=== PATIENT | female | born 1985 | race African-American/Black ===

== ENCOUNTER 2024-09-28 11:52 | Emergency (ER) | payer OTHER, SELFPAY ==
--- NOTE | ~2024-09-28 | CT_ITS ---
EXAMINATION: CT abdomen pelvis w con DATE: 09/28/2024 14:26 INDICATION: Diffuse abdominal pain and tenderness to palpation TECHNIQUE: Computed tomography (CT) of the abdomen and pelvis was performed with 100 mL Omnipaque-350 intravenous contrast. Severe motion artifact in the initial postcontrast images. Repeat scanning whi ch was accomplished in the delayed phase. Automated exposure control and iterative reconstruction syed hnique were employed. The dose-length product was 2290.62 mGy-cm. COMPARISON: None. FINDINGS: Lower thorax: Unremarkable Liver: Normal. Biliary/Gallbladder: Gallbladder is normal. No bile duct dilation. Pancreas: No mass or duct dilation. Spleen: Normal. Adrenals:No mass. Kidneys: No suspicious mass, obstructing stone, or hydronephrosis. 3 mm nonobstructing calcification in the right lower pole. GI tract: Small hiatal hernia. Mild wall edema in the transverse colon. No small or large bowel dilat ion. Normal appendix. Mesentery/Peritoneum: No ascites, mass, or free air. Retroperitoneum: No mass. Pelvis: Lobular contour of the left lower uterine segment likely due to fibroid. Normal bilateral ova saeid and urinary bladder. Soft Tissues: Small uncomplicated fat-containing umbilical hernia. Bones: No acute osseous finding. IMPRESSION: Initial post contrast images limited by severe motion artifact. Repeat imaging limited by delayed pha se. Mild wall edema in the transverse colon as can be seen with colitis. Uterine fibroid. Otherwise, no definite acute abdominopelvic process detected, within the limitations noted above. Reviewed, dictated and finalized at location K. IMPRESSION: Initial post contrast images limited by severe motion artifact. Repeat imaging limited by delayed phase. Mild wall edema in the transverse colon as can be seen with colitis. Uterine fibroid. Otherwise, no definite acute abdominopelvic process detected, within the limita tions noted above.
--- OUTSIDE RECORDS SUMMARY | 2024-09-28 11:53 | XMS_ITS | Clinical Summary ---
Author Organization [facility] Address [facility] [place] [address] Care Team Providers Care Operations Intern Name Role Phone Jasmyne Barry Primary Care Provider Allergies No known active allergies Medications amLODIPine (NORVASC) 10 MG tablet Take 1 tablet (10 mg total) by mouth daily. 30 tablet 12/07/2023 Active Active Problems Problem Noted Date Diagnosed Date Hypertensive urgency 12/05/2023 Tonsillitis 11/24/2022 Social History Tobacco Use Types Packs/Day Years Used Date Smoking Tobacco: Former Cigarettes Smokeless Tobacco: Never Tobacco Cessation:Counseling Given: Not Answered Alcohol Use Standard Drinks/Week Comments Not Currently 0 (1 standard drink = 0.6 oz pur e alcohol) Humiliation, Afraid, Rape, and Kick questionnair e Answer Date Recorded Within the last year, have y ou been afraid of your partner or ex-partner? No 11/24/2022 Within the last year, have y ou been humiliated or emotionally abused in other ways by your partner or ex-partner? No Within the last year, have y ou been kicked, hit, slapped, or otherwise physically hurt by your partner or ex-partner? No 11/24/2022 Within the last year, have y ou been raped or forced to have any kind of sexual activity by your partner or ex-partner? No 11/24/2022 Overall Financial Resource Strain (CARDIA) Answe r Date Recorded How hard is it for you to pa y for the very basics like food, housing, medical care, and heating? Not very hard 11/24/2022 Hunger Vital Sign Answer Date Recorded Within the past 12 months, y ou worried that your food would run out before you got the money to buy more. Never true 11/25/19 23 Within the past 12 months, t he food you bought just didn't last and you didn't have money to get more. Never true 11/24/2022 PRAPARE - Transportation Answer Date Re corded In the past 12 months, has l ack of transportation kept you from medical appointments or from getting medications? No 11/04 In the past 12 months, has l ack of transportation kept you from meetings, work, or from getting things needed for daily living? No 11/24/2022 Housing Stability Vital Sign Answer Garo e Recorded In the last 12 months, was t here a time when you were not able to pay the mortgage or rent on time? No 11/24/2022 In the last 12 months, how many places have you lived? 1 11/24/2022 In the last 12 months, was t here a time when you did not have a steady place to sleep or slept in a half-way (including now)? No 11/24/2022 Comments No Sex and Gender Information Value Date Recorded Sex Assigned at Not on file Legal Sex Female 2:08 PM [employer] Gender Identity Not on file Sexual Orientation Not on file Last Filed Vital Signs Vital Sign Reading Time Taken Comments Blood Pressure 130/83 12/06/2023 7:16 AM CDT Pulse 76 12/06/2023 7:16 AM CDT Temperature 37.1 C (98.8 F) 12/06/2023 11:22 AM CDT Respiratory Rate 13 12/06/2023 11:2 2 AM CDT Oxygen Saturation 92% 12/06/2023 7:1 6 AM CDT Inhaled Oxygen Concentration - - Weight 107.4 kg (236 lb 12.4 oz) 12/06/2023 11:22 AM CDT entered incorrectly on admission. Height 175.3 cm (5' 9) 12/05/2023 6:18 PM CDT Body Mass Index 34.97 12/05/2023 6:18 PM CDT Plan of Treatment Health Maintenance Due Date Last Done Comments Cervical Cancer Screening Pap Smear (Age 30 to 64) Every 3 Years 1986 Annual Physical 1989 Hepatitis C 2004 HPV Vaccines (1 - 3-dose SCDM series) 2013 Cervical Cancer Screening Pap with HPV Testing (Age 30 to 64) Every 5 Years 2016 Cervical Cancer Screening with HPV 2016 COVID-19 Vaccine (2023- season) 2023 DTaP, Tdap and Td Vaccines (6 - Td or Tdap) 11/26/2028 11/26/2018, 01/07/2004, 11/01/1992, Additional history exists Hepatitis B Vaccines Completed 07/22/1997, 03/24/1997, 02/10/1997 Meningococcal B Vaccine Aged Out No l onger eligible based on patient's age to complete this topic Meningococcal Vaccine Aged Out No tiffany paul eligible based on patient's age to complete this topic Pneumococcal Vaccine: Pediatrics (0 to 5 Years) and At-Risk Patients (6 to 49 Years) Aged Out No longer eligible based on patient's age to complete this topic RSV Immunizations Under 20 Months Aged Out No longer eligible based on patient's age to complete this topic Goals Goal Patient Goal Type Associated Problems Recent Progress Patient-Stated? Author Health - patient able to perform ADLs independently Lifestyle No Ronnie Del Rio RN Health - patient able to perform ADLs independently Lifestyle No Alma Leos RN Insurance [facility] Advance Directives * Full Code (Latest Code Status on File) Date Activated Date Inactivated Comments 12/05/2023 9:58 PM 12/06/2023 4:51 PM * Full Code Date Activated Date Inactivated Comments 11/24/2022 2:35 PM 11/25/2022 2:28 PM Care Teams Operations Intern Relationship Specialty Start Date End Date Jasmyne Barry PA [address] [place] [address] PCP - General PHYSICIAN [employer] 11/25/22
--- OUTSIDE RECORDS SUMMARY | 2024-09-28 11:54 | XMS_ITS | Data Portability ---
[facility] Organization [facility] Address [address] [place] [address] Care Team Providers Care Snowboarder Name Role Phone RENÉ JJ Health Science Instructor Assessment Encounter Date Assessment Date Assessment LastModified by Organization Details LastModified Time 05/28/2024 05/28/2024 Arabella WYATT [email or web address] Not available 05/28/2024 17:36:26 Plan of Treatment Reminders Order Date Submit Date Provider Last Modified By Organization Details Last Modified Time Details Appointments None recorded. Lab HbA1c (hemoglobi n A1c), blood 2024 025 [email or web address] In-Office Order, Internal Use Only DO Not Attach Compendium DO Not Attach Compendium, Do Not Delete/merge, [id number] 5 17:51:15 culture, urine 2023 024 [facility] LAB[facility], Theodore [address], [address], [place], [address], 4 08:31:20 urinalysis , dipstick 2023 024 In-Office Order, Internal Use Only DO Not Attach Compendium DO Not Attach Compendium, Do Not Delete/merge, [id number] 10:48:13 CBC w/ auto diff 2023 024 [facility] SANCHEZ, Theodore [address], [address], [place], [address], 4 06:22:10 lipid panel, serum 2023 024 [facility] BERMUDEZRP, Theodore Martinez, [address], [place], [address], 4 06:22:06 HbA1c (hemoglobi n A1c), blood 2023 024 [facility] BERMUDEZRP, Theodore [address], [address], [place], [address], 4 06:22:09 HIV 1 + 2, meaningful use set 2023 024 [facility] SANCHEZ, Theodore Lyon Juan, [address], [place], [address], 4 06:22:12 T3, free, serum or plasma 2023 024 [facility] BERMUDEZ, Theodore Lyon [address], [address], [place], [address], 4 06:22:11 TSH + free T4, serum 2023 024 [facility] SANCHEZ, Theodore Lyon [address], [address], [place], [address], 4 06:22:05 CMP, serum or plasma 2023 024 [facility] BERMUDEZ, Theodore Lyon [address], [address], [place], [address], 4 06:22:07 albumin/cr eatinine, mass ratio, urine 2023 024 [facility] BERMUDEZXAVIER, Theodore Lyon Juan, [address], [place], [address], 4 10:13:32 Referral None recorded. Procedures fine needle aspiration , ultrasound guided, thyroid (PROC) 2024 025 [facility] ([facility]), [address] [place], [address], 5 15:47:59 Surgeries None recorded. Imaging US, kidney 2023 024 [facility] ([facility]), [address] [place], [address], 4 11:52:24 US, thyroid 2023 024 [facility] ([facility]), [address] [place], [address], 4 12:02:01 Medication Orders metformin ER 500 mg tablet,ext ended release 24 hr 2024 025 [facility], [address] [place] [address], [address], 5 17:51:21 hydroxyzin e HCl 25 mg tablet 2024 025 [facility], [address] [place] [address], [address], 5 17:51:30 sertraline 50 mg tablet 2024 025 [facility], [address] [place] [address], [address], 5 17:51:26 Miralax 17 gram/dose oral powder 2024 025 [facility], [address] [place] [address], [address], 5 17:51:23 amlodipine 10 mg tablet 2024 025 [facility], [address] [place] [address], [address], 5 17:51:31 losartan 100 mg tablet 2024 025 [facility] [address], [address] [place] [address], [address], 5 17:51:27 amlodipine 10 mg tablet 2024 025 [facility] [address], [address] [place] [address], [address], 5 16:31:34 losartan 50 mg tablet 2024 025 [facility] [address], [address] [place] [address], [address], 5 18:12:36 sertraline 50 mg tablet 2024 025 [facility] [address], [address] [place] [address], [address], 5 16:31:35 hydroxyzin e HCl 25 mg tablet 2024 025 [facility] [address], [address] [place] [address], [address], 5 16:31:31 acetaminop hen 500 mg tablet 2023 025 [facility] [address], [address] [place] [address], [address], 5 16:45:12 sertraline 50 mg tablet 2023 024 [facility] [address], [address] [place] [address], [address], 4 16:52:29 acetaminop hen 500 mg tablet [email or web address] [place] [address] [address], [address] [place] [address], [address], 5 16:45:01 amlodipine 10 mg tablet 2023 024 [facility], [address] [place], [address], 4 11:30:20 losartan 25 mg tablet 2023 024 [email or web address] [facility], [address] [place], [address], 5 17:47:56 sertraline 50 mg tablet 2023 024 [facility], [address] [place], [address], 11:30:21 sertraline 25 mg tablet 2023 025 [facility] [address], [address] [place], [address], 15:52:17 amlodipine 10 mg tablet 2023 024 [facility] [address], [facility] [place], [address], 10:48:31 Patient TargetsNo targets recorded. Patient Instructions Encounter Date Encounter Id Patient Instructions Last Modified By Organization Details Last Modified Time 11/26/2023 [id number] A healthy lifestyle: care instructions [email or web address] Not available 11/26/2023 10:48:13 learning about high blood pressure Not available 11/26/2023 10:48:13 12/12/2023 [id number] A healthy lifestyle: care instructions [email or web address] Not available 12/12/2023 11:30:01 tension headache : care instructions [email or web address] Not available 12/12/2023 11:30:01 01/07/2024 [id number] A healthy lifestyle: care instructions [email or web address] Not available 01/07/2024 16:52:24 tension headache : care instructions [email or web address] Not available 01/07/2024 16:52:24 04/15/2024 [id number] A healthy lifestyle: care instructions [email or web address] Not available 04/15/2024 16:31:17 05/28/2024 [id number] learning about swallowing problems Not available 05/28/2024 17:51:15 thyroid nodules: care instructions Not available 05/28/2024 17:51:15 A healthy lifestyle: care instructions [email or web address] Not available 05/28/2024 17:51:47 constipation: care instructions [email or web address] Not available 05/28/2024 17:51:15 learning about high blood pressure [email or web address] Not available 05/28/2024 17:51:15 Reason for Referral None Reported. Results Created Date Observation Date Name Description Value Unit Range Abnormal Flag Note LastModifiedBy Organization Detail LastModifiedTime 11/26/19 24 2023 ALBUM IN/CR EATIN INE RATIO ,URIN E creatinine, urine 149.7 mg/dL notest ab. Not Available [facility] ([facility]) [address] [place], [address], 2023 10:13:32 11/26/19 24 2023 ALBUM IN/CR EATIN INE RATIO ,URIN E albumin, urine 31.7 ug/mL notest ab. Not Available [facility] ([facility]) [address] [place], [address], 2023 10:13:32 11/26/19 24 2023 ALBUM IN/CR EATIN INE RATIO ,URIN E alb/creat ratio 21 mg/g_ creat 0-29 Rosemary l: 0 - 29 Moder ately incre ased: 30 - 300 Sever tricia incre ased: >300 Not Available [facility] ([facility]) [address] [place], [address], 2023 10:13:32 11/26/19 24 11/28/2023 URINE CULTU RE, ROUTI NE urine culture, routine FINAL REPORT Not Available [facility] ([facility]) [address] [place], [address], 11/28/2023 08:31:20 11/26/19 24 11/28/2023 URINE CULTU RE, ROUTI NE result 1 COMMEN T Mixed uroge nital faheem 50,00 0-100 ,000 colon y formi ng units per mL Not Available [facility] ([facility]) [address] [facility], [place], [address], 11/28/2023 08:31:20 11/26/19 24 11/26/2023 urina lysis , dipst ick Leukocytes Negati ve Not Available In-Office Order Internal Use Only DO Not Attach Compendium DO Not Attach Compendium, Do Not Delete/merge, 11/26/2023 10:29:39 11/26/19 24 11/26/2023 urina lysis , dipst ick Nitrite negati ve Not Available In-Office Order Internal Use Only DO Not Attach Compendium DO Not Attach Compendium, Do Not Delete/merge, 11/26/2023 10:29:39 11/26/19 24 11/26/2023 urina lysis , dipst ick Urobilinogen 1 Not Available In-Of fice Order Internal Use Only DO Not Attach Compendium DO Not Attach Compendium, Do Not Delete/merge, 11/26/2023 10:29:39 11/26/19 24 11/26/2023 urina lysis , dipst ick Protein Negati ve Not Available In-Office Order Internal Use Only DO Not Attach Compendium DO Not Attach Compendium, Do Not Delete/merge, 11/26/2023 10:29:39 11/26/19 24 11/26/2023 urina lysis , dipst ick pH 7.0 Not Available In-Office Order Internal Use Only DO Not Attach Compendium DO Not Attach Compendium, Do Not Delete/merge, 11/26/2023 10:29:39 11/26/19 24 11/26/2023 urina lysis , dipst ick Blood Negati ve Not Available In-Office Order Internal Use Only DO Not Attach Compendium DO Not Attach Compendium, Do Not Delete/merge, 11/26/2023 10:29:39 11/26/19 24 11/26/2023 urina lysis , dipst ick Specific Weather[place] 1.020 Not Available In-Off ice Order Internal Use Only DO Not Attach Compendium DO Not Attach Compendium, Do Not Delete/merge, [facility] 11/26/2023 10:29:39 11/26/19 24 11/26/2023 urina lysis , dipst ick Ketone Negati ve Not Available In-Office Order Internal Use Only DO Not Attach Compendium DO Not Attach Compendium, Do Not Delete/merge, [facility] 11/26/2023 10:29:39 11/26/19 24 11/26/2023 urina lysis , dipst ick Bilirubin Negati ve Not Available In-Office Order Internal Use Only DO Not Attach Compendium DO Not Attach Compendium, Do Not Delete/merge, [facility] 11/26/2023 10:29:39 11/26/19 24 11/26/2023 urina lysis , dipst ick Glucose Negati ve Not Available In-Office Order Internal Use Only DO Not Attach Compendium DO Not Attach Compendium, Do Not Delete/merge, [facility] 11/26/2023 10:29:39 11/26/19 24 11/26/2023 urina lysis , dipst ick Appearance Clear Not Available In-Offi ce Order Internal Use Only DO Not Attach Compendium DO Not Attach Compendium, Do Not Delete/merge, [facility] 11/26/2023 10:29:39 11/26/19 24 11/26/2023 urina lysis , dipst ick Color Yellow Not Available In-Office Order Internal Use Only DO Not Attach Compendium DO Not Attach Compendium, Do Not Delete/merge, [facility] 11/26/2023 10:29:39 12/05/1912/06/2023 Phosp hate [Mass /volu me] in Serum or Plasm a phosphate [mass/volume ] in serum or plasma 2.2 text: 2.5 - 4.9 mg/dL low PHOSP HORUS 2.2 (L) 2.5 - 4.9 MG/DL 12/05 1:00 AM CDT [facility] Not Available Not Available 04/15/2024 04:24:10 12/05/1912/06/2023 Phosp hate [Mass /volu me] in Serum or Plasm a interpretati on and review of laboratory results Abnorm al Not Available Not Available 04:24:10 12/05/19 24 12/06/2023 Magne sium [Mass /volu me] in Serum or Plasm a magnesium [mass/volume ] in serum or plasma 2.2 text: 1.8 - 2.4 mg/dL MAGNE SIUM 2.2 1.8 - 2.4 MG/DL 12/05 1:00 AM CDT [facility] Not Available Not Available 04/15/2024 04:24:10 12/05/1912/05/2023 aPTT in Plate let poor plasm a by Coagu latio n assay APTT in platelet poor plasma by coagulation assay 30.1 text: 25.1 - 36.5 sec PTT 30.1 25.1 - 36.5 SEC 12/04 9:22 PM CDT [facility] Not Available Not Available 04/15/2024 04:24:10 12/05/1912/05/2023 Proth rombi n time (PT) prothrombin time (PT) 11.7 text: 10.2 - 12.9 sec PROTI ME 11.7 10.2 - 12.9 SEC 12/04 9:22 PM CDT [facility] Not Available Not Available 04/15/2024 04:24:10 12/05/19 24 12/05/2023 Proth rombi n time (PT) INR in platelet poor plasma by coagulation assay 1 INR 1.0 12/04 9:22 PM [facility] Not Available Not Available 04/15/2024 04:24:10 12/05/19 24 12/05/2023 Compr ehens gene metab olic 2000 panel - Serum or Plasm a glucose [mass/volume ] in serum or plasma 137 text: 70 - 99 mg/dL high GLUCO SE 137 (H) 70 - 99 MG/DL 12/04 9:16 PM CDT [facility] Not Available Not Available 04/15/2024 04:24:10 12/05/19 24 12/05/2023 Compr ehens gene metab olic 2000 panel - Serum or Plasm a urea nitrogen [mass/volume ] in serum or plasma 10 text: 7 - 18 mg/dL BUN 10 7 - 18 MG/DL 12/04 9:16 PM CDT [facility] Not Available Not Available 04/15/2024 04:24:10 12/05/19 24 12/05/2023 Compr ehens gene metab olic 2000 panel - Serum or Plasm a creatinine [mass/volume ] in serum or plasma 0.71 text: 0.55 - 1.02 mg/dL CREAT ININE S/P/B 0.71 0.55 - 1.02 MG/DL 12/04 9:16 PM CDT [facility] Not Available Not Available 04/15/2024 04:24:10 12/05/19 24 12/05/2023 Compr ehens gene metab olic 2000 panel - Serum or Plasm a sodium [moles/volum e] in serum or plasma 136 text: 136 - 145 mmol/L SODIU M S/P/B 136 136 - 145 MMOL/ L 12/04 9:16 PM CDT [facility] Not Available Not Available 04/15/2024 04:24:10 12/05/19 24 12/05/2023 Compr ehens gene metab olic 2000 panel - Serum or Plasm a potassium [moles/volum e] in serum or plasma 3.3 text: 3.5 - 5.1 mmol/L low POTAS SIUM S/P/B 3.3 (L) 3.5 - 5.1 MMOL/ L 12/04 9:16 PM CDT [facility] Not Available Not Available 04/15/2024 04:24:10 12/05/19 24 12/05/2023 Compr ehens gene metab olic 1999 panel - Serum or Plasm a chloride [moles/volum e] in serum or plasma 107 text: 97 - 115 mmol/L CHLOR FRANKLYN S/P/B 107 97 - 115 MMOL/ L 12/04 9:16 PM CDT [facility] Not Available Not Available 04/15/2024 04:24:10 12/05/19 24 12/05/2023 Compr ehens gene metab olic 1999 panel - Serum or Plasm a carbon dioxide, total [moles/volum e] in serum or plasma 22.9 text: 21 - 32 mmol/L CO2 22.9 21 - 32 MMOL/ L 12/04 9:16 PM CDT [facility] Not Available Not Available 04/15/2024 04:24:10 12/05/19 24 12/05/2023 Compr ehens gene metab olic 2000 panel - Serum or Plasm a calcium [mass/volume ] in serum or plasma 9 text: 8.5 - 10.1 mg/dL CALCI UM S/P/B 9.0 8.5 - 10.1 MG/DL 12/04 9:16 PM CDT [facility] Not Available Not Available 04/15/2024 04:24:10 12/05/19 24 12/05/2023 Compr ens gene metab olic 2000 panel - Serum or Plasm a bilirubin.to luis [mass/volume ] in serum or plasma 0.5 text: 0.2 - 1.2 mg/dL BILIR UBIN TOTAL S/P/B 0.5 0.2 - 1.2 MG/DL 12/04 9:16 PM CDT [facility] Not Available Not Available 04/15/2024 04:24:10 12/05/19 24 12/05/2023 Compr ehens gene metab olic 2000 panel - Serum or Plasm a protein [mass/volume ] in serum or plasma 8.2 text: 6.4 - 8.2 g/dL TOTAL PROTE IN S/P/B 8.2 6.4 - 8.2 G/DL 12/04 9:16 PM CDT [facility] Not Available Not Available 04/15/2024 04:24:10 12/05/19 24 12/05/2023 Compr ehens gene metab olic 1999 panel - Serum or Plasm a albumin [mass/volume ] in serum or plasma 4.1 text: 3.4 - 5.0 g/dL ALBUM IN S/P/B 4.1 3.4 - 5.0 G/DL 12/04 9:16 PM CDT [facility] Not Available Not Available 04/15/2024 04:24:10 12/05/1912/05/2023 Compr ehens gene metab olic 1999 panel - Serum or Plasm a aspartate aminotransfe rase [enzymatic activity/vol ume] in serum or plasma 35 U/L low: 15U/Lh igh: 37U/L AST 35 15 - 37 U/L 12/04 9:16 PM CDT [facility] Not Available Not Available 04/15/2024 04:24:10 12/05/19 24 12/05/2023 Compr ehens gene metab olic 2000 panel - Serum or Plasm a alanine aminotransfe rase [enzymatic activity/vol ume] in serum or plasma 46 U/L low: 14U/Lh igh: 55U/L ALT 46 14 - 55 U/L 12/04 9:16 PM CDT [facility] Not Available Not Available 04/15/2024 04:24:10 12/05/19 24 12/05/2023 Compr ehens gene metab olic 2000 panel - Serum or Plasm a alkaline phosphatase [enzymatic activity/vol ume] in serum or plasma 90 U/L low: 50U/Lh igh: 136U/L ALKAL INE PHOSP HATAS E S/P/B 90 50 - 136 U/L 12/04 9:16 PM CDT [facility] Not Available Not Available 04/15/2024 04:24:10 12/05/19 24 12/05/2023 Compr ehens gene metab olic 1999 panel - Serum or Plasm a anion gap in serum or plasma 6.1 text: 2 - 10 mmol/L ANION GAP 6.1 2 - 10 MMOL/ L 12/04 9:16 PM CDT [facility] Not Available Not Available 04/15/2024 04:24:10 12/05/19 24 12/05/2023 Compr ehens gene metab olic 1999 panel - Serum or Plasm a urea nitrogen/cre atinine [mass ratio] in serum or plasma 14.2 low: 6high: 26 BUN CREAT ININE RATIO 14.2 6 - 26 12/04 9:16 PM CDT [facility] Not Available Not Available 04/15/2024 04:24:10 [facility]05[facility] - Serum or Plasm a albumin/glob ulin [mass ratio] in serum or plasma 1 text: 1.0 - 2.0 ratio A/G RATIO 1.0 1.0 - 2.0 RATIO 12/04 9:16 PM CDT [facility] Not Available Not Available 04/15/2024 04:24:10 12/05/1912/05/2023 [facility] ehens gene metab olic 2000 panel - Serum or Plasm a glomerular filtration rate/1.73 sq M.predicted [volume rate/area] in serum, plasma or blood by creatinine-b ased formula (CKD-epi 2020) text: >90 mL/min /1.73 M2 GFR ESTIM ATE >90 >90 ML/IL N/1.7 3 M2 12/04 9:16 PM CDT [facility] Not Available Not Available 04/15/2024 04:24:10 12/05/19 24 12/05/2023 [facility] LIKECHARITYens gene metab olic 2000 panel - Serum or Plasm a interpretati on and review of laboratory results Abnorm al Not Available Not Available 04:24:10 12/05/19 24 12/05/2023 CBC W Auto Diffe renti al panel - Blood leukocytes [#/volume] in blood by automated count 10.83 text: 4.5 - 11.0 x10'3/ uL WBC 10.83 4.5 - 11.0 x10'3 /uL 12/04 8:47 PM CDT [facility] Not Available Not Available 04/15/2024 04:24:10 12/05/19 24 12/05/2023 CBC W Auto Diffe renti al panel - Blood erythrocytes [#/volume] in blood by automated count 4.7 text: 4.20 - 5.40 x10'6/ uL RBC 4.70 4.20 - 5.40 x10'6 /uL 12/04 8:47 PM CDT [facility] Not Available Not Available 04/15/2024 04:24:10 12/05/19 24 12/05/2023 CBC W Auto Diffe cyrus al panel - Blood hemoglobin [mass/volume ] in blood 14.5 text: 12.0 - 16.0 g/dL HGB 14.5 12.0 - 16.0 G/DL 12/04 8:47 PM CDT [facility] Not Available Not Available 04/15/2024 04:24:10 12/05/19 24 12/05/2023 CBC W Auto Diffe enedinati al panel - Blood hematocrit [volume fraction] of blood 42.6 % low: 38%hig h: 48% HCT 42.6 38.0 - 48.0 % 12/04 8:47 PM CDT [facility] Not Available Not Available 04/15/2024 04:24:10 12/05/19 24 12/05/2023 CBC W Auto Diffe renti al panel - Blood MCV [entitic volume] 90.6 text: 81.0 - 99.0 fL MCV 90.6 81.0 - 99.0 FL 12/04 8:47 PM CDT [facility] Not Available Not Available 04/15/2024 04:24:10 12/05/19 24 12/05/2023 CBC W Auto Diffe renti al panel - Blood MCH [entitic mass] 30.9 pg low: 27pghi gh: 31pg MCH 30.9 27.0 - 31.0 PG 12/04 8:47 PM CDT [facility] Not Available Not Available 04/15/2024 04:24:10 12/05/19 24 12/05/2023 CBC W Auto Diffe renti al panel - Blood MCHC [mass/volume ] 34 text: 32.0 - 36.0 g/dL MCHC 34.0 32.0 - 36.0 G/DL 12/04 8:47 PM CDT [facility] Not Available Not Available 04/15/2024 04:24:10 12/05/19 24 12/05/2023 CBC W Auto Diffe renti al panel - Blood erythrocyte distribution width [entitic volume] by automated count 13.4 % low: 11.5%h igh: 14.5% RDW 13.4 11.5 - 14.5 % 12/04 8:47 PM CDT [facility] Not Available Not Available 04/15/2024 04:24:10 12/05/19 24 12/05/2023 CBC W Auto Diffe renti al panel - Blood platelets [#/volume] in blood 217 text: 130 - 400 x10'3/ uL PLT 217 130 - 400 x10'3 /uL 12/04 8:47 PM CDT [facility] Not Available Not Available 04/15/2024 04:24:10 12/05/19 24 12/05/2023 CBC W Auto Diffe renti al panel - Blood platelet mean volume [entitic volume] in blood 13 text: 9.3 - 12.2 fL high MPV 13.0 (H) 9.3 - 12.2 FL 12/04 8:47 PM CDT [facility] Not Available Not Available 04/15/2024 04:24:10 12/05/19 24 12/05/2023 CBC W Auto Diffe renti al panel - Blood differential cell count method - blood AUTOMA COMPA DIFFER ENTIAL DIFFE RENTI AL TYPE AUTOM ATED DIFFE RENTI AL 12/04 8:47 PM CDT [facility] Not Available Not Available 04/15/2024 04:24:10 12/05/19 24 12/05/2023 CBC W Auto Diffe renti al panel - Blood neutrophils/ 100 leukocytes in blood by automated count 53.5 % NEUTR OPHIL S % 53.5 % 12/04 8:47 PM CDT [facility] Not Available Not Available 04/15/2024 04:24:10 12/05/19 24 12/05/2023 CBC W Auto Diffe renti al panel - Blood lymphocytes/ 100 leukocytes in blood by automated count 34.5 % LYMPH OCYTE S % 34.5 % 12/04 8:47 PM CDT [facility] Not Available Not Available 04/15/2024 04:24:10 12/05/19 24 12/05/2023 CBC W Auto Diffe renti al panel - Blood monocytes/10 0 leukocytes in blood by automated count 8.3 % MONOC YTES % 8.3 % 12/04 8:47 PM CDT [facility] Not Available Not Available 04/15/2024 04:24:10 12/05/19 24 12/05/2023 CBC W Auto Diffe renti al panel - Blood eosinophils/ 100 leukocytes in blood by automated count 2.7 % EOSIN OPHIL S 2.7 % 12/04 8:47 PM CDT [facility] Not Available Not Available 04/15/2024 04:24:10 12/05/19 24 12/05/2023 CBC W Auto Diffe renti al panel - Blood basophils/10 0 leukocytes in blood by automated count 0.6 % BASOP HILS 0.6 % 12/04 8:47 PM CDT [facility] Not Available Not Available 04/15/2024 04:24:10 12/05/19 24 12/05/2023 CBC W Auto Diffe renti al panel - Blood immature granulocytes /100 leukocytes in blood by automated count 0.4 % IMMAT URE GRANS % 0.4 % 12/04 8:47 PM CDT [facility] Not Available Not Available 04/15/2024 04:24:10 12/05/19 24 12/05/2023 CBC W Auto Diffe renti al panel - Blood neutrophils [#/volume] in blood 5.79 text: 1.80 - 7.70 x10'3/ uL ABS. NEUTR OPHIL S 5.79 1.80 - 7.70 x10'3 /uL 12/04 8:47 PM CDT [facility] Not Available Not Available 04/15/2024 04:24:10 12/05/19 24 12/05/2023 CBC W Auto Diffe renti al panel - Blood lymphocytes [#/volume] in blood 3.74 text: 1.00 - 4.80 x10'3/ uL ABS. LYMPH OCYTE S 3.74 1.00 - 4.80 x10'3 /uL 12/04 8:47 PM CDT [facility] Not Available Not Available 04/15/2024 04:24:10 12/05/19 24 12/05/2023 CBC W Auto Diffe renti al panel - Blood monocytes [#/volume] in blood 0.9 text: 0.24 - 0.86 x10'3/ uL high ABS. MONOC YTES 0.90 (H) 0.24 - 0.86 x10'3 /uL 12/04 8:47 PM CDT [facility] Not Available Not Available 04/15/2024 04:24:10 12/05/19 24 12/05/2023 CBC W Auto Diffe renti al panel - Blood eosinophils [#/volume] in blood 0.29 text: 0.04 - 0.36 x10'3/ uL ABS. EOSIN OPHIL S 0.29 0.04 - 0.36 x10'3 /uL 12/04 8:47 PM CDT [facility] Not Available Not Available 04/15/2024 04:24:10 12/05/19 24 12/05/2023 CBC W Auto Diffe renti al panel - Blood basophils [#/volume] in blood 0.07 text: 0.01 - 0.08 x10'3/ uL ABS. BASOP HILS 0.07 0.01 - 0.08 x10'3 /uL 12/04 8:47 PM CDT [facility] Not Available Not Available 04/15/2024 04:24:10 12/05/19 24 12/05/2023 CBC W Auto Diffe renti al panel - Blood immature granulocytes [#/volume] in blood 0.04 text: 0.00 - 0.49 x10'3/ uL ABS. IMMAT URE GRANU LOCYT ES 0.04 0.00 - 0.49 x10'3 /uL 12/04 8:47 PM CDT [facility] Not Available Not Available 04/15/2024 04:24:10 12/05/19 24 12/05/2023 CBC W Auto Diffe renti al panel - Blood interpretati on and review of laboratory results Abnorm al Not Available Not Available 04:24:10 12/06/19 24 12/06/2023 Basic metab olic 2000 panel - Serum or Plasm a glucose [mass/volume ] in serum or plasma 150 text: 70 - 99 mg/dL high GLUCO SE 150 (H) 70 - 99 MG/DL 12/05 6:54 AM CDT [facility] Not Available Not Available 04/15/2024 04:24:11 12/06/19 24 12/06/2023 Basic metab olic 2000 panel - Serum or Plasm a urea nitrogen [mass/volume ] in serum or plasma 9 text: 7 - 18 mg/dL BUN 9 7 - 18 MG/DL 12/05 6:54 AM CDT [facility] Not Available Not Available 04/15/2024 04:24:11 12/06/19 24 12/06/2023 Basic metab olic 2000 panel - Serum or Plasm a creatinine [mass/volume ] in serum or plasma 0.81 text: 0.55 - 1.02 mg/dL CREAT ININE S/P/B 0.81 0.55 - 1.02 MG/DL 12/05 6:54 AM CDT [facility] Not Available Not Available 04/15/2024 04:24:11 12/06/1912/06/2023 Basic metab olic 1999 panel - Serum or Plasm a sodium [moles/volum e] in serum or plasma 136 text: 136 - 145 mmol/L SODIU M S/P/B 136 136 - 145 MMOL/ L 12/05 6:54 AM CDT [facility] Not Available Not Available 04/15/2024 04:24:11 12/06/1912/06/2023 Basic metab olic 2000 panel - Serum or Plasm a potassium [moles/volum e] in serum or plasma 4 text: 3.5 - 5.1 mmol/L POTAS SIUM S/P/B 4.0 3.5 - 5.1 MMOL/ L 12/05 6:54 AM CDT [facility] Not Available Not Available 04/15/2024 04:24:11 12/06/1912/06/2023 Basic metab olic 2000 panel - Serum or Plasm a chloride [moles/volum e] in serum or plasma 108 text: 97 - 115 mmol/L CHLOR FRANKLYN S/P/B 108 97 - 115 MMOL/ L 12/05 6:54 AM CDT [facility] Not Available Not Available 04/15/2024 04:24:11 12/06/1912/06/2023 Basic metab olic 2000 panel - Serum or Plasm a carbon dioxide, total [moles/volum e] in serum or plasma 22.7 text: 21 - 32 mmol/L CO2 22.7 21 - 32 MMOL/ L 12/05 6:54 AM CDT [facility] Not Available Not Available 04/15/2024 04:24:11 12/06/1912/06/2023 Basic metab olic 2000 panel - Serum or Plasm a calcium [mass/volume ] in serum or plasma 8.8 text: 8.5 - 10.1 mg/dL CALCI UM S/P/B 8.8 8.5 - 10.1 MG/DL 12/05 6:54 AM CDT [facility] Not Available Not Available 04/15/2024 04:24:11 12/06/1912/06/2023 Basic metab olic 2000 panel - Serum or Plasm a anion gap in serum or plasma 5.3 text: 2 - 10 mmol/L ANION GAP 5.3 2 - 10 MMOL/ L 12/05 6:54 AM T [facility] Not Available Not Available 04/15/2024 04:24:11 12/06/1912/06/2023 Basic metab olic 2000 panel - Serum or Plasm a urea nitrogen/cre atinine [mass ratio] in serum or plasma 11.1 low: 6high: 26 BUN CREAT ININE RATIO 11.1 6 - 26 12/05 6:54 AM CDT [facility] Not Available Not Available 04/15/2024 04:24:11 12/06/1912/06/2023 Basic metab olic 2000 panel - Serum or Plasm a glomerular filtration rate/1.73 sq M.predicted [volume rate/area] in serum, plasma or blood by creatinine-b ased formula (CKD-epi 2020) text: >90 mL/min /1.73 M2 GFR ESTIM ATE >90 >90 ML/IL N/1.7 3 M2 12/05 6:54 AM CDT [facility] Not Available Not Available 04/15/2024 04:24:11 12/06/19 24 12/06/2023 Basic metab olic 2000 panel - Serum or Plasm a interpretati on and review of laboratory results Abnorm al Not Available Not Available 04:24:11 12/06/19 24 12/06/2023 CBC W Auto Diffe renti al panel - Blood leukocytes [#/volume] in blood by automated count 8.01 text: 4.5 - 11.0 x10'3/ uL WBC 8.01 4.5 - 11.0 x10'3 /uL 12/05 6:35 AM CDT [facility] Not Available Not Available 04/15/2024 04:24:11 12/06/19 24 12/06/2023 CBC W Auto Diffe renti al panel - Blood erythrocytes [#/volume] in blood by automated count 5.04 text: 4.20 - 5.40 x10'6/ uL RBC 5.04 4.20 - 5.40 x10'6 /uL 12/05 6:35 AM CDT [facility] Not Available Not Available 04/15/2024 04:24:11 12/06/19 24 12/06/2023 CBC W Auto Diffe renti al panel - Blood hemoglobin [mass/volume ] in blood 15 text: 12.0 - 16.0 g/dL HGB 15.0 12.0 - 16.0 G/DL 12/05 6:35 AM CDT [facility] Not Available Not Available 04/15/2024 04:24:11 12/06/19 24 12/06/2023 CBC W Auto Diffe renti al panel - Blood hematocrit [volume fraction] of blood 45.7 % low: 38%hig h: 48% HCT 45.7 38.0 - 48.0 % 12/05 6:35 AM CDT [facility] Not Available Not Available 04/15/2024 04:24:11 12/06/19 24 12/06/2023 CBC W Auto Diffe renti al panel - Blood MCV [entitic volume] 90.7 text: 81.0 - 99.0 fL MCV 90.7 81.0 - 99.0 FL 12/05 6:35 AM CDT [facility] Not Available Not Available 04/15/2024 04:24:11 12/06/19 24 12/06/2023 CBC W Auto Diffe renti al panel - Blood MCH [entitic mass] 29.8 pg low: 27pghi gh: 31pg MCH 29.8 27.0 - 31.0 PG 12/05 6:35 AM CDT [facility] Not Available Not Available 04/15/2024 04:24:11 12/06/19 24 12/06/2023 CBC W Auto Diffe renti al panel - Blood MCHC [mass/volume ] 32.8 text: 32.0 - 36.0 g/dL MCHC 32.8 32.0 - 36.0 G/DL 12/05 6:35 AM CDT [facility] Not Available Not Available 04/15/2024 04:24:11 12/06/19 24 12/06/2023 CBC W Auto Diffe renti al panel - Blood erythrocyte distribution width [entitic volume] by automated count 13.4 % low: 11.5%h igh: 14.5% RDW 13.4 11.5 - 14.5 % 12/05 6:35 AM T [facility] Not Available Not Available 04/15/2024 04:24:11 12/06/19 24 12/06/2023 CBC W Auto Diffe renti al panel - Blood platelets [#/volume] in blood 229 text: 130 - 400 x10'3/ uL PLT 229 130 - 400 x10'3 /uL 12/05 6:35 AM CDT [facility] Not Available Not Available 04/15/2024 04:24:11 12/06/19 24 12/06/2023 CBC W Auto Diffe renti al panel - Blood platelet mean volume [entitic volume] in blood 13.2 text: 9.3 - 12.2 fL high MPV 13.2 (H) 9.3 - 12.2 FL 12/05 6:35 AM CDT [facility] Not Available Not Available 04/15/2024 04:24:11 12/06/19 24 12/06/2023 CBC W Auto Diffe renti al panel - Blood differential cell count method - blood AUTOMA COMPA DIFFER ENTIAL DIFFE RENTI AL TYPE AUTOM ATED DIFFE RENTI AL 12/05 6:35 AM CDT [facility] Not Available Not Available 04/15/2024 04:24:11 12/06/19 24 12/06/2023 CBC W Auto Diffe renti al panel - Blood neutrophils/ 100 leukocytes in blood by automated count 85.4 % NEUTR OPHIL S % 85.4 % 12/05 6:35 AM CDT [facility] Not Available Not Available 04/15/2024 04:24:11 12/06/19 24 12/06/2023 CBC W Auto Diffe renti al panel - Blood lymphocytes/ 100 leukocytes in blood by automated count 12.9 % LYMPH OCYTE S % 12.9 % 12/05 6:35 AM CDT [facility] Not Available Not Available 04/15/2024 04:24:11 12/06/19 24 12/06/2023 CBC W Auto Diffe renti al panel - Blood monocytes/10 0 leukocytes in blood by automated count 1 % MONOC YTES % 1.0 % 12/05 6:35 AM CDT [facility] Not Available Not Available 04/15/2024 04:24:11 12/06/19 24 12/06/2023 CBC W Auto Diffe renti al panel - Blood eosinophils/ 100 leukocytes in blood by automated count 0 % EOSIN OPHIL S 0.0 % 12/05 6:35 AM CDT [facility] Not Available Not Available 04/15/2024 04:24:11 12/06/19 24 12/06/2023 CBC W Auto Diffe renti al panel - Blood basophils/10 0 leukocytes in blood by automated count 0.2 % BASOP HILS 0.2 % 12/05 6:35 AM CDT [facility] Not Available Not Available 04/15/2024 04:24:11 12/06/19 24 12/06/2023 CBC W Auto Diffe renti al panel - Blood immature granulocytes /100 leukocytes in blood by automated count 0.5 % IMMAT URE GRANS % 0.5 % 12/05 6:35 AM CDT [facility] Not Available Not Available 04/15/2024 04:24:11 12/06/19 24 12/06/2023 CBC W Auto Diffe renti al panel - Blood neutrophils [#/volume] in blood 6.84 text: 1.80 - 7.70 x10'3/ uL ABS. NEUTR OPHIL S 6.84 1.80 - 7.70 x10'3 /uL 12/05 6:35 AM CDT [facility] Not Available Not Available 04/15/2024 04:24:11 12/06/19 24 12/06/2023 CBC W Auto Diffe renti al panel - Blood lymphocytes [#/volume] in blood 1.03 text: 1.00 - 4.80 x10'3/ uL ABS. LYMPH OCYTE S 1.03 1.00 - 4.80 x10'3 /uL 12/05 6:35 AM CDT [facility] Not Available Not Available 04/15/2024 04:24:11 12/06/19 24 12/06/2023 CBC W Auto Diffe renti al panel - Blood monocytes [#/volume] in blood 0.08 text: 0.24 - 0.86 x10'3/ uL low ABS. MONOC YTES 0.08 (L) 0.24 - 0.86 x10'3 /uL 12/05 6:35 AM CDT [facility] Not Available Not Available 04/15/2024 04:24:11 12/06/19 24 12/06/2023 CBC W Auto Diffe renti al panel - Blood eosinophils [#/volume] in blood 0 text: 0.04 - 0.36 x10'3/ uL low ABS. EOSIN OPHIL S 0.00 (L) 0.04 - 0.36 x10'3 /uL 12/05 6:35 AM CDT [facility] Not Available Not Available 04/15/2024 04:24:11 12/06/19 24 12/06/2023 CBC W Auto Diffe renti al panel - Blood basophils [#/volume] in blood 0.02 text: 0.01 - 0.08 x10'3/ uL ABS. BASOP HILS 0.02 0.01 - 0.08 x10'3 /uL 12/05 6:35 AM CDT [facility] Not Available Not Available 04/15/2024 04:24:11 12/06/19 24 12/06/2023 CBC W Auto Diffe renti al panel - Blood immature granulocytes [#/volume] in blood 0.04 text: 0.00 - 0.49 x10'3/ uL ABS. IMMAT URE GRANU LOCYT ES 0.04 0.00 - 0.49 x10'3 /uL 12/05 6:35 AM CDT [facility] Not Available Not Available 04/15/2024 04:24:11 12/06/19 24 12/06/2023 CBC W Auto Diffe renti al panel - Blood interpretati on and review of laboratory results Abnorm al Not Available Not Available 04:24:11 12/06/19 24 12/06/2023 Lipid 1996 panel - Serum or Plasm a cholesterol [mass/volume ] in serum or plasma 238 text: <200 mg/dL high DERRICK STERO L 238 (H) <200 MG/DL 12/05 6:30 AM CDT [facility] Not Available Not Available 04/15/2024 04:24:11 12/06/19 24 12/06/2023 Lipid 1996 panel - Serum or Plasm a triglyceride [mass/volume ] in serum or plasma 69 text: <150 mg/dL TRIGL YCERI JOJO 69 <150 MG/DL 12/05 6:30 AM T [facility] Not Available Not Available 04/15/2024 04:24:11 12/06/1912/06/2023 Lipid 1996 panel - Serum or Plasm a cholesterol in HDL [mass/volume ] in serum or plasma 72 text: >40.0 mg/dL HDL 72 >40.0 MG/DL 12/05 6:30 AM T [facility] Not Available Not Available 04/15/2024 04:24:11 12/06/1912/06/2023 Lipid 1996 panel - Serum or Plasm a cholesterol in LDL [mass/volume ] in serum or plasma by calculation 152 text: <100 mg/dL high LDL (CALC ULATE D) 152 (H) <100 MG/DL 12/05 6:30 AM [facility] Not Available Not Available 04/15/2024 04:24:11 12/06/1912/06/2023 Lipid 1996 panel - Serum or Plasm a cholesterol non HDL [mass/volume ] in serum or plasma 166 text: <130 mg/dL high NON HDL DERRICK STERO L 166 (H) <130 MG/DL 12/05 6:30 AM [facility] Not Available Not Available 04/15/2024 04:24:11 12/06/1912/06/2023 Lipid 1996 panel - Serum or Plasm a cholesterol. total/choles terol in HDL [mass ratio] in serum or plasma 3.3 low: 0high: 4.5 CHOL/ HDL RATIO 3.3 0.0 - 4.5 12/05 6:30 AM T [facility] Not Available Not Available 04/15/2024 04:24:11 12/06/1912/06/2023 Lipid 1996 panel - Serum or Plasm a cholesterol in VLDL [mass/volume ] in serum or plasma by calculation 14 text: 5 - 55 mg/dL VLDL CALCU LATIO N 14 5 - 55 MG/DL 12/05 6:30 AM CDT [facility] Not Available Not Available 04/15/2024 04:24:11 12/06/19 24 12/06/2023 Lipid 1996 panel - Serum or Plasm a service comment LIPID INTER PRETA TION 12/05 6:30 AM CDT [facility] Not Available Not Available 04/15/2024 04:24:11 12/06/19 24 12/06/2023 Lipid 1996 panel - Serum or Plasm a interpretati on and review of laboratory results Abnorm al Not Available Not Available 04:24:11 12/06/1912/06/2023 Thyro tropi n [Unit s/vol ume] in Serum or Plasm a thyrotropin [units/volum e] in serum or plasma 0.398 text: 0.358 - 3.74 uIU/mL TSH 0.398 0.358 - 3.74 uIU/M L 12/05 6:54 AM CDT [facility] Not Available Not Available 04/15/2024 04:24:11 12/06/19 24 12/05/2023 Urina lysis dipst ick W Refle x Micro scopi c panel - Urine collection method - specimen URINE CLEAN CATCH Speci men Type URINE CLEAN CATCH 12/04 7:04 PM CDT [facility] Not Available Not Available 04/15/2024 04:24:10 12/06/19 24 12/05/2023 Urina lysis dipst ick W Refle x Micro scopi c panel - Urine color of urine YELLOW COLOR (U) YELLO W 12/04 7:22 PM CDT [facility] Not Available Not Available 04/15/2024 04:24:10 12/06/19 24 12/05/2023 Urina lysis dipst ick W Refle x Micro scopi c panel - Urine clarity of urine CLEAR TRANS PAREN CY CLEAR 12/04 7:22 PM CDT [facility] Not Available Not Available 04/15/2024 04:24:10 12/06/19 24 12/05/2023 Urina lysis dipst ick W Refle x Micro scopi c panel - Urine specific gravity of urine 1.025 low: 1.001h igh: 1.03 SPECI FIC GRAVI TY (U) 1.025 1.001 - 1.030 12/04 7:22 PM CDT [facility] Not Available Not Available 04/15/2024 04:24:10 12/06/19 24 12/05/2023 Urina lysis dipst ick W Refle x Micro scopi c panel - Urine pH of urine 6 low: 5high: 9 U PH 6.0 5.0 - 9.0 12/04 7:22 PM CDT [facility] Not Available Not Available 04/15/2024 04:24:10 12/06/19 24 12/05/2023 Urina lysis dipst ick W Refle x Micro scopi c panel - Urine leukocytes [#/volume] in urine by test strip NEGATI VE text: negati ve LEUKO CYTES (U) NEGAT GENE NEGAT GENE 12/04 7:22 PM T [facility] Not Available Not Available 04/15/2024 04:24:10 12/06/19 24 12/05/2023 Urina lysis dipst ick W Refle x Micro scopi c panel - Urine nitrite [presence] in urine NEGATI VE text: negati ve NITRI JOHN NEGAT GENE NEGAT GENE 12/04 7:22 PM CDT [facility] Not Available Not Available 04/15/2024 04:24:10 12/06/19 24 12/05/2023 Urina lysis dipst ick W Refle x Micro scopi c panel - Urine protein [mass/volume ] in urine by test strip 30 text: <30 mg/dL high PROTE IN RANDO M (U) 30 (H) <30 MG/DL 12/04 7:22 PM CDT [facility] Not Available Not Available 04/15/2024 04:24:10 12/06/19 24 12/05/2023 Urina lysis dipst ick W Refle x Micro scopi c panel - Urine glucose [mass/volume ] in urine NORMAL text: normal mg/dL GLUCO SE (U) ROSEMARY L ROSEMARY L MG/DL 12/04 7:22 PM CDT [facility] Not Available Not Available 04/15/2024 04:24:10 12/06/19 24 12/05/2023 Urina lysis dipst ick W Refle x Micro scopi c panel - Urine ketones [mass/volume ] in urine by test strip NEGATI VE text: negati ve mg/dL KETON ES MG/DL (U) NEGAT GENE NEGAT GENE MG/DL 12/04 7:22 PM CDT [facility] Not Available Not Available 04/15/2024 04:24:10 12/06/19 24 12/05/2023 Urina lysis dipst ick W Refle x Micro scopi c panel - Urine urobilinogen [units/volum e] in urine by test strip 2 text: normal mg/dL abnormal UROBI LINOG EN 2.0 (A) ROSEMARY L MG/DL 12/04 7:22 PM CDT [facility] Not Available Not Available 04/15/2024 04:24:10 12/06/19 24 12/05/2023 Urina lysis dipst ick W Refle x Micro scopi c panel - Urine bilirubin.to luis [mass/volume ] in urine NEGATI VE text: negati ve mg/dL BILIR UBIN (U) NEGAT GENE NEGAT GENE MG/DL 12/04 7:22 PM CDT [facility] Not Available Not Available 04/15/2024 04:24:10 12/06/19 24 12/05/2023 Urina lysis dipst ick W Refle x Micro scopi c panel - Urine erythrocytes [#/volume] in urine by automated test strip 2+ text: negati ve abnormal BLOOD (U) 2+ (A) NEGAT GENE 12/04 7:22 PM CDT [facility] Not Available Not Available 04/15/2024 04:24:10 12/06/19 24 12/05/2023 Urina lysis dipst ick W Refle x Micro scopi c panel - Urine mucus [#/area] in urine sediment by microscopy low power field MANY text: /lpf MUCUS MANY /LPF 12/04 7:22 PM CDT [facility] Not Available Not Available 04/15/2024 04:24:10 12/06/19 24 12/05/2023 Urina lysis dipst ick W Refle x Micro scopi c panel - Urine leukocytes [#/area] in urine sediment by microscopy high power field 3 text: <6 /hpf WBC/H PF 3 <6 /HPF 12/04 7:22 PM CDT [facility] Not Available Not Available 04/15/2024 04:24:10 12/06/19 24 12/05/2023 Urina lysis dipst ick W Refle x Micro scopi c panel - Urine erythrocytes [#/area] in urine sediment by microscopy high power field 4 text: <6 /hpf RBC/H PF 4 <6 /HPF 12/04 7:22 PM CDT [facility] Not Available Not Available 04/15/2024 04:24:10 12/06/19 24 12/05/2023 Urina lysis dipst ick W Refle x Micro scopi c panel - Urine epithelial cells.squamo us [#/area] in urine sediment by microscopy high power field RARE text: /hpf SQUAM OUS EPITH ELIAL S RARE /HPF 12/04 7:22 PM CDT [facility] Not Available Not Available 04/15/2024 04:24:10 12/06/19 24 12/05/2023 Urina lysis dipst ick W Refle x Micro scopi c panel - Urine interpretati on and review of laboratory results Abnorm al Not Available Not Available 04:24:10 12/25/1912/26/2023 ALBUM IN/CR EATIN INE RATIO ,URIN E creatinine, urine 364.1 mg/dL notest ab. Not Available [facility] ([facility]) [address] [place], [address], 12/26/2023 06:22:05 12/25/1912/26/2023 ALBUM IN/CR EATIN INE RATIO ,URIN E albumin, urine 49.6 ug/mL notest ab. Not Available [facility] ([facility]) [address] [place], [address], 12/26/2023 06:22:05 12/25/1912/26/2023 ALBUM IN/CR EATIN INE RATIO ,URIN E alb/creat ratio 14 mg/g_ creat 0-29 Rosemary l: 0 - 29 Moder ately incre ased: 30 - 300 Sever tricia incre ased: >300 Not Available [facility] ([facility]) [address] [place], [address], 12/26/2023 06:22:05 12/25/19 24 12/26/2023 TSH+F REE T4 TSH 0.714 uIU/m L 0.450- 4.500 Not Available [facility] ([facility]) [address] [place], [address], 12/26/2023 06:22:05 12/25/1912/26/2023 TSH+F REE T4 T4,free(dire ct) 1.07 NG/dL 0.82-1 .77 Not Available [facility] ([facility]) [address] [place], [address], 12/26/2023 06:22:05 12/25/19 24 12/26/2023 LIPID PANEL cholesterol, total 225 mg/dL 100-19 9 above high normal Not Available [facility] ([facility]) [address] [place], [address], 12/26/2023 06:22:06 12/25/1912/26/2023 LIPID PANEL triglyceride s 144 mg/dL 0-149 Not Available [facility] ([facility]) [address] [place], [address], 12/26/2023 06:22:06 12/25/19 24 12/26/2023 LIPID PANEL HDL cholesterol 55 mg/dL >39 Not Available [facility] ([facility]) [address] [place], [address], 12/26/2023 06:22:06 12/25/1912/26/2023 LIPID PANEL VLDL cholesterol elizabeth 26 mg/dL 5-40 Not Available [facility] ([facility]) [address] [place], [address], 12/26/2023 06:22:06 12/25/1912/26/2023 LIPID PANEL LDL chol calc ([facility]) 144 mg/dL 0-99 above high normal Not Available [facility] ([facility]) [address] [place], [address], 12/26/2023 06:22:06 12/25/19 24 12/25/2023 COMP. METAB OLIC PANEL (14) glucose 110 mg/dL 70-99 above high normal Not Available [facility] ([facility]) [address] [place], [address], 12/26/2023 06:22:07 12/25/19 24 12/25/2023 COMP. METAB OLIC PANEL (14) BUN 6 mg/dL 6-20 Not Available [facility] ([facility]) [address] [place], [address], 12/26/2023 06:22:07 12/25/19 24 12/25/2023 COMP. METAB OLIC PANEL (14) creatinine 0.90 mg/dL 0.57-1 .00 Not Available [facility] ([facility]) [address] [facility] [place], [address], 12/26/2023 06:22:07 12/25/19 24 12/25/2023 COMP. METAB OLIC PANEL (14) eGFR 84 mL/mi n/1.7 3 >59 Not Available [facility] ([facility]) [address] [facility] [place], [address], 12/26/2023 06:22:07 12/25/19 24 12/25/2023 COMP. METAB OLIC PANEL (14) BUN/creatini ne ratio 7 9-23 below low normal Not Available [facility] ([facility]) [address] [facility] [place], [address], 12/26/2023 06:22:07 12/25/19 24 12/25/2023 COMP. METAB OLIC PANEL (14) sodium 136 mmol/ L 134-14 4 Not Available [facility] ([facility]) [address] [facility] [place], [address], 12/26/2023 06:22:07 12/25/19 24 12/25/2023 COMP. METAB OLIC PANEL (14) potassium 4.2 mmol/ L 3.5-5. 2 Not Available [facility] ([facility]) [address] [place], [address], 12/26/2023 06:22:07 12/25/19 24 12/25/2023 COMP. METAB OLIC PANEL (14) chloride 103 mmol/ L 96-106 Not Available [facility] ([facility]) [address] [place], [address], 12/26/2023 06:22:07 12/25/19 24 12/25/2023 COMP. METAB OLIC PANEL (14) carbon dioxide, total 20 mmol/ L 20-29 Not Available [facility] ([facility]) [address] [place], [address], 12/26/2023 06:22:07 12/25/19 24 12/25/2023 COMP. METAB OLIC PANEL (14) calcium 8.9 mg/dL 8.7-10 .2 Not Available [facility] ([facility]) [address] [facility], [place], [address], 12/26/2023 06:22:07 12/25/19 24 12/25/2023 COMP. METAB OLIC PANEL (14) protein, total 7.5 g/dL 6.0-8. 5 Not Available [facility] ([facility]) [address] [facility] [place], [address], 12/26/2023 06:22:07 12/25/19 24 12/25/2023 COMP. METAB OLIC PANEL (14) albumin 4.3 g/dL 3.9-4. 9 Not Available [facility] ([facility]) [address] [facility], [place], [address], 12/26/2023 06:22:07 12/25/1912/25/2023 COMP. METAB OLIC PANEL (14) globulin, total 3.2 g/dL 1.5-4. 5 Not Available [facility] ([facility]) [address] [facility], [place], [address], 12/26/2023 06:22:07 12/25/19 24 12/25/2023 COMP. METAB OLIC PANEL (14) bilirubin, total 0.4 mg/dL 0.0-1. 2 Not Available [facility] ([facility]) [address] [facility] [place], [address], 12/26/2023 06:22:07 12/25/19 24 12/25/2023 COMP. METAB OLIC PANEL (14) alkaline phosphatase 76 IU/L 44-121 Not Available [facility] ([facility]) [address] [facility] [place], [address], 12/26/2023 06:22:07 12/25/19 24 12/25/2023 COMP. METAB OLIC PANEL (14) AST (SGOT) 19 IU/L 0-40 Not Available [facility] ([facility]) [address] [facility], [place], [address], 12/26/2023 06:22:07 12/25/19 24 12/25/2023 COMP. METAB OLIC PANEL (14) ALT (SGPT) 19 IU/L 0-32 Not Available [facility] ([facility]) [address] [facility], [place], [address], 12/26/2023 06:22:07 12/25/1912/25/2023 HEMOG LOBIN A1C hemoglobin A1C 6.3 % 4.8-5. 6 above high normal Predi abete s: 5.7 - 6.4 Diabe john: >6.4 Glyce seth contr ol for adult s with diabe john: <7.0 Not Available [facility] ([facility]) [address] [facility], [place], [address], 12/26/2023 06:22:09 12/25/1912/25/2023 CBC WITH DIFFE RENTI AL/PL ATELE T WBC 6.6 x10e3 /uL 3.4-10 .8 Not Available [facility] ([facility]) [address] [place], [address], 12/26/2023 06:22:10 12/25/19 24 12/25/2023 CBC WITH DIFFE RENTI AL/PL ATELE T RBC 4.79 x10e6 /uL 3.77-5 .28 Not Available [facility] ([facility]) [address] [place], [address], 12/26/2023 06:22:10 12/25/19 24 12/25/2023 CBC WITH DIFFE RENTI AL/PL ATELE T hemoglobin 14.5 g/dL 11.1-1 5.9 Not Available [facility] ([facility]) [address] [facility], [place], [address], 12/26/2023 06:22:10 12/25/19 24 12/25/2023 CBC WITH DIFFE RENTI AL/PL ATELE T hematocrit 44.3 % 34.0-4 6.6 Not Available [facility] ([facility]) [address] [facility], [place], [address], 12/26/2023 06:22:10 12/25/19 24 12/25/2023 CBC WITH DIFFE RENTI AL/PL ATELE T MCV 93 fL 79-97 Not Available [facility] ([facility]) [address] [facility], [place], [address], 12/26/2023 06:22:10 12/25/19 24 12/25/2023 CBC WITH DIFFE RENTI AL/PL ATELE T MCH 30.3 pg 26.6-3 3.0 Not Available [facility] ([facility]) [address] [facility], [place], [address], 12/26/2023 06:22:10 12/25/19 24 12/25/2023 CBC WITH DIFFE RENTI AL/PL ATELE T MCHC 32.7 g/dL 31.5-3 5.7 Not Available [facility] ([facility]) [address] [facility], [place], [address], 12/26/2023 06:22:10 12/25/19 24 12/25/2023 CBC WITH DIFFE RENTI AL/PL ATELE T RDW 13.2 % 11.7-1 5.4 Not Available [facility] ([facility]) [address] [facility], [place], [address], 12/26/2023 06:22:10 12/25/19 24 12/25/2023 CBC WITH DIFFE RENTI AL/PL ATELE T platelets 191 x10e3 /uL 150-45 0 Not Available [facility] ([facility]) [address] [facility], [place], [address], 12/26/2023 06:22:10 12/25/19 24 12/25/2023 CBC WITH DIFFE RENTI AL/PL ATELE T neutrophils 54 % notest ab. Not Available [facility] ([facility]) [address] [facility], [place], [address], 12/26/2023 06:22:10 12/25/19 24 12/25/2023 CBC WITH DIFFE RENTI AL/PL ATELE T lymphs 32 % notest ab. Not Available [facility] ([facility]) [address] [facility], [place], [address], 12/26/2023 06:22:10 12/25/19 24 12/25/2023 CBC WITH DIFFE RENTI AL/PL ATELE T monocytes 11 % notest ab. Not Available [facility] ([facility]) [address] [facility], [place], [address], 12/26/2023 06:22:10 12/25/19 24 12/25/2023 CBC WITH DIFFE RENTI AL/PL ATELE T eos 2 % notest ab. Not Available [facility] ([facility]) [address] [facility], [place], [address], 12/26/2023 06:22:10 12/25/19 24 12/25/2023 CBC WITH DIFFE RENTI AL/PL ATELE T basos 1 % notest ab. Not Available [facility] ([facility]) [address] [facility], [place], [address], 12/26/2023 06:22:10 12/25/19 24 12/25/2023 CBC WITH DIFFE RENTI AL/PL ATELE T neutrophils (absolute) 3.6 x10e3 /uL 1.4-7. 0 Not Available [facility] ([facility]) [address] [facility], [place], [address], 12/26/2023 06:22:10 12/25/19 24 12/25/2023 CBC WITH DIFFE RENTI AL/PL ATELE T lymphs (absolute) 2.1 x10e3 /uL 0.7-3. 1 Not Available [facility] ([facility]) [address] [facility], [place], [address], 12/26/2023 06:22:10 12/25/19 24 12/25/2023 CBC WITH DIFFE RENTI AL/PL ATELE T monocytes(ab solute) 0.8 x10e3 /uL 0.1-0. 9 Not Available [facility] ([facility]) [address] [place], [address], 12/26/2023 06:22:10 12/25/19 24 12/25/2023 CBC WITH DIFFE RENTI AL/PL ATELE T eos (absolute) 0.1 x10e3 /uL 0.0-0. 4 Not Available [facility] ([facility]) [address] [facility], [place], [address], 12/26/2023 06:22:10 12/25/19 24 12/25/2023 CBC WITH DIFFE RENTI AL/PL ATELE T baso (absolute) 0.0 x10e3 /uL 0.0-0. 2 Not Available [facility] ([facility]) [address] [facility], [place], [address], 12/26/2023 06:22:10 12/25/19 24 12/25/2023 CBC WITH DIFFE RENTI AL/PL ATELE T immature granulocytes 0 % notest ab. Not Available [facility] ([facility]) [address] [place], [address], 12/26/2023 06:22:10 12/25/19 24 12/25/2023 CBC WITH DIFFE RENTI AL/PL ATELE T immature grans (abs) 0.0 x10e3 /uL 0.0-0. 1 Not Available [facility] ([facility]) [address] [facility], [place], [address], 12/26/2023 06:22:10 12/25/19 24 12/26/2023 TRIIO DOTHY SARI E (T3), FREE triiodothyro nine (T3), free 2.7 pg/mL 2.0-4. 4 Not Available [facility] ([facility]) [address] [facility], [place], [address], 12/26/2023 06:22:11 12/25/19 24 12/26/2023 HIV AB/P2 4 AG WITH REFLE X HIV Ab/P24 Ag screen NON REACTI VE nonrea ctive HIV-1 /HIV- 2 antib odies and HIV-1 p24 antig en were NOT detec compa. There is no labor atory evide nce of HIV infec tion. HIV Negat gene Not Available [facility] ([facility]) [address] [facility], [place], [address], 12/26/2023 06:22:12 05/29/1905/28/2024 HbA1c (hemo globi n A1c), blood HbA1c 6.1 Not Available In-Office Order Internal Use Only DO Not Attach Compendium DO Not Attach Compendium, Do Not Delete/merge, [id number] 05/28/2024 17:48:26 12/14/19 24 12/14/2023 [place], kidne y No observ ation record ed. [facility] [address] [place], [address], 01/03/2024 12:50:08 12/14/1912/14/2023 [place], thyro id No observ ation record ed. [facility] [address] [place], [address], 01/01/2024 15:34:25 Result Notes None recorded. Problems Name Problem SNOMED Code Status Onset Date Resolution Date Notes Provider Name and Address Organization Details Recorded Time Bacterial vaginosis 345890222 Active Desiree [place], [place] [facility] 2 15:09:03 Bacterial vaginosis 816410347 Completed Desiree [place] [facility] 2 15:09:03 Candidiasis of vagina 43325192 Active Desiree [place] [facility] 2 15:09:03 Candidiasis of vagina 78047677 Completed Desiree [place] [facility] 2 15:09:03 state 86586712 Completed 06/26/2018 Desiree [place] [facility] 2 15:09:03 state 52269699 Completed Desiree [place] [facility] 2 15:09:03 48929530 Completed 201806/26/2018 Desiree [place] [facility] 2 15:09:03 Deliveries by Active 2018 Desiree [place] [facility] 15:09:03 Deliveries by [id number] Completed 2018 Desiree [place] [facility] 15:09:03 Hyperemesis gravidarum 90290846 Completed 2018 Desiree [place] [facility] 15:09:03 Hyperemesis gravidarum 11187861 Active 2018 Desiree [place] [facility] 2 15:09:03 Gestational proteinuria 13611489 Completed 2018 Des[place]e [place] [facility] 2 15:09:03 Gestational proteinuria 94953685 Active 2018 Des[place]e [place] [facility] 15:09:03 Small for gestational age fetus 802117705 Completed 2018 Des[place] [facility] 15:09:03 Small for gestational age fetus 837505757 Active 2018 Des[place]e [place] [facility] 15:09:03 Headache 85250721 Active 2021 Desiree [place] [facility] 15:09:03 Dizziness 915409096 Active 2021 Desiree [place] [facility] 2 15:09:03 Mixed anxiety and depressive disorder 387273076 Active 2024 FERMÍN ARCHIBALD PA-C Attn: Rodolfo moura,[address] [facility], [place], [address], [place] [facility] 5 16:30:04 Essential hypertensio n 77488524 Active 2024 FERMÍN ARCHIBALD PA-C Attn: Rodolfo g,[address] [facility], [place], [address], [place] [facility] 5 17:46:44 Notes:Some problems listed i n Documents: #[id number], #[id number], #[id number] could not be added to this patient's chart. Please review these documents and add these problems to the patient's chart manually as needed. Problem Notes None recorded. Procedures Surgical History Date Name Laterality Status Provider Name and Address Organization Details Recorded Time 1 Control Implant Removal completed WILMAR SAM Attn: Accounting,[address] [facility], [place], [address], [place] [facility] 12/02/2020 15:37:31 9 Control Implant Insertion completed Yuniel Shelton [place] [facility] 02/20/2019 15:07:17 9 SECTION (SURG) [place] Desiree Madison [place] [facility] 09/26/2021 15:09:08 9 Date of Last Pap Smear completed Des[place]e [place] [facility] 09/26/2021 15:09:03 6 Caesarean Section completed Desiree [place] [facility] 09/26/2021 15:09:09 9 Caesarean Section completed Desiree [place] [facility] 09/26/2021 15:09:09 Imaging Results None recorded. Procedure Notes None recorded. Medical Equipment None Reported. Allergies No known drug allergies Medications Name Sig Start Date Stop Date Status Note LastModified by Organization Details LastModified Time metronidaz ole vaginal 0.75 % gel 04/23 completed Not Available Not Available Not Available sertraline hcl 25 mg tabs 04/23 completed Not Available Not Available Not Available terconazol e 0.8 % crea 04/23 completed Not Available Not Available Not Available nitrofuran toin monohydrat e 100 mg caps 04/23 completed Not Available Not Available Not Available oxycodone/ acetaminop hen 5-325 mg tabs 04/23 completed Not Available Not Available Not Available nitrofuran toin monohydrat e/macrocry stals 100 mg caps 06/26 completed Not Available Not Available Not Available ondansetro n hydrochlor franklyn 4 mg tabs 04/23 completed Not Available Not Available Not Available ibuprofen 800 mg tabs 02/08 completed Not Available Not Available Not Available metronidaz ole 500 mg tabs 04/23 completed Not Available Not Available Not Available dicyclomin e hydrochlor franklyn 20 mg tabs 04/23 completed Not Available Not Available Not Available labetalol hydrochlor franklyn 100 mg tabs 04/23 completed Not Available Not Available Not Available hydrocodon e/acetamin ophen 5-325 mgtabs 04/23 completed Not Available Not Available Not Available losartan 50 mg tablet TAKE 1 TABLET BY MOUTH ONCE DAILY 05/28 completed Not Available Not Available Not Available Keppra 500 mg tablet Take 1 tablet every day by oral route as directed for 30 days. 11/17 completed Not Available Not Available Not Available clindamyci n HCl 300 mg capsule TAKE 1 CAPSULE BY MOUTH EVERY 6 HOURS UNTIL GONE 02/08 completed Not Available Not Available Not Available miconazole nitrate 2 % topical cream APPLY TO THE AFFECTED AREA(S) TWICE DAILY IN THE MORNING & EVERY NIGHT AT BEDTIME 11/25 completed Not Available Not Available Not Available ibuprofen 800 mg tablet Take 1 tablet every 8 hours by oral route as needed. 11/25 completed Not Available Not Available Not Available fluconazol e 150 mg tablet Take 1 tablet by oral route. 06/26 completed Not Available Not Available Not Available hydrocodon e 5 mg-acetami nophen 325 mg tablet TAKE 1 TO 2 TABLETS BY MOUTH EVERY 4 TO 6 HOURS NEEDED FOR PAIN (MAX 8 PER DAY) 11/25 completed Not Available Not Available Not Available metronidaz ole 0.75 % (37.5 mg/5 gram) vaginal gel Insert 1 applicat orful every day by vaginal route at bedtime for 5 days. 08/01 completed Not Available Not Available Not Available ondansetro n HCl 4 mg tablet Take 1 tablet every 8 hours by oral route as needed. 02/20 completed Not Available Not Available Not Available prednisone 20 mg tablet 11/25 completed Not Available Not Available Not Available terconazol e 0.8 % vaginal cream Insert 1 applicat orful every day by vaginal route for 3 days. 02/20 completed Not Available Not Available Not Available metronidaz ole 500 mg tablet TAKE ONE TABLET BY MOUTH TWICE DAILY IN THE MORNING & EVERY NIGHT AT BEDTIME 11/25 completed Not Available Not Available Not Available amlodipine 5 mg tablet 12/06 completed taking 10mg Not Available Not Available Not Available acetaminop hen 500 mg tablet Take 2 tablets every 6 hours by oral route as needed for 30 days, for headache s. 05/28 completed Not Available Not Available Not Available Vitamin tablet Take 1 tablet every day by oral route as directed for 90 days. 07/12 completed Not Available Not Available Not Available oxycodone- acetaminop hen 5 mg-325 mg tablet 02/20 completed Not Available Not Available Not Available amoxicilli n 875 mg tablet TAKE 1 TABLET BY MOUTH TWICE DAILY UNTIL GONE 12/02 completed Not Available Not Available Not Available famotidine 20 mg tablet Take 1 tablet twice a day by oral route. 02/20 completed Not Available Not Available Not Available methocarba mol 750 mg tablet 04/15 completed Not Available Not Available Not Available dicyclomin e 20 mg tablet 06/26 completed Not Available Not Available Not Available amlodipine 10 mg tablet TAKE 1 TABLET BY MOUTH ONCE DAILY active Not Available Not Available No t Available ferrous sulfate 325 mg (65 mg iron) tablet 02/20 completed Not Available Not Available Not Available losartan 25 mg tablet Take 1 tablet by mouth once daily for blood pressure 05/28 completed Not Available Not Available Not Available sertraline 25 mg tablet Take 1 tablet every day by oral route as directed for 30 days. 04/15 completed Not Available Not Available Not Available hydroxyzin e HCl 25 mg tablet TAKE 1 TABLET BY MOUTH TWICE DAILY active Not Available Not Available No t Available amoxicilli n 400 mg/5 mL oral suspension TAKE 6.3ML BY MOUTH TWICE DAILY FOR 10 DAYS. DISCARD REMAININ G AMOUNT. 11/17 completed Not Available Not Available Not Available polyethyle ne glycol 3350 17 gram/dose oral powder MIX 17 GRAMS OF POWDER IN 8 OUNCES OF LIQUID AND DRINK ONCE DAILY active Not Available Not Available No t Available labetalol 100 mg tablet 02/20 completed Not Available Not Available Not Available losartan 100 mg tablet TAKE 1 TABLET BY MOUTH ONCE DAILY FOR 30 DAYS active Not Available Not Available No t Available metformin ER 500 mg tablet,ext ended release 24 hr TAKE 1 TABLET BY MOUTH ONCE DAILY active Not Available Not Available No t Available sertraline 50 mg tablet TAKE 1 TABLET BY MOUTH ONCE DAILY active Not Available Not Available No t Available Reglan 5 mg tablet Take 1 tablet 4 times a day by oral route before meals. 02/20 completed Not Available Not Available Not Available nitrofuran toin monohydrat e/macrocry stals 100 mg capsule 06/26 completed Not Available Not Available Not Available Calcium 600 + D(3) 600 mg-10 mcg (400 unit) tablet Take 1 tablet twice a day by oral route. 02/08 completed Not Available Not Available Not Available Calcium with Vitamin D3 600 mg (carbonate )-10 mcg (400 unit) capsule Take 1 capsule twice a day by oral route. 07/12 completed Not Available Not Available Not Available tranexamic acid 650 mg tablet TAKE 2 TABLETS BY MOUTH THREE TIMES DAILY FOR 5 DAYS 02/08 completed Not Available Not Available Not Available ferrous gluconate 236 mg (27 mg iron) tablet Take 1 tablet twice a day by oral route. 02/08 completed Not Available Not Available Not Available Nexplanon 68 mg subdermal implant Inject 1 implant by subcutan eous route. 12/02 completed Not Available Not Available Not Available Classic 28 mg iron-800 mcg tablet Take 1 tablet every day by oral route. 04/23 completed Not Available Not Available Not Available Xulane 150 mcg-35 mcg/24 hr transderma l patch APPLY 1 PATCH TOPICALL Y ONCE A WEEK 09/23 completed Not Available Not Available Not Available Annovera 0.15 mg-0.013 mg/24 hr vaginal ring Insert one ring intravag inally every 12 months 11/17 completed Not Available Not Available Not Available Vitals Date Recorded Body height Body mass index (BMI) Body weight Oxygen saturation Oxygen saturation in Arterial blood by Pulse oximetry Heart rate Systolic And Diastolic Provider Name and Address Organization Details Last Updated DateTime 5 162.56 cm 39.8 kg/m2 803224. 79 g 98 % 98 % 66 /min 130/88 mm[Hg] Zenobia Wright MA [facility] 5 16:02:19 Date Recorded Body height Body mass index (BMI) Body weight Body temperature Oxygen saturation Oxygen saturation in Arterial blood by Pulse oximetry Heart rate Systolic And Diastolic Provider Name and Address Organization Details Last Updated DateTime 5 162.56 cm 41.9 kg/m2 413917. 59 g 97.9 [degF] 98 % 98 % 76 /min 128/82 mm[Hg] Pao Almanzar [facility] 5 16:50:28 Date Recorded Systolic And Diastolic Provider Name and Address Organization Details Last Updated DateTime 11/26/2023 138/94 mm[Hg] SURAJ CHANG Attn: Accounting,[address] [place], [address], [facility] 11/26/2023 10:27:44 Date Recorded Body height Body mass index (BMI) Body weight Oxygen saturation Oxygen saturation in Arterial blood by Pulse oximetry Heart rate Systolic And Diastolic Provider Name and Address Organization Details Last Updated DateTime 4 162.56 cm 40 kg/m2 304529. 3 g 96 % 96 % 80 /min 148/100 mm[Hg] Zenobia Wright [facility] 4 09:58:02 Date Recorded Body height Body mass index (BMI) Body weight Systolic And Diastolic Provider Name and Address Organization Details Last Updated DateTime 12/12/2023 162.56 cm 39.1 kg/m2 361105.34 g 134/82 mm[Hg] Zenobia Larkin La Cruz ALMAZ [facility] 12/12/2023 10:52:11 Date Recorded Body height Body mass index (BMI) Body weight Body temperature Oxygen saturation Oxygen saturation in Arterial blood by Pulse oximetry Heart rate Systolic And Diastolic Provider Name and Address Organization Details Last Updated DateTime 162.56 cm 38.8 kg/m2 178413. 28 g 97.6 [degF] 98 % 98 % 78 /min 132/80 mm[Hg] EMMY Enamorado [facility] 4 16:34:39 Social History Question Answer Notes LastModified by Organizat ion Details LastModified Time Tobacco Smoking Status Former Smoker Zenobia Wright MA null, [facility] 11/26/2023 09:56:33 Do You Have An Advance Directive? No Information not available 12/09/2014 If You Are , What Was Your Level Of Alcohol Consumption Prior To ? None Information not available 12/09/2014 Is Anesthesia Consult Planned? No Information not available 12/09/2014 Plan Yes Repeat Information not available 11/19/2018 Is Blood Transfusion Acceptable In An Emergency? Yes Information not available 12/09/2014 What Is Your Level Of Caffeine Consumption? Occasional Information not available 12/09/2014 Live With Cats/exposure To Cat Litter No Information not available 12/09/2014 How Much Tobacco Do You Chew? None Information not available 12/09/2014 What Type Of Diet Are You Following? REGULAR Information not available 12/09/2014 Which Illicit Or Recreational Drugs Have You Used? Abril [email or web address] Information not available 07/12/2018 Education 11 Information no t available 12/09/2014 Have There Been Any Changes To Your Family Or Social Situation? No Information not available 12/09/2014 Frequent Air Travel No Information not available 12/09/2014 Illicit Drugs Pre- Denies Pt States No Illegal Drugs [email or web address] Information not available 07/12/2018 How Many Years Have You Used Illicit Or Recreational Drugs? 0 Information not available 11/19/2018 Live Alone Or With Others? With Others And Children Information not available 07/12/2018 Marital Status Informatio n not available 12/09/2014 What Was The Date Of Your Most Recent Tobacco Screening? 05/28/2024 [email or web address] Information not available 05/28/2024 How Many Children Do You Have? 5 Information not available 07/12/2018 Performs Monthly Self-breast Exam? No Information not available 02/20/2019 Do You Use Protection During Sex? No Information not available 02/20/2019 What Is Your Relationship Status? Information not available 08/11/2020 Seat Belts Used Routinely Yes Information not available 12/09/2014 Are You Sexually Active? No Information not available 08/11/2020 Do You Have Smoke And Carbon Monoxide Detectors In Your Home? Yes Information not available 08/11/2020 Are You Passively Exposed To Smoke? No Information not available 12/09/2014 How Much Tobacco Do You Smoke? No Information not available 06/26/2018 Smoking Pre- No Information not available 12/09/2014 General Stress Level Low Information not available 12/09/2014 Do You Use Sunscreen Routinely? No Information not available 12/09/2014 Supplements Vitamins Information not available 12/09/2014 Has Tobacco Cessation Counseling Been Provided? Yes [email or web address] Information not available 11/17/2022 On What Date Was Tobacco Cessation Counseling Provided? 05/28/2024 Information not available 05/28/2024 How Many Years Have You Smoked Tobacco? 0 Information not available 06/26/2018 Sex: Unknown Functional Status Question Answer Note LastModified by Organizat ion Details LastModified Time Do you use any illicit or recreational drugs? No Information not available 08/11/2020 Do you or have you ever used any other forms of tobacco or nicotine? No Information not available 09/23/2021 What is your level of alcohol consumption? None Information not available 09/23/2021 Do you or have you ever used smokeless tobacco? Never used smokeless tobacco Information not available 11/19/2018 Are you currently employed? 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 Never used electronic cigarettes Information not available 11/19/2018 What is your exercise level? Occasional [email or web address] Information not available 07/12/2018 Mental Status None recorded. Family History Relationship Description Onset Age of this Age Resolved Age Notes LastModified by Organization Details LastModified Time Father No current problems or disability [email or web address] Not available 09/26 15:09:03 Mother No current problems or disability [email or web address] Not available 09/26 15:09:03 Medical History Condition Response Coronary Artery Disease N Blood Diseases N Kidney Cyst N Hyperthyroidism N Blood Transfusion N MRSA N Blood disorders N Emphysema N COPD N Blood Clots N Depression N Pneumonia N Peripheral Arterial Disease N Premature N Edema N TIA N Headaches/Migraines N Anxiety Disorder N Obesity N Infertility N Polyps N Acid Reflux (GERD) N Hematuria N Stroke N Neck Injury N Polio N Hospital Admission other than N Neurologic Disorder N Other Sleep Disorders N Rheumatoid Arthritis N Fibromyalgia N Abdominal Aortic Aneurysm Repair N Kidney Disease N Heart Conditions N Heart Disease/Heart Problems N Hospitalizations N Brain Tumors N Acne N Eating Disorder N Skin Problems N Constipation N Meningitis N Tuberculosis N Cerebral Palsy N Myocardial Infarction N Asthma Y Substance Abuse N Peripheral Vascular Disease N Vertigo N Sleep Disorder N Cirrhosis N Pulmonary Embolism N Chicken Pox N [place]omax Use Past or Present N Hematologic Disease N Anxiety/Depression N Thyroid Disease N Colon Cancer N Glaucoma N Lung Disease N Developmental or Behavioral Disorders N Bipolar N Pacemaker N Diverticulitis/Diverticulosis N Anesthesia Complications N Orthopedic Problems N Orthotics N Head Injury/Concussion N Congenital Anomalies N Germain Bite N Chronic Kidney Disease N Endometriosis N Liver Disease N Dialysis N Schizophrenia N Speech Delay N Chronic Obstructive Pulmonary Disease N Parkinson's Disease N Thyroid Problems N GI Problems N Developmental Delay N Anemia N Immune System Disorder N Multiple Sclerosis N Colon Polyps N Heart Attack ([place]) N Diabetes N Cardiomyopathy N Blood Transfusions N Heart Problems/Murmur N Eye Trauma N Congestive Heart Failure (CHF) N Valvular Heart Disease N Hyperlipidemia N Double Vision N Abuse/Domestic Violence N Hepatitis B N Lupus N Epilepsy/Seizures N Reflux/GERD N Aneurysm N Bronchitis N Heart Disease N Hypertension N Pre-Eclampsia N Heart Failure N Other N Gout N High Blood Pressure N Atrial Fibrillation N Kidney Stones N Head Trauma/Injury N Congenital Heart Disease N Spine Problems N Gastrointestinal Disease N Lung Mass N Sinusitis N Obstructive Sleep Apnea N Muscle, Joint, or Bone Problems N Autoimmune disease N Vision or Eye Problems N Arthritis N Blood Clot N Cancer N Seasonal allergies N Leg or Foot Ulcers N Raynaud's Disease N Aortic Aneurysm N Arrhythmia N Headaches N Heart Problems N Ambloypia N Ear or Hearing Problems N Hyperparathyroidism N Migraines N Artificial Joints N Kidney or Bladder Problems N NSAID Use N Encephalitis N PTSD N Ulcers N Prostate Hypertrophy N Bleeding Disorder N AIDS/HIV N Urinary Tract Infection N Back Problems N Allergies N Atrial Flutter N GERD/Reflux N Hepatitis N Autism Spectrum Disorder (ASD) N Breast Cancer N Hernia N Hypothyroidism N Breast Problem N Genitourinary Disease N Deep Vein Thrombosis N Varicose Veins N Cystic Fibrosis N Hearing Loss N Developmental Problems N Carotid Disease N Vitamin D Deficiency N ADHD N Bladder or Kidney Problems N High Cholesterol N [place] N Valvular Abnormalities N Psychiatric/Mental Health Condition N Organ Transplant N Foot Deformity N Allergies/Hayfever N Dyslipidemia N Hyponatremia N Diabetic Eye Disease N Osteoporosis/Osteopenia N Back Pain N Proteinuria N Mental Illness N Neurological Problems N Ovarian Cancer N Bedwetting N Seizures/Epilepsy N Kidney Failure N Ocular trauma N Dementia N Diverticulitis N Sleep Apnea N Mental Problems N Warfarin Management N Osteoporosis N Gynecological History Statement/Question Response Abnormal Pap N Flow Heavy Date of LMP 04/12/2024 On BCP's at Conception? N STIs/STDs N HPV Vaccine N Duration of Flow (days) 4 Age at Menarche 13 Current Control Method None Age at First Child 17 Frequency of Cycle (Q days) 29 Sexually Active? Y Menses Monthly Y Date of Last Pap Smear 06/27/2018 Sexual Problems? N LMP Approximate Desired Control Method Unknown Obstetrics History GPAL:G 7 P 6 0 1 6 Type Value Multiple Births 0 Full Term 6 Induced 0 Spontaneous 1 Premature 0 Living 6 Ectopics 0 Total 7 Immunizations Vaccine Type Date Status Note Provider Nam e and Address Organization Details Recorded Time Hib, unspecified formulation 3 completed Not Available [facility] 2022 01:23:51 MMR 0 completed Not Available [facility] 2022 01:23:51 MMR 1 completed Not Available [facility] 2022 01:23:51 DTP 3 completed Not Available [facility] 2022 01:23:51 DTP 3 completed Not Available [facility] 2022 01:23:51 DTP 9 completed Not Available [facility] 2022 01:23:51 DTP 1 completed Not Available [facility] 2022 01:23:51 OPV, trivalent 0 completed Not Available [facility] 2022 01:23:51 OPV, trivalent 3 completed Not Available [facility] 2022 01:23:51 OPV, trivalent 3 completed Not Available [facility] 2022 01:23:51 OPV, trivalent 9 completed Not Available [facility] 2022 01:23:51 OPV, trivalent 1 completed Not Available [facility] 2022 01:23:51 Influenza, split virus, trivalent, PF 7 completed Not Available [facility] 2022 01:23:51 Td (adult), 2 Lf tetanus toxoid, preservative free, adsorbed 4 completed Not Available [facility] 2022 01:23:51 Hep B, adolescent or pediatric 8 completed Not Available [facility] 2022 01:23:51 Hep B, adolescent or pediatric 8 completed Not Available [facility] 2022 01:23:51 Hep B, adolescent or pediatric 7 completed Not Available [facility] 2022 01:23:51 Tdap 9 completed Not Available [facility] 03/22/2019 02:38:12 Influenza, split virus, quadrivalent, PF 0 completed Karissa De La Vega MA [facility], [place] - [place] 04/25/2019 09:21:24 Past Encounters Encounter ID Performer Location Encounter Start Date Encounter Closed Date Diagnosis/Indication Diagnosis SNOMED-CT Code Diagnosis ICD10 Code Diagnosis Note [id number] Rajat Frank MD [facility] ([facility]) [address] [place] [address] [id number] 0 12/09/2014 11:50:28 12/09/2014 13:36:45 Second trimester [id number] Z3A.25 [id number] Rajat Frank MD [facility] ([facility]) [address] [place] [address] [id number] 0 12/25/2014 09:55:45 12/25/2014 11:39:49 Second trimester [id number] Z3A.25 [id number] Rajat Frank MD [facility] ([employer] [facility]) [address] [place] [address] [id number] 0 03/01/2015 11:10:30 03/01/2015 11:51:50 Third trimester [id number] Rajat Frank MD [facility] ([employer]) [address] [place] [address] [id number] 0 03/09/2015 11:25:23 03/09/2015 13:39:19 Third trimester [id number] Z33.1 [id number] Rajat Frank MD [facility] ([employer]) [address] [place] [address] [id number] 0 03/18/2015 09:55:36 03/18/2015 13:14:17 Third trimester 06624662 Z33.1 03/18/15 Will schedule for repeat at 41 weeks on 03/24/15. [id number] [facility] [address] [place] [address] [id number] 0 04/01/2015 10:22:27 04/01/2015 11:34:56 state 10024408 Z39.2 [id number] Rajat Frank MD [facility] ([employer]) [address] [place] [address] [id number] 0 04/29/2015 10:25:42 04/29/2015 15:26:57 state 79706983 Z39.2 Subcutaneo us contraceptive implant present 631767161 Z30.616 [id number] Yuniel Shelton MD [facility] ([employer]) [address] [place] [address] [id number] 0 06/26/2018 15:41:41 06/26/2018 17:47:45 Routine care 843837901 Z34.91 Bacterial vaginosis 4197 45467 N76.0 Candidiasis of vagina 72 393476 B37.3 Asthma 990008315 J45.90 9 Deliveries by [id number] O82 [id number] [facility] [address] [place] [address] [id number] 0 07/12/2018 12:10:34 07/12/2018 12:34:33 Routine care 653393779 Z34.91 [id number] [facility] [address] [place] [address] [id number] 0 08/01/2018 15:52:10 08/20/2018 10:18:20 Routine care 965000349 Z34.91 Deliveries by [id number] O82 Alpha-feto protein test - 281422454 Z36.1 [id number] [facility] [address] [place] [address] [id number] 0 09/04/2018 12:56:50 09/06/2018 14:19:53 Routine care 513064011 Z34.91 Deliveries by [id number] O82 Generalize d anxiety disorder 02680358 F41.1 [id number] [facility] [address] [place] [address] [id number] 0 10/03/2018 15:52:10 10/04/2018 13:52:02 Routine care [id number] Z34.91 Deliveries by [id number] O82 [id number] Yuniel Shelton MD [facility] ([employer]) [address] [place] [address] [id number] 0 11/19/2018 15:49:44 11/20/2018 14:03:02 Routine care 868127577 Z34.91 Deliveries by [id number] O82 - induced hypertension 20987992 O13.9 Streptococ elizabeth sore throat 60729230 J02.0 Nausea and vomiting 1693 1999 R11.2 [id number] Yuniel Shelton MD [facility] ([employer]) [address] [place] [address] [id number] 0 11/26/2018 12:34:04 2018 15:55:56 Routine care 479476673 Z34.91 screening 2437 65231 Z36.9 [id number] Yuniel Shelton MD [facility] ([employer]) [address] [place] [address] [id number] 0 12/10/2018 11:52:31 12/11/2018 12:14:18 Routine care 698500000 Z34.91 Deliveries by [id number] O82 Vomiting of 90 569619 O21.9 Gestationa l proteinuria 15783795 O12.13 [id number] WILMAR SAM [facility] ([employer]) [address] [place] [address] [id number] 0 12/19/2018 11:57:09 12/23/2018 10:13:18 Routine care 855708688 Z34.83 Deliveries by [id number] O82 Acid reflux 443644204 K2 1.9 Gestationa l proteinuria 73259106 O12.13 24 hour urine wnl. BP stable today. Vomiting of 90 392017 O21.9 [id number] [facility] [address] [place] [address] [id number] 0 01/15/2019 12:50:08 01/15/2019 13:28:07 Routine care 543857183 Z34.91 Deliveries by [id number] O82 - induced hypertension 92938166 O13.9 BP 140/100 in office; sent to labor and delivery with PIH orders; see if patient needs to be delivered sooner than scheduled c/s sunday [id number] Yuniel Shelton MD [facility] ([employer]) [address] [place] [address] [id number] 0 02/20/2019 14:26:21 02/20/2019 15:32:55 Deliveries by [id number] O82 care 00220550 8 Z39.2 Implantati on of subcutaneous contraceptive 544854789 Z30.9 At [facility] risk of sexually transmitted infection 133703357 Z20.2 [id number] [facility] [address] [place] [address] [id number] 0 04/23/2019 10:14:38 04/24/2019 14:09:22 Subcutaneous contraceptive implant palpable 237920048 Z30.46 Family sadaf nning surveillance 710583977 Z30.09 At [facility] risk of sexually transmitted infection 242180905 Z20.2 Administra tion of influenza vaccine 48513361 Z23 Heavy epis ode of vaginal bleeding 947488559 N93.9 Abdominal pain 57432954 R10.9 [id number] WILMAR SAM ([employer]) [address] [place] [address] [id number] 0 02/09/2020 10:22:35 02/10/2020 08:20:48 Venereal disease screening 117006205 Z11.3 Partner tested positive for trichomona s, pt requests full STD/STI testing. Safe sex practices discussed, condoms provided. Urogenital infection by Trichomonas vaginalis 31096324 A59.00 Vaginal irritation and burning x 3-4 days. PE with green frothy discharge. Start Flagyl as prescribed . Advised abstinence until at least 1 week after both partners completed treatment. RTC in 2-3 months for retesting. [id number] WILMAR SAM ([employer]) [address] [place] [address] [id number] 0 08/11/2020 11:06:27 08/28/2020 19:33:24 Surveillance of subcutaneous contraceptive implant 522382030 Z30.46 Nexplanon inserted 2019, pt reports prolonged periods with the implant. Discussed other contracept jaqueline but she would like to keep the implant in for security. Rx trial of temporary Xulane transderma l patch to control bleeding. RTC in 3 months. Adjustment disorder 1722 6007 F43.21 Pt given counseling referral for recent depressed mood secondary to recent separation from . History of sexually transmitted disease 082181767 Z86.19 Positive trich 02/2020. Asymptomat ic. Safe sex practices discussed. Abnormal u terine bleeding 9116428900 9100 N93.9 Nexplanon induced. Check for anemia due to prolonged menses. [id number] WILMAR SAM ([employer]) [address] [place] [address] [id number] 0 12/02/2020 10:23:20 12/03/2020 07:08:47 Removal of subcutaneous contraceptive 264214378 Z30.46 Nexplanon removed from LUE w/o issue as detailed in procedure note. Contracept ion care management 725190068 Z30.9 Discussed different control options with patient such as OCPs, ring, Depo Provera shot, and IUDs. Pt interested in annual vaginal ring. Counseled her on use, SE and RF. RTC in 3 months. Acute stress disorder 67 024079 F43.0 Pt states the police just took her son and she would like referral to . Declines medication s today. Venereal d isease screening 925553283 Z11.3 Pt requests STD/STI testing. Asymptomat ic. Safe sex practices discussed. [id number] MD Tl Julio (Adult Med) [address] [place] [address] [id number] 0 09/23/2021 14:09:09 09/26/2021 09:12:15 Mixed anxiety and depressive disorder 652493196 F41.8 !6 Y/O sone had OD, on medication s, mother od 6 kids, head ache, nauseated, no photosensi tivity,. [id number] MD Tl Julio (Adult Med) [address] [place] [address] [id number] 0 10/07/2021 12:37:17 10/10/2021 10:29:12 Mixed anxiety and depressive disorder 358624164 F41.8 !6 Y/O sone had OD, on medication s, mother of 6 kids, head ache, nauseated, no photosensi tivity,. May return to work as she requested, and F/U with [facility] as scheduled. She agreed. [id number] MD Tl Julio (Adult Med) [address] [place] [address] [id number] 0 10/24/2021 15:48:45 11/02/2021 07:48:12 Chronic headache disorder 726061183 G44.89 Seems controlled symptomes with keppra. No dizzy spell today. Has enough med . [id number] WILMAR SAM (Adult Med) [address] [place] [address] [id number] 0 11/17/2022 14:21:20 12/04/2022 12:01:15 Adult health examination 770886222 Z00.00 37yo F with no significan t medical history presenting as new patient, taiwo drake from Dr. Cummings. Annual labs ordered. A&P as below. Obesity 652344317 E66.9 BMI 39.5. Recommende d daily exercise with a goal of 150 min/week of moderate-s trenuous activity and a balanced diet with an emphasis on fruits, vegetables , whole grains, legumes, lean protein, and mono/polyu nsaturated fats. Elevated blood-pressure reading without diagnosis of hypertension 746107941 R03.0 BP 130s/90s today. Will continue to monitor. Discussed DASH diet, regular exercise, weight reduction, and smoking cessation. Headache 23696340 R51.9 Likely tension headaches. Discussed headache hygiene. Rx for IBU prn. RTC if symptoms do not improve. Smoker 04131196 F17.200 Smokes cigars (Black and Milds). Counseled on smoking cessation. [id number] MD Tl Lorenzana (Adult Med) [address] [place] [address] [id number] 0 11/26/2023 09:34:58 2023 12:30:39 Essential hypertension 37041176 I10 BP today: 148/100 and 138/94 BP Goal: Less than 140/90BP Controlled : noHealthy Weight: 5'4= 110-144 lbsDiscuss ed: Low sodium balanced diet, moderate exercise at least 3-4 times per week for an average of 40 minutes, limiting alcohol to 1 drink per day (F) or 2 drinks per day (M), and smoking cessation if currently smoking. Uncontroll ed Hypertensi on potential risks, heart attack, , stroke, kidney failure etc. Hypertensi on is the silent Killer Take your Hypertensi on medication daily keep appointmen ts stop concentrat ed sugars--fo llow 1500 meal plan exercise 50-60 minutes daily on most days see eye doctor once a year see dentist every 6 months Next Visit: 6week(s)In crease amlodipine to 10mg dailyLabs today- will contact patient with results Left flank pain 93648976 9 R10.9 CVA tenderness to L side on PE todayUA dipUrine Cx sent todayUS kidney- bilateral- r/o hydronephr osis/stone s Mixed anxi ety and depressive disorder 118926736 F41.8 Be physically active. Doing 30 minutes of exercise every day is good for your body and mind. Start slowly if you find it difficult to get started. If you already exercise, continue doing so. Plan something nice for yourself every day. Include activities you have enjoyed in the past. Get enough sleep. Eat a balanced diet. If you are not hungry, eat small snacks instead of large meals. Do not drink alcohol, use illegal drugs, or take medication s that your doctor has not prescribed . They may interfere with your treatment. Spend time with family and friends. It may be helpful to talk openly about your depression with people you trust. Take your medication s exactly as prescribed . Don't make important life decisions while you are depressed. Depression can change the way you think. You will be able to make better decisions when you feel better. Think positively . Challenge negative thoughts with statements like I am hopeful ; Things will get better; and I can ask for the help I need. Write these statements down and read them often, even if you don't believe them yet. Be patient with yourself. It took time for your depression to develop and it will take time for your symptoms to improve. Don't assume too much or be too hard on yourself. Learn everything you can about depression from written and online materials. Check out behavioral health classes to learn more about how to deal with depression . Keep the numbers for these national suicide hotlines: 4-259-444- TALK (3-449-705 -9633) and 6-040-SUIC [place] (2-321-577 -6493). If you or someone you know talks about suicide or feels hopeless, seek help immediatel y. Start sertraline 25mg daily Adult heal th examination 627052255 Z00.00 Routine labs ordered- will contact pt with results Morbid obesity 637822939 E66.01 BMI 40 Advised decreased portion sizes, good food choices, limited eating out or fast food and eliminate soda and juice from diet. Advised physical activity daily and offered encouragem ent to continue with positive changes. Depression screening 171 513140 Z13.31 PHQ9- Mild (8 out of 27) [facility] screening 584401443 Z13.39 GAD7- Mild (9 out of 21) Influenza vaccination declined 347018548 Z28.21 Nodular goiter 910125504 E04.9 Bilateral swelling L>R noted on PE todayU/S thyroid orderedLab s orderedWil l contact pt with results [id number] Mallory Peterson MD [facility] (Adult Med) [address] [place] [address] 0 12/12/2023 10:32:10 12/17/2023 12:55:01 Mixed anxiety and depressive disorder 532903439 F41.8 Be physically active. Doing 30 minutes of exercise every day is good for your body and mind. Start slowly if you find it difficult to get started. If you already exercise, continue doing so. Plan something nice for yourself every day. Include activities you have enjoyed in the past. Get enough sleep. Eat a balanced diet. If you are not hungry, eat small snacks instead of large meals. Do not drink alcohol, use illegal drugs, or take medication s that your doctor has not prescribed . They may interfere with your treatment. Spend time with family and friends. It may be helpful to talk openly about your depression with people you trust. Take your medication s exactly as prescribed . Don't make important life decisions while you are depressed. Depression can change the way you think. You will be able to make better decisions when you feel better. Think positively . Challenge negative thoughts with statements like I am hopeful ; Things will get better; and I can ask for the help I need. Write these statements down and read them often, even if you don't believe them yet. Be patient with yourself. It took time for your depression to develop and it will take time for your symptoms to improve. Don't assume too much or be too hard on yourself. Learn everything you can about depression from written and online materials. Check out behavioral health classes to learn more about how to deal with depression . Keep the numbers for these national suicide hotlines: 6-787-273- TALK (6-348-234 -6964) and 2-269-SUIC [place] (0-208-497 -3589). If you or someone you know talks about suicide or feels hopeless, seek help immediatel y. Increase sertraline from 25mg to 50mg dailyRTC 6 weeks Essential hypertension 14134170 I10 BP today: 134/82 BP Goal: Less than 140/90BP Controlled : noHealthy Weight: 5'4= 110-144 lbsDiscuss ed: Low sodium balanced diet, moderate exercise at least 3-4 times per week for an average of 40 minutes, limiting alcohol to 1 drink per day (F) or 2 drinks per day (M), and smoking cessation if currently smoking. Uncontroll ed Hypertensi on potential risks, heart attack, , stroke, kidney failure etc. Hypertensi on is the silent Killer Take your Hypertensi on medication daily keep appointmen ts stop concentrat ed sugars--fo llow 1500 meal plan exercise 50-60 minutes daily on most days see eye doctor once a year see dentist every 6 months Next Visit: 6week(s)C/ w amlodipine to 10mg dailyStart Losartan 25mg daily Tension-type headache 39 6773820 G44.209 Start acetaminop hen 500mg 2 tabs q6h PRN pain Obesity 660479742 E66.81 2 BMI 39.1 Advised decreased portion sizes, good food choices, limited eating out or fast food and eliminate soda and juice from diet. Advised physical activity daily and offered encouragem ent to continue with positive changes. [id number] MD Tl Lorenzana (Adult Med) [address] [place] [address] [id number] 0 01/07/2024 16:28:14 01/07/2024 17:22:04 Mixed anxiety and depressive disorder 596840879 F41.8 Be physically active. Doing 30 minutes of exercise every day is good for your body and mind. Start slowly if you find it difficult to get started. If you already exercise, continue doing so. Plan something nice for yourself every day. Include activities you have enjoyed in the past. Get enough sleep. Eat a balanced diet. If you are not hungry, eat small snacks instead of large meals. Do not drink alcohol, use illegal drugs, or take medication s that your doctor has not prescribed . They may interfere with your treatment. Spend time with family and friends. It may be helpful to talk openly about your depression with people you trust. Take your medication s exactly as prescribed . Don't make important life decisions while you are depressed. Depression can change the way you think. You will be able to make better decisions when you feel better. Think positively . Challenge negative thoughts with statements like I am hopeful ; Things will get better; and I can ask for the help I need. Write these statements down and read them often, even if you don't believe them yet. Be patient with yourself. It took time for your depression to develop and it will take time for your symptoms to improve. Don't assume too much or be too hard on yourself. Learn everything you can about depression from written and online materials. Check out behavioral health classes to learn more about how to deal with depression . Keep the numbers for these national suicide hotlines: 7-224-987- TALK (7-906-639 -4951) and 2-407-SUIC [place] (7-164-571 -1084). If you or someone you know talks about suicide or feels hopeless, seek help immediatel y. Increase sertraline from 25mg to 50mg dailyRTC 2 months Tension-type headache 39 5209659 G44.209 C/W acetaminop hen 500mg 2 tabs q6h PRN pain Obesity 033249216 E66.81 2 BMI 38.8Advise d decreased portion sizes, good food choices, limited eating out or fast food and eliminate soda and juice from diet. Advised physical activity daily and offered encouragem ent to continue with positive changes. Depression screening 171 344558 Z13.31 PHQ9- Negative (0 out of 27) [facility] screening 026467909 Z13.39 GAD7- Negative (0 out of 21) [id number] Mallory Peterson MD [facility] (Adult Med) [address] [place] [address] 04/15/2024 15:33:34 04/16/2024 13:01:55 Essential hypertension 87055916 I10 BP today: 130/88 BP Goal: Less than 140/90BP Controlled : noHealthy Weight: 5'4= 110-144 lbsDiscuss ed: Low sodium balanced diet, moderate exercise at least 3-4 times per week for an average of 40 minutes, limiting alcohol to 1 drink per day (F) or 2 drinks per day (M), and smoking cessation if currently smoking. Uncontroll ed Hypertensi on potential risks, heart attack, , stroke, kidney failure etc. Hypertensi on is the silent Killer Take your Hypertensi on medication daily keep appointmen ts stop concentrat ed sugars--fo llow 1500 meal plan exercise 50-60 minutes daily on most days see eye doctor once a year see dentist every 6 months Next Visit: 3month(s)C /w amlodipine to 10mg dailyIncre ase Losartan to 50mg daily Mixed anxi ety and depressive disorder 771974763 F41.8 Be physically active. Doing 30 minutes of exercise every day is good for your body and mind. Start slowly if you find it difficult to get started. If you already exercise, continue doing so. Plan something nice for yourself every day. Include activities you have enjoyed in the past. Get enough sleep. Eat a balanced diet. If you are not hungry, eat small snacks instead of large meals. Do not drink alcohol, use illegal drugs, or take medication s that your doctor has not prescribed . They may interfere with your treatment. Spend time with family and friends. It may be helpful to talk openly about your depression with people you trust. Take your medication s exactly as prescribed . Don't make important life decisions while you are depressed. Depression can change the way you think. You will be able to make better decisions when you feel better. Think positively . Challenge negative thoughts with statements like I am hopeful ; Things will get better; and I can ask for the help I need. Write these statements down and read them often, even if you don't believe them yet. Be patient with yourself. It took time for your depression to develop and it will take time for your symptoms to improve. Don't assume too much or be too hard on yourself. Learn everything you can about depression from written and online materials. Check out behavioral health classes to learn more about how to deal with depression . Keep the numbers for these national suicide hotlines: 2-514-250- TALK (8-583-940 -6875) and 0-785-SUIC [place] (9-126-445 -1103). If you or someone you know talks about suicide or feels hopeless, seek help immediatel y. C/W sertraline 50mg dailyRTC 6 weeks Obesity 327532187 E66.81 2 BMI 39.8 Advised decreased portion sizes, good food choices, limited eating out or fast food and eliminate soda and juice from diet. Advised physical activity daily and offered encouragem ent to continue with positive changes. Depression screening 171 838393 Z13.31 PHQ9- Moderate (00 out of 27) [facility] screening 984540252 Z13.39 GAD7- Negative (4 out of 21) [id number] Mallory Peterson MD [facility] (Adult Med) [address] [place] [address] [id number] 0 05/28/2024 16:37:02 05/29/2024 14:13:04 Essential hypertension 10016807 I10 BP today: 130/88 BP Goal: Less than 140/90BP Controlled : noHealthy Weight: 5'4= 110-144 lbsDiscuss ed: Low sodium balanced diet, moderate exercise at least 3-4 times per week for an average of 40 minutes, limiting alcohol to 1 drink per day (F) or 2 drinks per day (M), and smoking cessation if currently smoking. Uncontroll ed Hypertensi on potential risks, heart attack, , stroke, kidney failure etc. Hypertensi on is the silent Killer Take your Hypertensi on medication daily keep appointmen ts stop concentrat ed sugars--fo llow 1500 meal plan exercise 50-60 minutes daily on most days see eye doctor once a year see dentist every 6 months Next Visit: 3month(s)C /w amlodipine to 10mg dailyIncre ase Losartan to 100mg daily Prediabetes 696184028 R7 3.03 A1C today 6.1C/w metformin ER 500mg daily Mixed anxi ety and depressive disorder 835007406 F41.8 Be physically active. Doing 30 minutes of exercise every day is good for your body and mind. Start slowly if you find it difficult to get started. If you already exercise, continue doing so. Plan something nice for yourself every day. Include activities you have enjoyed in the past. Get enough sleep. Eat a balanced diet. If you are not hungry, eat small snacks instead of large meals. Do not drink alcohol, use illegal drugs, or take medication s that your doctor has not prescribed . They may interfere with your treatment. Spend time with family and friends. It may be helpful to talk openly about your depression with people you trust. Take your medication s exactly as prescribed . Don't make important life decisions while you are depressed. Depression can change the way you think. You will be able to make better decisions when you feel better. Think positively . Challenge negative thoughts with statements like I am hopeful ; Things will get better; and I can ask for the help I need. Write these statements down and read them often, even if you don't believe them yet. Be patient with yourself. It took time for your depression to develop and it will take time for your symptoms to improve. Don't assume too much or be too hard on yourself. Learn everything you can about depression from written and online materials. Check out behavioral health classes to learn more about how to deal with depression . Keep the numbers for these national suicide hotlines: 2-914-419- TALK (6-881-563 -3829) and 4-106-SUIC [place] (0-354-638 -2845). If you or someone you know talks about suicide or feels hopeless, seek help immediatel y. C/W sertraline 50mg dailyc/w hydroxizin eRTC 3 months Constipation [id number] K5 9.00 Start MiraLax daily Increase water intake, increase fiber intake. Thyroid nodule 827590739 E04.1 R thyroid gland measures [id number] thyroid gland measures [id number] hmus measures 0.3cm [id number] L superior and inferior thyroid nodules, which represent TI Rads 4 nodules Dysphagia 08839238 R13.1 0 Morbid obesity 524165676 E66.01 BMI 40 Advised decreased portion sizes, good food choices, limited eating out or fast food and eliminate soda and juice from diet. Advised physical activity daily and offered encouragem ent to continue with positive changes. Depression screening 171 099816 Z13.31 PHQ9- Mild (7 out of 27) Mental [facility] screening [id number] Z13.39 GAD7- Negative (1 out of 21) Health Concerns Section Related Observation LastModified by Organization Detai ls LastModified Time None Recorded Concern Status LastModified by Organization Details LastModified Time None Recorded Advance Directives Directive N: Payers Insurance Date Sequence Insurance Name Policy Number Policy Fry Covered Member ID Fry Member ID Guarantor Name 11/26/2023 1 [facility] [id number] Beth L Prowell [id number] Beth Prowell 08/25/[address] [facility] [id number] Beth L Prowell [id number] Beth Prowell 09/26/2021 1 *SELF PAY* ameka Prowell 12/12/2023 2 [place] [facility] Beth Prowell [id number] Beth Prowell 11/26/2023 1 [facility] PRIOR TO 2020 (MEDICAID REPLACEMENT - HMO) Beth Prowell [id number] Beth Prowell 11/26/2023 1 [place] Beth Prowell [id number] Beth Prowell 11/26/2023 1 [employer] (POS) [id number] Beth L Prowell [id number] Beth Prowell 11/26/2023 2 [place] Beth Prowell [id number] Beth Prowell 11/26/2023 2 [facility] (MEDICARE REPLACEMENT/A DVANTAGE - HMO) Beth Prowell [id number] Beth Prowell 11/26/2023 1 COUNT INCLUDES THE [facility] (MEDICAID HMO) Beth Prowell [id number] Beth Prowell Notes Date Note Type Note Provider Name and Address Organization Details Recorded Time 11/26/2023 text/html ROS as noted in the HPI 37 y/o AAF here to establish care. Pt went to ER c/o 1 week with L sided Flank pain that radiates to back. Denies injury. Has some relief with urinating but no burning or pain with urination. Does have increased frequency in urination. No discoloration or odor to urine. She states that the ER only gave her muscle relaxers, which she didn't take, and told her that her BP was high.Pt is c/o feeling overwhelmed and stressed. Has this pain going on and then work is stressful, she is having the headaches d/t stress and probably her blood pressure. She has a lot going on at home. She denies SI/HI. FERMÍN ARCHIBALD PA-C Attn: [address] [place], [address], [facility] 11/26/2023 10:49:14 12/12/2023 text/html ROS as noted in the HPI 38 y/o AA F here for f/u ER visit. Pt states she was in the ER for HAs. States that she was having JUAN that radiated to her neck. She was given medication for her BP and JUAN and it worked for her but as soon as she finished the meds for her JUAN they came back.She has been having headaches almost every day.Pt is also c/o panic/depression issues. States that she had a panic attack at the store the other day and that she has been having episodes of depression. She denies SI/HI but states that her emotions have been fluctuating a lot and she can't seem to understand why. She has a lot going on in her life, being a single mother of 5 she is the one that has to drive her kids everywhere and is responsible for everything. She doesn't get to just breathe. She had an episode yesterday where everything seemed foggy and she was confused as to what she was doing.Denies SOB, CP, JUAN, N/V/D at this time. FERMÍN ARCHIBALD PA-C Attn: [address] [place], [address], [facility] 12/12/2023 11:35:37 01/07/2024 text/html Anxiety/Depressi onRe ported by PatientHPIFor severity, patient reportsdenies suicidal ideations,able to maintain relationships, anddoes not interfere with activities of daily living. For context, patient reportsno major life stressors. For associated symptoms, patient reportsdenies homicidal ideations,no significant weight gain,no significant weight loss,no visual/auditory hallucinations,no delusions,no shortness of breath,mood good,no anxiety,no crying spells,no panic,no isolation,sleeping well,appetite good,energy good,no apathy, andmaintaining functionality. 38 y/o AA F here for f/u anxiety and depression. Pt has not been able to return to work since her episode d/t paperwork not being able to be filled out. Pt is stressed about not being able to return to work and not being paid. She is depressed and stressed. Denies SI/HI at this time. She thinks that the medication is helping though.Headaches are doing better with medication as well. FERMÍN ARCHIBALD PA-C Attn: [address] [place], [address], [facility] 01/07/2024 16:53:13 04/15/2024 text/html ROS as noted in the HPI 38 y/o AA F here for f/u HTN and Depression/anxiety. Pt states that she has been more anxious lately. She states that work has been more stressful and she seems to be almost getting into a panic attack but has been able to control it. She describes feeling like she has an out of body experience and then getting some chest tightening and starting to feel like she cannot breathe. She also gets some numbness and tingling sensation of her hands a feet. Pt has been having a lot of headaches as well. Pt states that her BP has been average but cannot remember the numbers as she left her BP log at home. Denies SOB, CP, JUAN, N/V/D at this time. FERMÍN ARCHIBALD PA-C Attn: [address] [place], [address], [facility] 04/15/2024 17:52:10 05/28/2024 text/html ROS as noted in the HPI This is a 38 y/o here today for BP follow up and complaints of weight gain. She notes she takes her BP at home that have been around 125-130 systolic and 80's diastolic. She is taking her medications as prescribed and notes no side effects. Her past headaches have improved. Complaints of weight gain of 10 pds. Her diet consists of protein smoothies for lunch and fast food for dinner. Notes she is trying to not gain weight and notes issues with bowel movements. Constipated, feeling cazares in face and bloated for 2 weeks. Her stools are [place] stool chart type 1 when described by patient. Her last bowel movement was 2 days ago. She notes blood in stool one time that was present when wiping, she then had more fiber, and noted it did not help. She consumes 2 energy drinks in a day, 1 iced coffee a day, and only one water bottle a day for water intake. A prior visit regarding her thyroid was discussed and she notes that her insurance did not cover it at [place] so she did not get it done. She is happy with her current medication of sertraline and hydroxyzine. Works at [employer], working 5 days a week. 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 FERMÍN ARCHIBALD PA-C Attn: Accounting[address] [place], [address], [facility] 05/28/2024 18:20:04 OBGyn Episode Ob Episode Information Episode Created Date Number of Fetuses Patient Bloodtype Patient rh Status Prepregnancy Weight lbs Domestic Partner Domestic Partner Phone Father Name Medical Driver Status 06/27/19 19 1 A Positive 230 CLOSED Fetus Data First Name Last Name Admitted to NICU Weight (g) Sex Living Outcome Pediatric Complications Fetus ID Race Codes Race Delivery Type Journe y Prowe ll false 2834.95 F Full Term 36411 8-6 Afric an Ameri can Repeat Problems Problem 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 Repeat c/s. Baby girl per ultrasound, no name yet, Breast feeding going to try to breastfeed. [facility] Nexplanon. having a baby girl no name yet blanca rice 09/04/201812/10 still no name yet. blanca rice 12/10/2018 [facility] MR# [id number] Problem Name Start Date End Date Resolution Snomed Code Not e Deliveries by 06/26/20182000926406 004 Small for gestational age fetus 12/20/2018 [id number] Hyperemesis gravidarum 12/10/2018 802599 01 Gestational proteinuria 12/19/2018 60015 000 Michael Calculation Initial Michael Date Initial Exam Date Initial Exam Provider Initial Ultrasound Date Last Menstrual Period Date Ultra Sound Weeks Gestation 01/19/2019 06/26/2018 hayde 07/08/2018 04/12/2018 12 Eighteen To Twenty Week Michael Update Ultra Sound Date Fundal Height At Umbil Quickening Date Ultra Sound Latest Weeks Gestation Final Michael Confirmed By Final Michael Confirmed Date Final Michael Date Ultra Sound Latest Days Gestation 0 [email or web address] 08/01/2018 01/20/20 19 0 Pre-makenna Flowsheet Flowsheet Date 06/26/2018 Marte Score Blood Edema Fundus Height Fundus Units Glucose Ketones Leukocytes Nitrite Labor Signs Protein Cervic Dilation Cervic Effacement Cervic Station neg none none negative neg Type Weight in lbs Pre/Post Dialysis Refused Weight 230.429177247416 BP Diastolic BP Location Tested BP Systolic BP Type 70 110 sitting Fetus Heart Rate Present Fetus Movement Comments nob Flowsheet Date 07/12/2018 Marte Score Blood Edema Fundus Height Fundus Units Glucose Ketones Leukocytes Nitrite Labor Signs Protein Cervic Dilation Cervic Effacement Cervic Station Type Weight in lbs Pre/Post Dialysis Refused BP Diastolic BP Location Tested BP Systolic BP Type Fetus Heart Rate Present Fetus Movement Comments Flowsheet Date 08/01/2018 Marte Score Blood Edema Fundus Height Fundus Units Glucose Ketones Leukocytes Nitrite Labor Signs Protein Cervic Dilation Cervic Effacement Cervic Station none Type Weight in lbs Pre/Post Dialysis Refused Weight 236.380730831819 BP Diastolic BP Location Tested BP Systolic BP Type Fetus Heart Rate Present A 150 Present Fetus Movement A No Comments Flowsheet Date 09/04/2018 Marte Score Blood Edema Fundus Height Fundus Units Glucose Ketones Leukocytes Nitrite Labor Signs Protein Cervic Dilation Cervic Effacement Cervic Station neg none negative 1+ Type Weight in lbs Pre/Post Dialysis Refused Weight 236.658603491528 BP Diastolic BP Location Tested BP Systolic BP Type 60 130 sitting Fetus Heart Rate Present A 150 Present Fetus Movement Comments protein in urine 30mg/dL Flowsheet Date 10/03/2018 Marte Score Blood Edema Fundus Height Fundus Units Glucose Ketones Leukocytes Nitrite Labor Signs Protein Cervic Dilation Cervic Effacement Cervic Station neg 25 cm none trace none trace Type Weight in lbs Pre/Post Dialysis Refused Weight 237.592072208569 BP Diastolic BP Location Tested BP Systolic BP Type 82 126 sitting Fetus Heart Rate Present A 157 Present Fetus Movement A Yes Comments Flowsheet Date 11/19/2018 Marte Score Blood Edema Fundus Height Fundus Units Glucose Ketones Leukocytes Nitrite Labor Signs Protein Cervic Dilation Cervic Effacement Cervic Station neg none 32 cm none small none 1+ Type Weight in lbs Pre/Post Dialysis Refused With clothes 223.380831236757 BP Diastolic BP Location Tested BP Systolic BP Type 90 140 sitting Fetus Heart Rate Present A 142 Present Fetus Movement A Yes Comments send over for PIH eval [facility] Flowsheet Date 11/26/2018 Marte Score Blood Edema Fundus Height Fundus Units Glucose Ketones Leukocytes Nitrite Labor Signs Protein Cervic Dilation Cervic Effacement Cervic Station neg none 35 cm none negative none trace Type Weight in lbs Pre/Post Dialysis Refused Weight 230.184015499410 BP Diastolic BP Location Tested BP Systolic BP Type 68 130 sitting Fetus Heart Rate Present A 140 Present Fetus Movement A Yes Comments routine OB exam. patient's l abs for PIH were negative. Patient has rehydrated and feels better. No concerns at this time. Flowsheet Date 12/10/2018 Marte Score Blood Edema Fundus Height Fundus Units Glucose Ketones Leukocytes Nitrite Labor Signs Protein Cervic Dilation Cervic Effacement Cervic Station neg none 30 cm none trace none 1+ Type Weight in lbs Pre/Post Dialysis Refused With clothes 220.820597736068 BP Diastolic BP Location Tested BP Systolic BP Type 64 110 sitting 64 132 sitting Fetus Heart Rate Present A 145 Present Fetus Movement A Yes Comments Patient sent over to hospita l for IV hydration and NST + BPP and 24 hour urine collection to r/o PIH or other causes for N/V in . Flowsheet Date 12/19/2018 Marte Score Blood Edema Fundus Height Fundus Units Glucose Ketones Leukocytes Nitrite Labor Signs Protein Cervic Dilation Cervic Effacement Cervic Station neg none 31 cm none trace none 1+ 0cm 0% -4 Type Weight in lbs Pre/Post Dialysis Refused With clothes 218.230736223218 BP Diastolic BP Location Tested BP Systolic BP Type 82 140 sitting 86 118 sitting Fetus Heart Rate Present A 148 Present Fetus Movement A Yes Comments NST/BPP today. Repeat BP dec reased. Flowsheet Date 01/15/2019 Marte Score Blood Edema Fundus Height Fundus Units Glucose Ketones Leukocytes Nitrite Labor Signs Protein Cervic Dilation Cervic Effacement Cervic Station none 38 cm none Type Weight in lbs Pre/Post Dialysis Refused With clothes 217.226250649579 BP Diastolic BP Location Tested BP Systolic BP Type 100 140 sitting Fetus Heart Rate Present A 160 Present Fetus Movement A Yes Comments Flowsheet Date 02/20/2019 Marte Score Blood Edema Fundus Height Fundus Units Glucose Ketones Leukocytes Nitrite Labor Signs Protein Cervic Dilation Cervic Effacement Cervic Station Type Weight in lbs Pre/Post Dialysis Refused With clothes 204.139796935578 BP Diastolic BP Location Tested BP Systolic BP Type Fetus Heart Rate Present Fetus Movement Comments Menstrual History Last Menstrual Date Menses Monthly On Bcp Conception Prior Menses Frequency Hcg Plus Date Menarche Onset Age 0204/12/2018 true 28 13 Genetic Screening And Infection History Question Response Note Patient's Age Will Be 35 Years Or Older At Estim ated Date of Delivery false Thalassemia (Citizen Of [place], Bahamian, Mediterranean, Or Background): MCV < 80 false Neural Tube Defect (Meningomyelocele, Spina Bifi da, Or Anencephaly) false Congenital Heart Defect false Down Syndrome false Renny-Sachs (eg, Hinduism, Cajun, Japanese-Portuguese) f alse Emily Disease false Sickle Cell Disease Or Trait () false Hemophilia Or Other Blood Disorders false Muscular Dystrophy false Cystic Fibrosis false [place]'s Chorea false Mental Retardation/Autism false If Yes, Was Person Tested For Fragile X? false Other Inherited Genetic Or Chromosomal Disorder false Maternal Metabolic Disorder (eg, Type 1 Diabetes , PKU) false Patient Or Baby's Father Had A Child With Defects Not Listed Above false Recurrent Loss, Or A Stillbirth false Medications (including Suppl ements, Vitamins, Herbs, OTC Drugs), Illicit/Recreational Drugs, Alcohol false If Yes, Agent(s) And Strength/Dosage false Any Other Genetic History false Live With Someone With TB Or Exposed To TB false Patient Or Partner Has History Of Genital Herpes false Rash Or Viral Illness Since Last Menstrual Perio d false History Of STD, Gonorrhea, Chlamydia, HPV, Syphi lis false Other Infection History false History of HIV false History of Hepatitis false Prior GBS-infected child false Plans and Education First Trimester Discussed Date Discussion Item Discussion Note Discuss ed By 07/12/2018 Anticipated course of care Discu ssed at [facility]. [email or web address] 07/12/2018 Alcohol Discussed at [facility]. [email or web address] 07/12/2018 Intimate partner violence Denies. ap [email or web address] 07/12/2018 Environmental/work hazards Discussed at [facility]. [email or web address] 07/12/2018 Screening for aneuploidy apa [email or web address] 07/12/2018 Nutrition counseling ; special diet; dietary precautions (mercury, listeriosis) Discussed at [facility]. [email or web address] 07/12/2018 Childbirth classes/hospital facilities Di scussed at [facility]. 07/12/2018 HIV and other routine tests Disc ussed at [facility]. [email or web address] 07/12/2018 Risk factors identif ied by history Discussed at [facility]. 07/12/2018 Weight gain counseling Discussed at [facility]. 07/12/2018 Exercise Discussed at [facility]. [email or web address] 07/12/2018 Teratogens [email or web address] 07/12/2018 Use of any medicatio ns (including supplements, vitamins, herbs, or OTC drugs) [email or web address] 07/12/2018 Discussed at [facility]. [email or web address] 7 07/12/2018 Sexual activity [email or web address] 07/12/2018 Tobacco/smoking cess ation counseling (ask, advise, assess, assist, and arrange) Discussed at [facility]. [email or web address] 07/12/2018 Illicit/recreational drugs Discussed at [facility]. [email or web address] 07/12/2018 Dental care Discussed at [facility]. [email or web address] 07/12/2018 Travel Discussed at [facility]. [email or web address] 07/12/2018 Seat belt use Discussed at [facility]. [email or web address] 7 07/12/2018 Indications for ultrasonography Discussed at [facility]. 07/12/2018 Avoidance of saunas or hot tubs Discussed at [facility]. [email or web address] 07/12/2018 Toxoplasmosis precau tions (cats/raw meat) No cats in home. [email or web address] Second Trimester Discussed Date Discussion Item Discussion Note Discuss ed By 12/19/2018 Selecting a care provider orly amos [email or web address] 12/19/[address] anning/tubal sterilization nexplanon [email or web address] 12/19/2018 Depression screening (when indicated) [email or web address] 12/19/2018 Abnormal lab values son 19 12/19/2018 Signs and symptoms of labor 12/19/2018 Intimate partner violence ms [email or web address] 12/19/2018 Tobacco/smoking cess ation counseling (ask, advise, assess, assist, and arrange) Third Trimester Discussed Date Discussion Item Discussion Note Discuss ed By 12/19/2018 Anesthesia plans spinal repeat Circumcision baby girl 12/19/2018 yes [email or web address] 12/19/2018 Labor signs wtc/wlb given [email or web address] 12/19/2018 Family medical leave or disability forms Gave to Mackenzie YAP paperwork to be filled out. 12/19/2018 mds [email or web address] 12/19/2018 Trial of labor after (TOLAC) counseling n/a [email or web address] Delivery Information Delivery Date Delivery Type Labor Anesthesia Weeks Gestation Incision Type Labor Labor Length Hrs Delivered By Post Complications Tubal Sterilization Discharge Date Comments 9 Induce d Regional-Sp inal 39.3 Low Transvers e false [place] None false 01/18/2019 Discharge Information Feeding Method Contraceptive Method Maternal HG B and HCT Levels Bottle implant Ob Episode Information Episode Created Date Number of Fetuses Patient Bloodtype Patient rh Status Prepregnancy Weight lbs Domestic Partner Domestic Partner Phone Father Name Medical Driver Status 12/10/19 15 1 CLOSED Fetus Data First Name Last Name Admitted to NICU Weight (g) Sex Living Outcome Pediatric Complications Fetus ID Race Codes Race Delivery Type , Spontane ous [id number] Michael Calculation Initial Michael Date Initial Exam Date Initial Exam Provider Initial Ultrasound Date Last Menstrual Period Date Ultra Sound Weeks Gestation 0 Eighteen To Twenty Week Michael Update Ultra Sound Date Fundal Height At Umbil Quickening Date Ultra Sound Latest Weeks Gestation Final Michael Confirmed By Final Michael Confirmed Date Final Michael Date Ultra Sound Latest Days Gestation 0 0 Menstrual History Last Menstrual Date Menses Monthly On Bcp Conception Prior Menses Frequency Hcg Plus Date Menarche Onset Age Delivery Information Delivery Date Delivery Type Labor Anesthesia Weeks Gestation Incision Type Labor Labor Length Hrs Delivered By Post Complications Tubal Sterilization Discharge Date Comments 4 12 Discharge Information Feeding Method Contraceptive Method Maternal HG B and HCT Levels Ob Episode Information Episode Created Date Number of Fetuses Patient Bloodtype Patient rh Status Prepregnancy Weight lbs Domestic Partner Domestic Partner Phone Father Name Medical Driver Status 12/10/19 15 1 CLOSED Fetus Data First Name Last Name Admitted to NICU Weight (g) Sex Living Outcome Pediatric Complications Fetus ID Race Codes Race Delivery Type 3203.49 35 M Full Term 13489 Primary Michael Calculation Initial Michael Date Initial Exam Date Initial Exam Provider Initial Ultrasound Date Last Menstrual Period Date Ultra Sound Weeks Gestation 0 Eighteen To Twenty Week Michael Update Ultra Sound Date Fundal Height At Umbil Quickening Date Ultra Sound Latest Weeks Gestation Final Michael Confirmed By Final Michael Confirmed Date Final Michael Date Ultra Sound Latest Days Gestation 0 0 Menstrual History Last Menstrual Date Menses Monthly On Bcp Conception Prior Menses Frequency Hcg Plus Date Menarche Onset Age Delivery Information Delivery Date Delivery Type Labor Anesthesia Weeks Gestation Incision Type Labor Labor Length Hrs Delivered By Post Complications Tubal Sterilization Discharge Date Comments 9 Regional-Sp inal 40 false Jack Discharge Information Feeding Method Contraceptive Method Maternal HG B and HCT Levels Ob Episode Information Episode Created Date Number of Fetuses Patient Bloodtype Patient rh Status Prepregnancy Weight lbs Domestic Partner Domestic Partner Phone Father Name Medical Driver Status 12/10/19 15 1 A Positive 202 Ramírez Prowell Fabricecarlinemeena 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 CLOSED Fetus Data First Name Last Name Admitted to NICU Weight (g) Sex Living Outcome Pediatric Complications Fetus ID Race Codes Race Delivery Type Julia e Galilea PROWE LL false 3090.09 56 F Full Term iSmran Velazquezcarlinemeena 56546 4-5 Black or Afric an Ameri can Problems Problem Notes Problem Name Start Date End Date Resolution Snomed Code Not e Bacterial vaginosis 460086046 Candidiasis of vagina [id number] state [id number] Michael Calculation Initial Michael Date Initial Exam Date Initial Exam Provider Initial Ultrasound Date Last Menstrual Period Date Ultra Sound Weeks Gestation 03/17/2015 12/09/2014 [email or web address] 06/10/2014 0 Eighteen To Twenty Week Michael Update Ultra Sound Date Fundal Height At Umbil Quickening Date Ultra Sound Latest Weeks Gestation Final Michael Confirmed By Final Michael Confirmed Date Final Michael Date Ultra Sound Latest Days Gestation 0 03/17/19 16 0 Pre- Flowsheet Flowsheet Date 12/09/2014 Marte Score Blood Edema Fundus Height Fundus Units Glucose Ketones Leukocytes Nitrite Labor Signs Protein Cervic Dilation Cervic Effacement Cervic Station neg none 28 cm none negative neg 0cm 40% - 4 Type Weight in lbs Pre/Post Dialysis Refused 202.968239580615 BP Diastolic BP Location Tested BP Systolic BP Type 74 122 sitting Fetus Heart Rate Present Fetus Movement A Yes Comments Flowsheet Date 12/25/2014 Marte Score Blood Edema Fundus Height Fundus Units Glucose Ketones Leukocytes Nitrite Labor Signs Protein Cervic Dilation Cervic Effacement Cervic Station neg none 28 cm none negative neg Type Weight in lbs Pre/Post Dialysis Refused 202.642507801094 BP Diastolic BP Location Tested BP Systolic BP Type 64 102 sitting Fetus Heart Rate Present A 140 Present Fetus Movement A Yes Comments 1 hour GTT in progress. Flowsheet Date 03/01/2015 Marte Score Blood Edema Fundus Height Fundus Units Glucose Ketones Leukocytes Nitrite Labor Signs Protein Cervic Dilation Cervic Effacement Cervic Station neg none 35 cm none negative Other (see comments ) neg 1cm 50% -3 Type Weight in lbs Pre/Post Dialysis Refused [id number] BP Diastolic BP Location Tested BP Systolic BP Type 84 128 sitting Fetus Heart Rate Present A 147 Present Fetus Movement A Yes Comments intermittent pain along pfan nensteel incision. Will schedule repeat for 03/10/15 Flowsheet Date 03/09/2015 Marte Score Blood Edema Fundus Height Fundus Units Glucose Ketones Leukocytes Nitrite Labor Signs Protein Cervic Dilation Cervic Effacement Cervic Station neg none 36 cm none negative neg 1cm 50% - 2 Type Weight in lbs Pre/Post Dialysis Refused [id number] BP Diastolic BP Location Tested BP Systolic BP Type 82 122 sitting Fetus Heart Rate Present A 147 Present Fetus Movement A Yes Comments Had to cancel amnio due to H ospital policy issues. Explained to patient will have to wait for start of labor due to late registration (28 weeks) before performing repeat electivec-section. Follow up visit one week. Flowsheet Date 03/18/2015 Marte Score Blood Edema Fundus Height Fundus Units Glucose Ketones Leukocytes Nitrite Labor Signs Protein Cervic Dilation Cervic Effacement Cervic Station neg none 34 cm none negative neg 1cm 60% - 3 Type Weight in lbs Pre/Post Dialysis Refused [id number] BP Diastolic BP Location Tested BP Systolic BP Type 88 140 sitting Fetus Heart Rate Present A 144 Present Fetus Movement A Yes Comments Flowsheet Date 04/01/2015 Marte Score Blood Edema Fundus Height Fundus Units Glucose Ketones Leukocytes Nitrite Labor Signs Protein Cervic Dilation Cervic Effacement Cervic Station Type Weight in lbs Pre/Post Dialysis Refused 186.991058041448 BP Diastolic BP Location Tested BP Systolic BP Type 104 158 sitting Fetus Heart Rate Present Fetus Movement Comments Flowsheet Date 04/29/2015 Marte Score Blood Edema Fundus Height Fundus Units Glucose Ketones Leukocytes Nitrite Labor Signs Protein Cervic Dilation Cervic Effacement Cervic Station trace none none negative neg Type Weight in lbs Pre/Post Dialysis Refused 182.879281484379 BP Diastolic BP Location Tested BP Systolic BP Type 104 148 sitting Fetus Heart Rate Present Fetus Movement Comments Menstrual History Last Menstrual Date Menses Monthly On Bcp Conception Prior Menses Frequency Hcg Plus Date Menarche Onset Age 0406/10/2014 Genetic Screening And Infection History Question Response Note Patient's Age Will Be 35 Yea rs Or Older At Estimated Date of Delivery false Thalassemia (Citizen Of [place], Bahamian, Mediterranean, Or Background): MCV < 80 false Neural Tube Defect (Meningom yelocele, Spina Bifida, Or Anencephaly) false Congenital Heart Defect false Down Syndrome false Renny-Sachs (eg, Hinduism, Cajun, Japanese-Portuguese) f alse Emily Disease false Sickle Cell Disease Or Trait () false Hemophilia Or Other Blood Disorders false Muscular Dystrophy false Cystic Fibrosis false [place]'s Chorea false Mental Retardation/Autism false If Yes, Was Person Tested For Fragile X? false Other Inherited Genetic Or Chromosomal Disorder false Maternal Metabolic Disorder (eg, Type 1 Diabetes , PKU) false Patient Or Baby's Father Had A Child With Defects Not Listed Above false Recurrent Loss, Or A Stillbirth true 2013 Medications (including Suppl ements, Vitamins, Herbs, OTC Drugs), Illicit/Recreational Drugs, Alcohol false yes prenat es If Yes, Agent(s) And Strength/Dosage false Any Other Genetic History false Live With Someone With TB Or Exposed To TB false Patient Or Partner Has History Of Genital Herpes false Rash Or Viral Illness Since Last Menstrual Perio d false History Of STD, Gonorrhea, Chlamydia, HPV, Syphi lis false Other Infection History false Delivery Information Delivery Date Delivery Type Labor Anesthesia Weeks Gestation Incision Type Labor Labor Length Hrs Delivered By Post Complications Tubal Sterilization Discharge Date Comments 6 None Regional-Sp inal 41.1 Low Transvers e false Frank None false 03/27/2015 Discharge Information Feeding Method Contraceptive Method Maternal HG B and HCT Levels Bottle to discuss BCP, or Depot Ob Episode Information Episode Created Date Number of Fetuses Patient Bloodtype Patient rh Status Prepregnancy Weight lbs Domestic Partner Domestic Partner Phone Father Name Medical Driver Status 12/10/19 15 1 CLOSED Fetus Data First Name Last Name Admitted to NICU Weight (g) Sex Living Outcome Pediatric Complications Fetus ID Race Codes Race Delivery Type 2919.99 85 M Full Term [id number] Vaginal Michael Calculation Initial Michael Date Initial Exam Date Initial Exam Provider Initial Ultrasound Date Last Menstrual Period Date Ultra Sound Weeks Gestation 0 Eighteen To Twenty Week Michael Update Ultra Sound Date Fundal Height At Umbil Quickening Date Ultra Sound Latest Weeks Gestation Final Michael Confirmed By Final Michael Confirmed Date Final Michael Date Ultra Sound Latest Days Gestation 0 0 Menstrual History Last Menstrual Date Menses Monthly On Bcp Conception Prior Menses Frequency Hcg Plus Date Menarche Onset Age Delivery Information Delivery Date Delivery Type Labor Anesthesia Weeks Gestation Incision Type Labor Labor Length Hrs Delivered By Post Complications Tubal Sterilization Discharge Date Comments 5 None 40 false Ramírez Discharge Information Feeding Method Contraceptive Method Maternal HG B and HCT Levels Ob Episode Information Episode Created Date Number of Fetuses Patient Bloodtype Patient rh Status Prepregnancy Weight lbs Domestic Partner Domestic Partner Phone Father Name Medical Driver Status 12/10/19 15 1 CLOSED Fetus Data First Name Last Name Admitted to NICU Weight (g) Sex Living Outcome Pediatric Complications Fetus ID Race Codes Race Delivery Type 2381.35 8 F Full Term [id number] Vaginal Michael Calculation Initial Michael Date Initial Exam Date Initial Exam Provider Initial Ultrasound Date Last Menstrual Period Date Ultra Sound Weeks Gestation 0 Eighteen To Twenty Week Michael Update Ultra Sound Date Fundal Height At Umbil Quickening Date Ultra Sound Latest Weeks Gestation Final Michael Confirmed By Final Michael Confirmed Date Final Michael Date Ultra Sound Latest Days Gestation 0 0 Menstrual History Last Menstrual Date Menses Monthly On Bcp Conception Prior Menses Frequency Hcg Plus Date Menarche Onset Age Delivery Information Delivery Date Delivery Type Labor Anesthesia Weeks Gestation Incision Type Labor Labor Length Hrs Delivered By Post Complications Tubal Sterilization Discharge Date Comments 4 None 40 false Edita Discharge Information Feeding Method Contraceptive Method Maternal HG B and HCT Levels Ob Episode Information Episode Created Date Number of Fetuses Patient Bloodtype Patient rh Status Prepregnancy Weight lbs Domestic Partner Domestic Partner Phone Father Name Medical Driver Status 12/10/19 15 1 CLOSED Fetus Data First Name Last Name Admitted to NICU Weight (g) Sex Living Outcome Pediatric Complications Fetus ID Race Codes Race Delivery Type 2948.34 8 M Full Term [id number] Vaginal Michael Calculation Initial Michael Date Initial Exam Date Initial Exam Provider Initial Ultrasound Date Last Menstrual Period Date Ultra Sound Weeks Gestation 0 Eighteen To Twenty Week Michael Update Ultra Sound Date Fundal Height At Umbil Quickening Date Ultra Sound Latest Weeks Gestation Final Michael Confirmed By Final Michael Confirmed Date Final Michael Date Ultra Sound Latest Days Gestation 0 0 Menstrual History Last Menstrual Date Menses Monthly On Bcp Conception Prior Menses Frequency Hcg Plus Date Menarche Onset Age Delivery Information Delivery Date Delivery Type Labor Anesthesia Weeks Gestation Incision Type Labor Labor Length Hrs Delivered By Post Complications Tubal Sterilization Discharge Date Comments 6 None 40 false Eliecer Discharge Information Feeding Method Contraceptive Method Maternal HG B and HCT Levels
[2024-09-28 11:55] VITALS: BP 165/97; PULSE 79; RESP 16; TEMP 36.6; O2SAT 100
--- OUTSIDE RECORDS SUMMARY | 2024-09-28 12:31 | XMS_ITS | Clinical Summary ---
Author Organization [facility] [place] [facility] Address [facility] [place] [address] Care Team Providers Care White Lead Filterer Name Role Phone Jasmyne Barry Primary Care [...] place to sleep or slept in a group home (including now)? 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
[2024-09-28 12:39] LABS: BEDSIDEPREGUCG Negative (Negative)
[2024-09-28 12:44] LABS: Add Urine Microscopic? YES; Appearance Urine Cloudy (Clear); Glucose Urine UA Negative (Negative); Leukocyte Esterase Ur Negative LEU/UL (Negative); Nitrate Urine Negative (Negative); Non Pathogenic Casts 0-2; Specific Grav Ur 1.020 (1.001-1.035)
[2024-09-28 12:59] LABS: Hematocrit 40.3 % (37.0-47.0); Hemoglobin 13.0 g/dL (12.0-15.0); Immature Granulocyte Percent A 0.3 % (0-0.5); Lymphocytes Absolute Auto 2.42 K/mm3 (0.9-3.2); Mean Corpuscular HGB Conc 32.3 g/dl (32-36); Mean Corpuscular Hemoglobin 28.8 pg (26-34); Mean Corpuscular Volume 89.2 fl (80-100); Nucleated Red Blood Cells Absolute Auto 0.000 K/mm3 (0.0-0.012); Nucleated Red Blood Cells Perc 0.0 % (0.0-0.2); Platelet Count Result 241 k/mm3 (150-375); Red Blood Count 4.52 M/mm3 (4.2-5.4); White Blood Count 6.9 K/mm3 (4.5-10.0)
--- NOTE | 2024-09-28 13:18 | ED_ITS ---
HPI - General Adult General Chief complaint: Abdominal Pain Stated complaint: abd painj Time Seen by Provider: 09/28/24 12:24 History of Present Illness HPI narrative: 38-year-old female presenting to the emergency department for evaluation for diffuse abdominal pain. Patient reports she began developing intense abdominal pain last night which she states felt like a miscarriage, patient is not currently . Patient states the pain radiates throughout her entire abdomen and has persisted. Patient denies associated nausea vomiting diarrhea. Does have prior surgical history of a . Patient reports she has been having vaginal spotting since the of this month. Patient states her menstrual cycle was not supposed to start until the . Related Data Allergies Allergy/AdvReac Type Severity Reaction Status Date / Time No Known Allergies Allergy Verified 09/28/24 12:24 Review of Systems 2 Review of Systems: All systems reviewed & are unremarkable except as noted in HPI and below Exam 2 Narrative: APPEARANCE: Well appearing, no pain, no distress, well-nourished. HEAD: normocephalic, atraumatic. EYES: PERRLA/EOMI, conjunctivae clear. NOSE: Normal no drainage EARS:TMS clear with good light reflex. THROAT: Pharynx clear, no exudate. NECK: Supple. No adenopathy, no masses. RESPIRATORY: Airway patent, respirations nonlabored. Clear to auscultation bilaterally, no rales, rhonchi, wheezing. CARDIOVASCULAR: Regular rate and rhythm without murmurs rubs or gallops. ABDOMINAL: Diffuse abdominal tenderness to palpation MUSCULOSKELETAL: Moves all extremities. Strength/ROM intact, No edema, No calf tenderness. NEURO: Alert. Cranial nerves II through XII intact. Good gait. Good coordination SKIN: Warm, dry. Normal Color Course Vital Signs Vital signs: Vital Signs Temperature 97.9 F 09/28/24 11:55 Pulse Rate 79 09/28/24 11:55 Respiratory Rate 16 09/28/24 11:55 Blood Pressure 165/97 H 09/28/24 11:55 Pulse Oximetry 100 09/28/24 11:55 Oxygen Delivery Room Air 09/28/24 11:55 Temperature 97.9 F 09/28/24 11:55 Pulse Rate 79 09/28/24 11:55 Respiratory Rate 16 09/28/24 11:55 Blood Pressure 165/97 H 09/28/24 11:55 Pulse Oximetry 100 09/28/24 11:55 Oxygen Delivery Room Air 09/28/24 11:55 Medical Decision Making MDM Narrative Medical decision making narrative: 38-year-old female presented to the emergency department for evaluation for diffuse abdominal discomfort. Patient denies any associated nausea or vomiting. Patient is currently afebrile with no leukocytosis hemoglobin of 13.0. Patient does have a mild hyponatremia with a sodium of 129 with no other acute findings on her CMP including normal O2 bili AST ALT alk-phos lipase. UA was positive for ketones positive for blood and negative infection. Patient states she does have some vaginal spotting. Urine culture was ordered. Patient's test was negative. CT scan was ordered due to the patient having diffuse abdominal tenderness to palpation. Scan was limited by motion artifact but did show evidence colitis. Patient will be started on Augmentin encouraged follow clear liquid diet for the next few days. Patient was also advised to take Tylenol and ibuprofen for pain control. All questions concerns were addressed. Differential Diagnosis Differential Diagnosis: Colitis, diverticulitis, urinary tract infection, pyelonephritis Vital Signs Vital Signs: Vital Signs Temperature 97.9 F 09/28/24 11:55 Pulse Rate 79 09/28/24 11:55 Respiratory Rate 16 09/28/24 11:55 Blood Pressure 165/97 H 09/28/24 11:55 Pulse Oximetry 100 09/28/24 11:55 Oxygen Delivery Room Air 09/28/24 11:55 Temperature 97.9 F 09/28/24 11:55 Pulse Rate 79 09/28/24 11:55 Respiratory Rate 16 09/28/24 11:55 Blood Pressure 165/97 H 09/28/24 11:55 Pulse Oximetry 100 09/28/24 11:55 Oxygen Delivery Room Air 09/28/24 11:55 Lab Data Lab results reviewed: Yes I reviewed the patient's lab results. 09/28/24 12:53 09/28/24 12:53 Labs: Lab Results 09/28/24 09/28/24 09/28/24 Range/Units 12:35 12:38 12:53 WBC 6.9 (4.5-10.0) K/mm3 RBC 4.52 (4.2-5.4) M/mm3 Hgb 13.0 (12.0-15.0) g/dL Hct 40.3 (37.0-47.0) % MCV 89.2 (80-100) fl MCH 28.8 (26-34) pg MCHC 32.3 (32-36) g/dl RDW 15.3 H (11.5-14.5) % Plt Count 241 (150-375) k/mm3 MPV 12.0 H (7.4-10.4) fl Immature Gran % (Auto) 0.3 (0-0.5) % Neut % (Auto) 50.5 (45.5-73.1) % Lymph % (Auto) 35.2 (18.3-44.2) % [place] % (Auto) 10.8 H (2.6-8.5) % Eos % (Auto) 2.6 (0-4.4) % Baso % (Auto) 0.6 (0.2-1.2) % Lymph # (Auto) 2.42 (0.9-3.2) K/mm3 [place] # (Auto) 0.7 H (0.1-0.6) K/mm3 Eos # (Auto) 0.2 (0-0.3) K/mm3 Baso # (Auto) 0.0 (0.0-0.1) K/mm3 Abs Immat Gran (auto) 0.02 (0.00-0.031) K/mm3 Absolute Neuts (auto) 3.5 (1.3-6.7) K/mm3 Absolute Nucleated RBC 0.000 (0.0-0.012) K/mm3 Nucleated RBC % 0.0 (0.0-0.2) % Sodium 129 L (137-145) mmol/L Potassium 3.8 (3.4-5.0) mmol/L Chloride 103 (98-107) mmol/L Carbon Dioxide 22 (22-30) mmol/L Anion Gap 4 (4-12) mmol/L BUN 8 (7-17) mg/dL Creatinine 0.78 (0.7-1.0) mg/dL Estim Creat Clear Calc 105 ml/min Estimated GFR > 60 (59 - ) Glucose 109 (65-110) mg/dL Calcium 8.7 (8.4-10.2) mg/dL Total Bilirubin 0.5 (0.2-1.3) mg/dL AST 30 (14-36) U/L ALT 24 (6-35) U/L Alkaline Phosphatase 71 (38-126) U/L Total Protein 8.1 (6.3-8.2) g/dL Albumin 4.1 (3.5-5.1) g/dL Lipase 56 (23-300) U/L Urine Color Yellow (Yellow) Urine Appearance Cloudy H (Clear) Urine pH 7.0 (5.0-9.0) Ur Specific [place] 1.020 (1.001-1.035) Urine Protein Trace (Negative) mg/dL Urine Glucose (UA) Negative (Negative) mg/dL Urine Ketones Trace H (Negative) mg/dL Ur Blood (Man) 2+ H (Negative) Urine Nitrate Negative (Negative) Urine Bilirubin Negative (Negative) Urine Urobilinogen 1.0 (<2.0) mg/dL Leukocyte Esterase Rfl Negative (Negative) WALLACE/UL Urine RBC 0-2 (0-2) /hpf Urine WBC 0-5 (0-3) /hpf Ur Squamous Epith Cells Few (Few) /hpf Urine Bacteria 2+ H /hpf Urine Casts 0-2 POC Urine HCG, Qual Negative (Negative) Imaging Data Radiologist's impression: Impressions Abdomen/Pelvis CT 09/28/24 14:38 IMPRESSION: Initial post contrast images limited by severe motion artifact. Repeat imaging limited by delayed phase. Mild wall edema in the transverse colon as can be seen with colitis. Uterine fibroid. Otherwise, no definite acute abdominopelvic process detected, within the limitations noted above. Discharge Plan Discharge Clinical Impression: Abdominal pain, Colitis Patient Disposition: Home Condition: Stable Instructions: Antibiotic Form, Abdominal Pain (ED), Colitis (ED) Additional Instructions: Tylenol and ibuprofen for pain control. Clear liquid diet for the next 1-3 days. Antibiotic as directed until completed. Have close follow-up with your primary care physician. If you have any worsening symptoms then please call or return to the emergency department. Patient Language: Tongan Prescriptions: New ondansetron 4 mg tablet,disintegrating 4 mg PO Q8H PRN (Reason: nausea and vomiting) Qty: 14 0RF amoxicillin-pot clavulanate 875-125 mg tablet 1 tablet PO Q12H 7 Days Qty: 14 0RF Follow-up/Referrals: Jamie,WILMAR Patino [Primary Care Provider] -
[2024-09-28 13:19] LABS: Alanine Aminotransferase 24 U/L (6-35); Albumin Level 4.1 g/dL (3.5-5.1); Alkaline Phosphatase 71 U/L (38-126); Anion Gap 4 mmol/L (4-12); Aspartate Amino Transferase 30 U/L (14-36); Bilirubin,Total 0.5 mg/dL (0.2-1.3); Blood Urea Nitrogen 8 mg/dL (7-17); Calcium 8.7 mg/dL (8.4-10.2); Carbon Dioxide 22 mmol/L (22-30); Chloride 103 mmol/L (98-107); Estimated CRCL calculation 105 ml/min; Estimated Glomerular Filt Rate > 60; Glucose 109 mg/dL (65-110); Lipase 56 U/L (23-300); Potassium 3.8 mmol/L (3.4-5.0); Sodium 129 mmol/L (137-145); Total Protein 8.1 g/dL (6.3-8.2)
== END 2024-09-28 15:42 | disposition home or self-care (01) ==
PROVIDERS: Emergency Provider Emergency Medicine; PCP Physician Assistant Medical
DX: K52.9 Noninfective gastroenteritis and colitis, unspecified (principal); D25.9 Leiomyoma of uterus, unspecified
CPT/HCPCS: 36415; 74177; 80053; 81001; 81025; 83690; 85025; 99284; A9270; Q9967

== ENCOUNTER 2024-09-30 12:40 | Outpatient (CLI) | payer OTHER, SELFPAY ==
--- NOTE | ~2024-09-30 | US_ITS ---
EXAMINATION: US FNA w image guidance DATE: 09/30/2024 13:36 INDICATION: Nontoxic single left thyroid nodule TECHNIQUE: A time-out was performed to verify the patient's name, date of , and procedure to be performed . The procedure and its benefits and risks were discussed with the patient. Risks specifically discus sed included bleeding and infection. The patient understood the risks and agreed to proceed. The neck was prepped and draped in the usual sterile manner. 5 mL 1% lidocaine was used for local anesthesia . 5 passes were made with a 25G needle into the lesion. Appropriate needle location was documented with continuous sonographic guidance. A sterile bandage was applied. There were no immediate compli cations. FINDINGS: Grayscale ultrasound images demonstrate biopsy needles advanced into a 5.4 cm solid hypoechoic nodule in the mid left thyroid. IMPRESSION: 1. Successful ultrasound-guided fine needle aspiration of a 5.4 cm Ti RADS 4 left thyroid mass. Reviewed, dictated and finalized at location A. IMPRESSION: 1. Successful ultrasound-guided fine needle aspiration of a 5.4 cm Ti RADS 4 l eft thyroid mass.
--- OUTSIDE RECORDS SUMMARY | 2024-09-30 12:44 | XMS_ITS | Clinical Summary ---
Author Organization [facility] Address [facility] [place] [address] Care Team Providers Care Snath Handle Assembler Name Role Phone Jasmyne Barry Primary Care [...] place to sleep or slept in a halfway (including now)? 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 Advance Directives * Full Code (Latest Code Status on File) Date Activated Date Inactivated Comments 12/05/2023 9:58 PM 12/06/2023 4:51 PM * Full Code Date Activated Date Inactivated Comments 11/24/2022 2:35 PM 11/25/2022 2:28 PM Care Teams Snath Handle Assembler Relationship Specialty Start Date End Date Jasmyne Barry PA [address] [place] [address] PCP - General PHYSICIAN COMBINATION MACHINE TOOL SETTER 11/25/22
--- OUTSIDE RECORDS SUMMARY | 2024-09-30 12:45 | XMS_ITS | Data Portability ---
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 Lab HbA1c (hemoglobin A1c), blood 2024 025 In-Office Order, Internal Use Only DO Not Attach Compendium DO Not Attach Compendium, Do Not Delete/merge, [id number] 5 17:51:15 culture, urine 2023 024 [facility] [address], [address], [place], [address], 4 08:31:20 urinalysis, dipstick 2023 024 [email or web address] In-Office Order, Internal Use Only DO Not Attach Compendium DO Not Attach Compendium, Do Not Delete/merge, [id number] 10:48:13 CBC w/ auto diff 2023 024 BEVERLY SANCHEZ, Theodore prince [address], [address], [place], [address], 4 06:22:10 lipid panel, serum 2023 024 BEVERLY SANCHEZ, Theodore [address], [address], [place], [address], 4 06:22:06 HbA1c (hemoglobin A1c), blood 2023 024 BEVERLY BERMUDEZRP, Theodore [address], [address], [place], [address], 4 06:22:09 HIV 1 + 2, meaningful use set 2023 024 BEVERLY SANCHEZ, Theodore [address], [address], [place], [address], 4 06:22:12 T3, free, serum or plasma 2023 024 BEVERLY SANCHEZ, Theodore [address], [address], [place], [address], 4 06:22:11 TSH + free T4, serum 2023 024 BEVERLY SANCHEZ, Theodore [address], [address], [place], [address], 4 06:22:05 CMP, serum or plasma 2023 024 BEVERLY BERMUDEZ, Theodore Lyon [address], [address], [place], [address], 4 06:22:07 albumin/cre atinine, mass ratio, urine 2023 024 BEVERLY SANCHEZ, Theodore Lyon [address], [address], [place], [address], 4 10:13:32 Referral None recorded. Procedures fine needle aspiration, ultrasound guided, thyroid (PROC) [email or web address] ([facility]), [address] [place], [address], 5 10:03:31 Surgeries None recorded. Imaging US, kidney 2023 024 [facility] ([facility]), [address] [place], [address], 4 11:52:24 US, thyroid 2023 024 [facility] ([facility]), [address] [place], [address], 4 12:02:01 Medication Orders metformin ER 500 mg tablet,exte nded release 24 hr 2024 025 [facility], [address] [place] [address], [address], 5 17:51:21 hydroxyzine HCl 25 mg tablet 2024 025 [facility] [address], [address] [place] [address], [address], 5 17:51:30 sertraline 50 mg tablet 2024 025 [facility] [address], [address] [place] [address], [address], 5 17:51:26 Miralax 17 gram/dose oral powder 2024 025 [facility] [address], [address] [place] [address], [address], 5 17:51:23 amlodipine 10 mg tablet 2024 025 [facility] [address], [address] [place] [address], [address], 5 17:51:31 losartan 100 mg tablet 2024 025 [facility] [address], [address] [place], [address], 5 17:51:27 amlodipine 10 mg tablet 2024 [facility], [facility] [place], [address], 5 16:31:34 losartan 50 mg tablet 2024 [facility] [address], [address] [place] [address], [address], 18:12:36 sertraline 50 mg tablet 2024 [facility] [address], [address] [place] [address], [address], 5 16:31:35 hydroxyzine HCl 25 mg tablet 2024 025 [facility] [address], [address] [place] [address], [address], 5 16:31:31 acetaminoph en 500 mg tablet 2023 025 [facility] [address], [address] [place] [address], [address], 5 16:45:12 sertraline 50 mg tablet 2023 024 [facility] [address], [address] [place] [address], [address], 4 16:52:29 acetaminoph en 500 mg tablet 2023 024 [email or web address] [facility] [address], [address] [place] [address], [address], 5 16:45:01 amlodipine 10 mg tablet 2023 024 [facility], [address] [place], [address], 4 11:30:20 losartan 25 mg tablet 2023 024 [email or web address] [facility] 361, [address] [place], [address], 5 17:47:56 sertraline 50 mg tablet 2023 024 [facility], [address] [place], [address], 11:30:21 sertraline 25 mg tablet 2023 025 [facility], [address] [place], [address], 15:52:17 amlodipine 10 mg tablet 2023 024 [facility], [facility] [place], [address], 10:48:31 Patient TargetsNo targets recorded. Patient Instructions Encounter Date Encounter Id Patient Instructions Last Modified By Organization Details Last Modified Time 11/26/2023 [id number] A healthy lifestyle: care instructions Not available 11/26/2023 10:48:13 learning about high blood pressure Not available 11/26/2023 10:48:13 12/12/2023 [id number] A healthy lifestyle: care instructions Not available 12/12/2023 11:30:01 tension headache : care instructions [email or web address] Not available 12/12/2023 11:30:01 01/07/2024 [id number] A healthy lifestyle: care instructions Not available 01/07/2024 16:52:24 tension headache : care instructions [email or web address] Not available 01/07/2024 16:52:24 04/15/2024 [id number] A healthy lifestyle: care instructions [email or web address] Not available 04/15/2024 16:31:17 05/28/2024 [id number] learning about swallowing problems [email or web address] Not available 05/28/2024 17:51:15 thyroid nodules: care instructions [email or web address] Not available 05/28/2024 17:51:15 A healthy lifestyle: care instructions [email or web address] Not available 05/28/2024 17:51:47 constipation: care instructions [email or web address] Not available 05/28/2024 17:51:15 learning about high blood pressure [email or web address] Not available 05/28/2024 17:51:15 Reason for Referral None Reported. Results Created Date Observation Date Name Description Value Unit Range Abnormal Flag Note LastModifiedBy Organization Detail LastModifiedTime 11/26/1911/27/2023 ALBUM IN/CR EATIN INE RATIO ,URIN E creatinine, urine 149.7 mg/dL notest ab. Not Available [facility] ([facility]) [address] [place], [address], 2023 10:13:32 11/26/19 24 2023 ALBUM IN/CR EATIN INE RATIO ,URIN E albumin, urine 31.7 ug/mL notest ab. Not Available [facility] ([facility]) [address] [place], [address], 2023 10:13:32 11/26/19 24 2023 ALBUM IN/CR EATIN INE RATIO ,URIN E alb/creat ratio 21 mg/g_ creat 0-29 Rosemary l: 0 - 29 Moder ately incre ased: 30 - 300 Sever tricia incre ased: >300 Not Available [facility] ([facility]) [address] [place], [address], 2023 10:13:32 11/26/19 24 11/28/2023 URINE CULTU RE, TERELL NE urine culture, routine FINAL REPORT Not Available [facility] ([facility]) [address] [place], [address], 11/28/2023 08:31:20 11/26/19 24 11/28/2023 URINE CULTU RE, ROUTI NE result 1 COMMEN T Mixed uroge nital faheem 50,00 0-100 ,000 colon y formi ng units per mL Not Available [facility] ([facility]) [address] [facility], [place], [address], 11/28/2023 08:31:20 11/26/19 24 11/26/2023 urina lysis [...] 11/26/2023 urina lysis , dipst ick Specific Terrell 1.020 Not Available In-Off ice Order Internal Use Only DO Not Attach Compendium DO Not Attach Compendium, Do Not Delete/merge, [facility] 11/26/2023 10:29:39 11/26/19 24 11/26/2023 urina lysis , dipst ick Ketone Negati ve Not Available In-Office Order Internal Use Only DO Not Attach Compendium DO Not Attach Compendium, Do Not Delete/merge, [facility] 11/26/2023 10:29:39 11/26/19 24 11/26/2023 urina lysis , dipst ick Bilirubin Negati ve Not Available In-Office Order Internal Use Only DO Not Attach Compendium DO Not Attach Compendium, Do Not Delete/merge, [facility] 11/26/2023 10:29:39 11/26/19 24 11/26/2023 urina lysis , dipst ick Glucose Negati ve Not Available In-Office Order Internal Use Only DO Not Attach Compendium DO Not Attach Compendium, Do Not Delete/merge, [facility] 11/26/2023 10:29:39 11/26/19 24 11/26/2023 urina lysis , dipst ick Appearance Clear Not Available In-Offi ce Order Internal Use Only DO Not Attach Compendium DO Not Attach Compendium, Do Not Delete/merge, [facility] 11/26/2023 10:29:39 11/26/19 24 11/26/2023 urina lysis , dipst ick Color Yellow Not Available In-Office Order Internal Use Only DO Not Attach Compendium DO Not Attach Compendium, Do Not Delete/merge, [facility] 11/26/2023 10:29:39 12/05/1912/06/2023 Phosp hate [Mass /volu me] in Serum or Plasm a phosphate [mass/volume ] in serum or plasma 2.2 text: 2.5 - 4.9 mg/dL low PHOSP HORUS 2.2 (L) 2.5 - 4.9 MG/DL 12/05 1:00 AM CDT [facility] Not Available Not Available 04/15/2024 04:24:10 12/05/19 24 12/06/2023 Phosp hate [Mass /volu me] in Serum or Plasm a interpretati on and review of laboratory results Abnorm al Not Available Not Available 04:24:10 12/05/19 24 12/06/2023 Magne sium [Mass /volu me] in Serum or Plasm a magnesium [mass/volume ] in serum or plasma 2.2 text: 1.8 - 2.4 mg/dL MAGNE SIUM 2.2 1.8 - 2.4 MG/DL 12/05 1:00 AM CDT [facility] Not Available Not Available 04/15/2024 04:24:10 12/05/19 24 12/05/2023 aPTT in Plate let poor plasm a by Coagu latio n assay APTT in platelet poor plasma by coagulation assay 30.1 text: 25.1 - 36.5 sec PTT 30.1 25.1 - 36.5 SEC 12/04 9:22 PM CDT [facility] Not Available Not Available 04/15/2024 04:24:10 12/05/1912/05/2023 Proth rombi n time (PT) prothrombin time (PT) 11.7 text: 10.2 - 12.9 sec PROTI ME 11.7 10.2 - 12.9 SEC 12/04 9:22 PM CDT [facility] Not Available Not Available 04/15/2024 04:24:10 12/05/19 24 12/05/2023 Proth rombi n time (PT) INR in platelet poor plasma by coagulation assay 1 INR 1.0 12/04 9:22 PM CDT [facility] Not Available Not Available 04/15/2024 04:24:10 12/05/19 24 12/05/2023 Compr ehens gene metab olic 2000 panel - Serum or Plasm a glucose [mass/volume ] in serum or plasma 137 text: 70 - 99 mg/dL high GLUCO SE 137 (H) 70 - 99 MG/DL 10/02 /2024 9:16 PM CDT [facility] Not Available Not Available 04/15/2024 04:24:10 12/05/19 24 12/05/2023 Compr ehens gene metab olic 1999 panel - Serum or Plasm a urea nitrogen [mass/volume ] in serum or plasma 10 text: 7 - 18 mg/dL BUN 10 7 - 18 MG/DL 12/04 9:16 PM CDT [facility] Not Available Not Available 04/15/2024 04:24:10 12/05/19 24 12/05/2023 Compr ehens gene metab olic 1999 panel - Serum or Plasm a creatinine [mass/volume ] in serum or plasma 0.71 text: 0.55 - 1.02 mg/dL CREAT ININE S/P/B 0.71 0.55 - 1.02 MG/DL 12/04 9:16 PM CDT [facility] Not Available Not Available 04/15/2024 04:24:10 12/05/19 24 12/05/2023 Compr ehens gene metab olic 1999 panel - Serum or Plasm a sodium [moles/volum e] in serum or plasma 136 text: 136 - 145 mmol/L SODIU M S/P/B 136 136 - 145 MMOL/ L 12/04 9:16 PM CDT [facility] Not Available Not Available 04/15/2024 04:24:10 12/05/19 24 12/05/2023 Compr ehens gene metab olic 1999 panel - Serum or Plasm a potassium [moles/volum e] in serum or plasma 3.3 text: 3.5 - 5.1 mmol/L low POTAS SIUM S/P/B 3.3 (L) 3.5 - 5.1 MMOL/ L 12/04 9:16 PM CDT [facility] Not Available Not Available 04/15/2024 04:24:10 12/05/19 24 12/05/2023 Compr ehens gene metab olic 2000 panel - Serum or Plasm a chloride [moles/volum e] in serum or plasma 107 text: 97 - 115 mmol/L CHLOR FRANKLYN S/P/B 107 97 - 115 MMOL/ L 12/04 9:16 PM CDT [facility] Not Available Not Available 04/15/2024 04:24:10 12/05/19 24 12/05/2023 Compr ens gene metab olic 1999 panel - Serum or Plasm a carbon dioxide, total [moles/volum e] in serum or plasma 22.9 text: 21 - 32 mmol/L CO2 22.9 21 - 32 MMOL/ L 12/04 9:16 PM CDT [facility] Not Available Not Available 04/15/2024 04:24:10 12/05/19 24 12/05/2023 Compr ens gene metab olic 1999 panel - Serum or Plasm a calcium [mass/volume ] in serum or plasma 9 text: 8.5 - 10.1 mg/dL CALCI UM S/P/B 9.0 8.5 - 10.1 MG/DL 12/04 9:16 PM CDT [facility] Not Available Not Available 04/15/2024 04:24:10 12/05/19 24 12/05/2023 Compr ens geen metab olic 1999 panel - Serum or Plasm a bilirubin.to luis [mass/volume ] in serum or plasma 0.5 text: 0.2 - 1.2 mg/dL BILIR UBIN TOTAL S/P/B 0.5 0.2 - 1.2 MG/DL 12/04 9:16 PM CDT [facility] Not Available Not Available 04/15/2024 04:24:10 12/05/19 24 12/05/2023 Compr ens gene metab olic 2000 panel - Serum or Plasm a protein [mass/volume ] in serum or plasma 8.2 text: 6.4 - 8.2 g/dL TOTAL PROTE IN S/P/B 8.2 6.4 - 8.2 G/DL 12/04 9:16 PM CDT [facility] Not Available Not Available 04/15/2024 04:24:10 12/05/19 24 12/05/2023 Compr ehens gene metab olic 1999 panel - Serum or Plasm a albumin [mass/volume ] in serum or plasma 4.1 text: 3.4 - 5.0 g/dL ALBUM IN S/P/B 4.1 3.4 - 5.0 G/DL 12/04 9:16 PM CDT [facility] Not Available Not Available 04/15/2024 04:24:10 12/05/1912/05/2023 Compr ehens gene metab olic 1999 panel - Serum or Plasm a aspartate aminotransfe rase [enzymatic activity/vol ume] in serum or plasma 35 U/L low: 15U/Lh igh: 37U/L AST 35 15 - 37 U/L 12/04 9:16 PM CDT [facility] Not Available Not Available 04/15/2024 04:24:10 12/05/19 24 12/05/2023 Compr ehens gene metab olic 1999 panel - Serum or Plasm a alanine aminotransfe rase [enzymatic activity/vol ume] in serum or plasma 46 U/L low: 14U/Lh igh: 55U/L ALT 46 14 - 55 U/L 12/04 9:16 PM CDT [facility] Not Available Not Available 04/15/2024 04:24:10 12/05/19 24 12/05/2023 Compr ehens gene metab olic 1999 panel - Serum or Plasm a alkaline phosphatase [enzymatic activity/vol ume] in serum or plasma 90 U/L low: 50U/Lh igh: 136U/L ALKAL INE PHOSP HATAS E S/P/B 90 50 - 136 U/L 12/04 9:16 PM CDT [facility] Not Available Not Available 04/15/2024 04:24:10 12/05/19 24 12/05/2023 Compr ehens gene metab olic 1999 panel - Serum or Plasm a anion gap in serum or plasma 6.1 text: 2 - 10 mmol/L ANION GAP 6.1 2 - 10 MMOL/ L 12/04 9:16 PM CDT [facility] Not Available Not Available 04/15/2024 04:24:10 12/05/19 24 12/05/2023 Compr ehens gene metab olic 1999 panel - Serum or Plasm a urea nitrogen/cre atinine [mass ratio] in serum or plasma 14.2 low: 6high: 26 BUN CREAT ININE RATIO 14.2 6 - 26 12/04 9:16 PM CDT [facility] Not Available Not Available 04/15/2024 04:24:10 12/05/1912/05/2023 [facility] [place] gene metab olic 2000 panel - Serum or Plasm a albumin/glob ulin [mass ratio] in serum or plasma 1 text: 1.0 - 2.0 ratio A/G RATIO 1.0 1.0 - 2.0 RATIO 12/04 9:16 PM CDT [facility] Not Available Not Available 04/15/2024 04:24:10 12/05/1912/05/2023 Compr ehens gene metab olic 1999 panel - Serum or Plasm a glomerular filtration rate/1.73 sq M.predicted [volume rate/area] in serum, plasma or blood by creatinine-b ased formula (CKD-epi 2020) text: >90 mL/min /1.73 M2 GFR ESTIM ATE >90 >90 ML/OH N/1.7 3 M2 12/04 9:16 PM CDT [facility] Not Available Not Available 04/15/2024 04:24:10 12/05/1912/05/2023 Compr ehens gene metab olic 2000 panel - Serum or Plasm a interpretati on and review of laboratory results Abnorm al Not Available Not Available 04:24:10 12/05/19 24 12/05/2023 CBC W Auto Diffe renti al panel - Blood leukocytes [#/volume] in blood by automated count 10.83 text: 4.5 - 11.0 x10'3/ uL WBC 10.83 4.5 - 11.0 x10'3 /uL 12/04 8:47 PM CDT [facility] Not Available Not Available 04/15/2024 04:24:10 12/05/19 24 12/05/2023 CBC W Auto Diffe cyrus enrique panel - Blood erythrocytes [#/volume] in blood by automated count 4.7 text: 4.20 - 5.40 x10'6/ uL RBC 4.70 4.20 - 5.40 x10'6 /uL 12/04 8:47 PM CDT [facility] Not Available Not Available 04/15/2024 04:24:10 12/05/19 24 12/05/2023 CBC W Auto Diffkwasi enrique panel - Blood hemoglobin [mass/volume ] in blood 14.5 text: 12.0 - 16.0 g/dL HGB 14.5 12.0 - 16.0 G/DL 12/04 8:47 PM CDT [facility] Not Available Not Available 04/15/2024 04:24:10 12/05/1912/05/2023 CBC W Auto Diffe cyrus enrique panel - Blood hematocrit [volume fraction] of blood 42.6 % low: 38%hig h: 48% HCT 42.6 38.0 - 48.0 % 12/04 8:47 PM CDT [facility] Not Available Not Available 04/15/2024 04:24:10 12/05/1912/05/2023 CBC W Auto Diffe cyrus enrique panel - Blood MCV [entitic volume] 90.6 text: 81.0 - 99.0 fL MCV 90.6 81.0 - 99.0 FL 12/04 8:47 PM CDT [facility] Not Available Not Available 04/15/2024 04:24:10 10/02/12/05/2023 CBC W Auto Diffe renti al panel - Blood MCH [entitic mass] 30.9 pg low: 27pghi gh: 31pg MCH 30.9 27.0 - 31.0 PG 12/04 8:47 PM CDT [facility] Not Available Not Available 04/15/2024 04:24:10 12/05/19 24 12/05/2023 CBC W Auto Diffe renti al panel - Blood MCHC [mass/volume ] 34 text: 32.0 - 36.0 g/dL MCHC 34.0 32.0 - 36.0 G/DL 12/04 8:47 PM CDT [facility] Not Available Not Available 04/15/2024 04:24:10 12/05/19 24 12/05/2023 CBC W Auto Diffe renti al panel - Blood erythrocyte distribution width [entitic volume] by automated count 13.4 % low: 11.5%h igh: 14.5% RDW 13.4 11.5 - 14.5 % 12/04 8:47 PM CDT [facility] Not Available Not Available 04/15/2024 04:24:10 12/05/19 24 12/05/2023 CBC W Auto Diffe renti al panel - Blood platelets [#/volume] in blood 217 text: 130 - 400 x10'3/ uL PLT 217 130 - 400 x10'3 /uL 12/04 8:47 PM CDT [facility] Not Available Not Available 04/15/2024 04:24:10 12/05/19 24 12/05/2023 CBC W Auto Diffe renti al panel - Blood platelet mean volume [entitic volume] in blood 13 text: 9.3 - 12.2 fL high MPV 13.0 (H) 9.3 - 12.2 FL 12/04 8:47 PM CDT [facility] Not Available Not Available 04/15/2024 04:24:10 12/05/19 24 12/05/2023 CBC W Auto Diffe renti al panel - Blood differential cell count method - blood AUTOMA COMPA DIFFER ENTIAL DIFFE RENTI AL TYPE AUTOM ATED DIFFE RENTI AL 12/04 8:47 PM CDT [facility] Not Available Not Available 04/15/2024 04:24:10 12/05/19 24 12/05/2023 CBC W Auto Diffe renti al panel - Blood neutrophils/ 100 leukocytes in blood by automated count 53.5 % NEUTR OPHIL S % 53.5 % 12/04 8:47 PM CDT [facility] Not Available Not Available 04/15/2024 04:24:10 12/05/19 24 12/05/2023 CBC W Auto Diffe renti al panel - Blood lymphocytes/ 100 leukocytes in blood by automated count 34.5 % LYMPH OCYTE S % 34.5 % 12/04 8:47 PM CDT [facility] Not Available Not Available 04/15/2024 04:24:10 12/05/19 24 12/05/2023 CBC W Auto Diffe renti al panel - Blood monocytes/10 0 leukocytes in blood by automated count 8.3 % MONOC YTES % 8.3 % 12/04 8:47 PM CDT [facility] Not Available Not Available 04/15/2024 04:24:10 12/05/19 24 12/05/2023 CBC W Auto Diffe renti al panel - Blood eosinophils/ 100 leukocytes in blood by automated count 2.7 % EOSIN OPHIL S 2.7 % 12/04 8:47 PM CDT [facility] Not Available Not Available 04/15/2024 04:24:10 12/05/19 24 12/05/2023 CBC W Auto Diffe renti al panel - Blood basophils/10 0 leukocytes in blood by automated count 0.6 % BASOP HILS 0.6 % 12/04 8:47 PM CDT [facility] Not Available Not Available 04/15/2024 04:24:10 12/05/19 24 12/05/2023 CBC W Auto Diffe renti al panel - Blood immature granulocytes /100 leukocytes in blood by automated count 0.4 % IMMAT URE GRANS % 0.4 % 12/04 8:47 PM CDT [facility] Not Available Not Available 04/15/2024 04:24:10 12/05/19 24 12/05/2023 CBC W Auto Diffe renti al panel - Blood neutrophils [#/volume] in blood 5.79 text: 1.80 - 7.70 x10'3/ uL ABS. NEUTR OPHIL S 5.79 1.80 - 7.70 x10'3 /uL 12/04 8:47 PM CDT [facility] Not Available Not Available 04/15/2024 04:24:10 12/05/19 24 12/05/2023 CBC W Auto Diffe renti al panel - Blood lymphocytes [#/volume] in blood 3.74 text: 1.00 - 4.80 x10'3/ uL ABS. LYMPH OCYTE S 3.74 1.00 - 4.80 x10'3 /uL 12/04 8:47 PM CDT [facility] Not Available Not Available 04/15/2024 04:24:10 12/05/19 24 12/05/2023 CBC W Auto Diffe renti al panel - Blood monocytes [#/volume] in blood 0.9 text: 0.24 - 0.86 x10'3/ uL high ABS. MONOC YTES 0.90 (H) 0.24 - 0.86 x10'3 /uL 12/04 8:47 PM CDT [facility] Not Available Not Available 04/15/2024 04:24:10 12/05/19 24 12/05/2023 CBC W Auto Diffe renti al panel - Blood eosinophils [#/volume] in blood 0.29 text: 0.04 - 0.36 x10'3/ uL ABS. EOSIN OPHIL S 0.29 0.04 - 0.36 x10'3 /uL 10/02 /2024 8:47 PM CDT [facility] Not Available Not Available 04/15/2024 04:24:10 12/05/19 24 12/05/2023 CBC W Auto Diffe renti al panel - Blood basophils [#/volume] in blood 0.07 text: 0.01 - 0.08 x10'3/ uL ABS. BASOP HILS 0.07 0.01 - 0.08 x10'3 /uL 12/04 8:47 PM CDT [facility] Not Available Not Available 04/15/2024 04:24:10 12/05/19 24 12/05/2023 CBC W Auto Diffe renti al panel - Blood immature granulocytes [#/volume] in blood 0.04 text: 0.00 - 0.49 x10'3/ uL ABS. IMMAT URE GRANU LOCYT ES 0.04 0.00 - 0.49 x10'3 /uL 12/04 8:47 PM CDT [facility] Not Available Not Available 04/15/2024 [...] - 99 MG/DL 12/05 6:54 AM CDT [facility] Not Available Not Available 04/15/2024 04:24:11 12/06/19 24 12/06/2023 Basic metab olic 2000 panel - Serum or Plasm a urea nitrogen [mass/volume ] in serum or plasma 9 text: 7 - 18 mg/dL BUN 9 7 - 18 MG/DL 12/05 6:54 AM CDT [facility] Not Available Not Available 04/15/2024 04:24:11 12/06/19 24 12/06/2023 Basic metab olic 1999 panel - Serum or Plasm a creatinine [mass/volume ] in serum or plasma 0.81 text: 0.55 - 1.02 mg/dL CREAT ININE S/P/B 0.81 0.55 - 1.02 MG/DL 12/05 6:54 AM CDT [facility] Not Available Not Available 04/15/2024 04:24:11 12/06/1912/06/2023 Basic metab olic 1999 panel - Serum or Plasm a sodium [moles/volum e] in serum or plasma 136 text: 136 - 145 mmol/L SODIU M S/P/B 136 136 - 145 MMOL/ L 12/05 6:54 AM CDT [facility] Not Available Not Available 04/15/2024 04:24:11 12/06/1912/06/2023 Basic metab olic 1999 panel - Serum or Plasm a potassium [moles/volum e] in serum or plasma 4 text: 3.5 - 5.1 mmol/L POTAS SIUM S/P/B 4.0 3.5 - 5.1 MMOL/ L 12/05 6:54 AM CDT [facility] Not Available Not Available 04/15/2024 04:24:11 12/06/1912/06/2023 Basic metab olic 2000 panel - Serum or Plasm a chloride [moles/volum e] in serum or plasma 108 text: 97 - 115 mmol/L CHLOR FRANKLYN S/P/B 108 97 - 115 MMOL/ L 12/05 6:54 AM CDT [facility] Not Available Not Available 04/15/2024 04:24:11 12/06/19 24 12/06/2023 Basic metab olic 2000 panel - Serum or Plasm a carbon dioxide, total [moles/volum e] in serum or plasma 22.7 text: 21 - 32 mmol/L CO2 22.7 21 - 32 MMOL/ L 12/05 6:54 AM CDT [facility] Not Available Not Available 04/15/2024 04:24:11 12/06/1912/06/2023 Basic metab olic 2000 panel - Serum or Plasm a calcium [mass/volume ] in serum or plasma 8.8 text: 8.5 - 10.1 mg/dL CALCI UM S/P/B 8.8 8.5 - 10.1 MG/DL 12/05 6:54 AM CDT [facility] Not Available Not Available 04/15/2024 04:24:11 12/06/1912/06/2023 Basic metab olic 2000 panel - Serum or Plasm a anion gap in serum or plasma 5.3 text: 2 - 10 mmol/L ANION GAP 5.3 2 - 10 MMOL/ L 12/05 6:54 AM T [facility] Not Available Not Available 04/15/2024 04:24:11 12/06/19 24 12/06/2023 Basic metab olic 2000 panel - Serum or Plasm a urea nitrogen/cre atinine [mass ratio] in serum or plasma 11.1 low: 6high: 26 BUN CREAT ININE RATIO 11.1 6 - 26 12/05 6:54 AM [facility] Not Available Not Available 04/15/2024 04:24:11 12/06/1912/06/2023 Basic metab olic 2000 panel - Serum or Plasm a glomerular filtration rate/1.73 sq M.predicted [volume rate/area] in serum, plasma or blood by creatinine-b ased formula (CKD-epi 2020) text: >90 mL/min /1.73 M2 GFR ESTIM ATE >90 >90 ML/OH N/1.7 3 M2 12/05 6:54 AM T [facility] Not Available Not Available 04/15/2024 [...] 11.0 x10'3 /uL 12/05 6:35 AM CDT [facility] Not Available Not Available 04/15/2024 04:24:11 12/06/19 24 12/06/2023 CBC W Auto Diffe renti al panel - Blood erythrocytes [#/volume] in blood by automated count 5.04 text: 4.20 - 5.40 x10'6/ uL RBC 5.04 4.20 - 5.40 x10'6 /uL 12/05 6:35 AM CDT [facility] Not Available Not Available 04/15/2024 04:24:11 12/06/19 24 12/06/2023 CBC W Auto Diffe renti al panel - Blood hemoglobin [mass/volume ] in blood 15 text: 12.0 - 16.0 g/dL HGB 15.0 12.0 - 16.0 G/DL 12/05 6:35 AM CDT [facility] Not Available Not Available 04/15/2024 04:24:11 12/06/19 24 12/06/2023 CBC W Auto Diffe renti al panel - Blood hematocrit [volume fraction] of blood 45.7 % low: 38%hig h: 48% HCT 45.7 38.0 - 48.0 % 12/05 6:35 AM CDT [facility] Not Available Not Available 04/15/2024 04:24:11 12/06/19 24 12/06/2023 CBC W Auto Diffe renti al panel - Blood MCV [entitic volume] 90.7 text: 81.0 - 99.0 fL MCV 90.7 81.0 - 99.0 FL 12/05 6:35 AM CDT [facility] Not Available Not Available 04/15/2024 04:24:11 12/06/19 24 12/06/2023 CBC W Auto Diffe renti al panel - Blood MCH [entitic mass] 29.8 pg low: 27pghi gh: 31pg MCH 29.8 27.0 - 31.0 PG 12/05 6:35 AM CDT [facility] Not Available Not Available 04/15/2024 04:24:11 12/06/19 24 12/06/2023 CBC W Auto Diffe renti al panel - Blood MCHC [mass/volume ] 32.8 text: 32.0 - 36.0 g/dL MCHC 32.8 32.0 - 36.0 G/DL 12/05 6:35 AM CDT [facility] Not Available Not Available 04/15/2024 04:24:11 12/06/19 24 12/06/2023 CBC W Auto Diffe renti al panel - Blood erythrocyte distribution width [entitic volume] by automated count 13.4 % low: 11.5%h igh: 14.5% RDW 13.4 11.5 - 14.5 % 12/05 6:35 AM CDT [facility] Not Available Not Available 04/15/2024 04:24:11 12/06/19 24 12/06/2023 CBC W Auto Diffe renti al panel - Blood platelets [#/volume] in blood 229 text: 130 - 400 x10'3/ uL PLT 229 130 - 400 x10'3 /uL 12/05 6:35 AM CDT [facility] Not Available Not Available 04/15/2024 04:24:11 12/06/1912/06/2023 CBC W Auto Diffe renti al panel - Blood platelet mean volume [entitic volume] in blood 13.2 text: 9.3 - 12.2 fL high MPV 13.2 (H) 9.3 - 12.2 FL 12/05 6:35 AM CDT [facility] Not Available Not Available 04/15/2024 04:24:11 12/06/19 24 12/06/2023 CBC W Auto Diffe renti al panel - Blood differential cell count method - blood AUTOMA COMPA DIFFER ENTIAL DIFFE RENTI AL TYPE AUTOM ATED DIFFE RENTI AL 12/05 6:35 AM CDT [facility] Not Available Not Available 04/15/2024 04:24:11 12/06/19 24 12/06/2023 CBC W Auto Diffe renti al panel - Blood neutrophils/ 100 leukocytes in blood by automated count 85.4 % NEUTR OPHIL S % 85.4 % 12/05 6:35 AM CDT [facility] Not Available Not Available 04/15/2024 04:24:11 12/06/19 24 12/06/2023 CBC W Auto Diffe renti al panel - Blood lymphocytes/ 100 leukocytes in blood by automated count 12.9 % LYMPH OCYTE S % 12.9 % 12/05 6:35 AM CDT [facility] Not Available Not Available 04/15/2024 04:24:11 12/06/19 24 12/06/2023 CBC W Auto Diffe renti al panel - Blood monocytes/10 0 leukocytes in blood by automated count 1 % MONOC YTES % 1.0 % 12/05 6:35 AM CDT [facility] Not Available Not Available 04/15/2024 04:24:11 12/06/19 24 12/06/2023 CBC W Auto Diffe renti al panel - Blood eosinophils/ 100 leukocytes in blood by automated count 0 % EOSIN OPHIL S 0.0 % 12/05 6:35 AM CDT [facility] Not Available Not Available 04/15/2024 04:24:11 12/06/19 24 12/06/2023 CBC W Auto Diffe renti al panel - Blood basophils/10 0 leukocytes in blood by automated count 0.2 % BASOP HILS 0.2 % 12/05 6:35 AM CDT [facility] Not Available Not Available 04/15/2024 04:24:11 12/06/19 24 12/06/2023 CBC W Auto Diffe renti al panel - Blood immature granulocytes /100 leukocytes in blood by automated count 0.5 % IMMAT URE GRANS % 0.5 % 12/05 6:35 AM CDT [facility] Not Available Not Available 04/15/2024 04:24:11 12/06/19 24 12/06/2023 CBC W Auto Diffe renti al panel - Blood neutrophils [#/volume] in blood 6.84 text: 1.80 - 7.70 x10'3/ uL ABS. NEUTR OPHIL S 6.84 1.80 - 7.70 x10'3 /uL 12/05 6:35 AM CDT [facility] Not Available Not Available 04/15/2024 04:24:11 12/06/19 24 12/06/2023 CBC W Auto Diffe renti al panel - Blood lymphocytes [#/volume] in blood 1.03 text: 1.00 - 4.80 x10'3/ uL ABS. LYMPH OCYTE S 1.03 1.00 - 4.80 x10'3 /uL 12/05 6:35 AM CDT [facility] Not Available Not Available 04/15/2024 04:24:11 12/06/1912/06/2023 CBC W Auto Diffe renti al panel - Blood monocytes [#/volume] in blood 0.08 text: 0.24 - 0.86 x10'3/ uL low ABS. MONOC YTES 0.08 (L) 0.24 - 0.86 x10'3 /uL 12/05 6:35 AM CDT [facility] Not Available Not Available 04/15/2024 04:24:11 12/06/19 24 12/06/2023 CBC W Auto Diffe renti al panel - Blood eosinophils [#/volume] in blood 0 text: 0.04 - 0.36 x10'3/ uL low ABS. EOSIN OPHIL S 0.00 (L) 0.04 - 0.36 x10'3 /uL 12/05 6:35 AM CDT [facility] Not Available Not Available 04/15/2024 04:24:11 12/06/19 24 12/06/2023 CBC W Auto Diffe renti al panel - Blood basophils [#/volume] in blood 0.02 text: 0.01 - 0.08 x10'3/ uL ABS. BASOP HILS 0.02 0.01 - 0.08 x10'3 /uL 12/05 6:35 AM CDT [facility] Not Available Not Available 04/15/2024 04:24:11 12/06/19 24 12/06/2023 CBC W Auto Diffe renti al panel - Blood immature granulocytes [#/volume] in blood 0.04 text: 0.00 - 0.49 x10'3/ uL ABS. IMMAT URE GRANU LOCYT ES 0.04 0.00 - 0.49 x10'3 /uL 12/05 6:35 AM CDT [facility] Not Available Not Available 04/15/2024 04:24:11 12/06/19 24 12/06/2023 CBC W Auto Diffe renti al panel - Blood interpretati on and review of laboratory results Abnorm al Not Available Not Available 04:24:11 12/06/1912/06/2023 Lipid 1996 panel - Serum or Plasm a cholesterol [mass/volume ] in serum or plasma 238 text: <200 mg/dL high DERRICK STERO L 238 (H) <200 MG/DL 12/05 6:30 AM CDT [facility] Not Available Not Available 04/15/2024 04:24:11 12/06/19 24 12/06/2023 Lipid 1996 panel - Serum or Plasm a triglyceride [mass/volume ] in serum or plasma 69 text: <150 mg/dL TRIGL YCERI JOJO 69 <150 MG/DL 12/05 6:30 AM T [facility] Not Available Not Available 04/15/2024 04:24:11 12/06/1912/06/2023 Lipid 1996 panel - Serum or Plasm a cholesterol in HDL [mass/volume ] in serum or plasma 72 text: >40.0 mg/dL HDL 72 >40.0 MG/DL 12/05 6:30 AM T [facility] Not Available Not Available 04/15/2024 04:24:11 12/06/1912/06/2023 Lipid 1996 panel - Serum or Plasm a cholesterol in LDL [mass/volume ] in serum or plasma by calculation 152 text: <100 mg/dL high LDL (CALC ULATE D) 152 (H) <100 MG/DL 12/05 6:30 AM [facility] Not Available Not Available 04/15/2024 04:24:11 12/06/1912/06/2023 Lipid 1996 panel - Serum or Plasm a cholesterol non HDL [mass/volume ] in serum or plasma 166 text: <130 mg/dL high NON HDL DERRICK STERO L 166 (H) <130 MG/DL 12/05 6:30 AM [facility] Not Available Not Available 04/15/2024 04:24:11 12/06/1912/06/2023 Lipid 1996 panel - Serum or Plasm a cholesterol. total/choles terol in HDL [mass ratio] in serum or plasma 3.3 low: 0high: 4.5 CHOL/ HDL RATIO 3.3 0.0 - 4.5 12/05 6:30 AM [facility] Not Available Not Available 04/15/2024 04:24:11 12/06/1912/06/2023 Lipid 1996 panel - Serum or Plasm a cholesterol in VLDL [mass/volume ] in serum or plasma by calculation 14 text: 5 - 55 mg/dL VLDL CALCU LATIO N 14 5 - 55 MG/DL 10/03 /2024 6:30 AM CDT [facility] [place] [facility] Not Available Not Available 04/15/2024 04:24:11 12/06/19 24 12/06/2023 Lipid 1996 panel - Serum or Plasm a service comment LIPID INTER PRETA TION 12/05 6:30 AM CDT [facility] [place] [facility] Not Available Not Available 04/15/2024 04:24:11 12/06/19 24 12/06/2023 Lipid 1996 panel - Serum or Plasm a interpretati on and review of laboratory results Abnorm al Not Available Not Available 04:24:11 12/06/19 24 12/06/2023 Thyro tropi n [Unit s/vol ume] in Serum or Plasm a thyrotropin [units/volum e] in serum or plasma 0.398 text: 0.358 - 3.74 uIU/mL TSH 0.398 0.358 - 3.74 uIU/M L 12/05 6:54 AM CDT [facility] Not Available Not Available 04/15/2024 04:24:11 12/06/19 24 12/05/2023 Urina lysis dipst ick W Refle x Micro scopi c panel - Urine collection method - specimen URINE CLEAN CATCH Speci men Type URINE CLEAN CATCH 12/04 7:04 PM CDT [facility] [place] [facility] Not Available Not Available 04/15/2024 04:24:10 12/06/19 24 12/05/2023 Urina lysis dipst ick W Refle x Micro scopi c panel - Urine color of urine YELLOW COLOR (U) YELLO W 12/04 7:22 PM CDT [facility] Not Available Not Available 04/15/2024 04:24:10 12/06/19 24 12/05/2023 Urina lysis dipst ick W Refle x Micro scopi c panel - Urine clarity of urine CLEAR TRANS PAREN CY CLEAR 12/04 7:22 PM CDT [facility] Not [facility] Not Available 04/15/2024 04:24:10 12/06/19 24 12/05/2023 Urina lysis dipst ick W Refle x Micro scopi c panel - Urine specific gravity of urine 1.025 low: 1.001h igh: 1.03 SPECI FIC GRAVI TY (U) 1.025 1.001 - 1.030 12/04 7:22 PM CDT [facility] Not Available Not Available 04/15/2024 04:24:10 12/06/19 24 12/05/2023 Urina lysis dipst ick W Refle x Micro scopi c panel - Urine pH of urine 6 low: 5high: 9 U PH 6.0 5.0 - 9.0 12/04 7:22 PM CDT [facility] Not Available Not Available 04/15/2024 04:24:10 12/06/19 24 12/05/2023 Urina lysis dipst ick W Refle x Micro scopi c panel - Urine leukocytes [#/volume] in urine by test strip NEGATI VE text: negati ve LEUKO CYTES (U) NEGAT GENE NEGAT GENE 12/04 7:22 PM CDT [facility] Not Available Not Available 04/15/2024 04:24:10 12/06/19 24 12/05/2023 Urina lysis dipst ick W Refle x Micro scopi c panel - Urine nitrite [presence] in urine NEGATI VE text: negati ve NITRI JOHN NEGAT GENE NEGAT GENE 12/04 7:22 PM CDT [facility] Not Available Not Available 04/15/2024 04:24:10 12/06/19 24 12/05/2023 Urina lysis dipst ick W Refle x Micro scopi c panel - Urine protein [mass/volume ] in urine by test strip 30 text: <30 mg/dL high PROTE IN RANDO M (U) 30 (H) <30 MG/DL 12/04 7:22 PM CDT [facility] Not Available Not Available 04/15/2024 04:24:10 12/06/19 24 12/05/2023 Urina lysis dipst ick W Refle x Micro scopi c panel - Urine glucose [mass/volume ] in urine NORMAL text: normal mg/dL GLUCO SE (U) ROSEMARY L ROSEMARY L MG/DL 12/04 7:22 PM CDT [facility] Not Available Not Available 04/15/2024 04:24:10 12/06/19 24 12/05/2023 Urina lysis dipst ick W Refle x Micro scopi c panel - Urine ketones [mass/volume ] in urine by test strip NEGATI VE text: negati ve mg/dL KETON ES MG/DL (U) NEGAT GENE NEGAT GENE MG/DL 12/04 7:22 PM CDT [facility] Not Available Not Available 04/15/2024 04:24:10 12/06/19 24 12/05/2023 Urina lysis dipst ick W Refle x Micro scopi c panel - Urine urobilinogen [units/volum e] in urine by test strip 2 text: normal mg/dL abnormal UROBI LINOG EN 2.0 (A) ROSEMARY L MG/DL 12/04 7:22 PM CDT [facility] Not Available Not Available 04/15/2024 04:24:10 12/06/19 24 12/05/2023 Urina lysis dipst ick W Refle x Micro scopi c panel - Urine bilirubin.to luis [mass/volume ] in urine NEGATI VE text: negati ve mg/dL BILIR UBIN (U) NEGAT GENE NEGAT GENE MG/DL 12/04 7:22 PM CDT [facility] Not Available Not Available 04/15/2024 04:24:10 12/06/19 24 12/05/2023 Urina lysis dipst ick W Refle x Micro scopi c panel - Urine erythrocytes [#/volume] in urine by automated test strip 2+ text: negati ve abnormal BLOOD (U) 2+ (A) NEGAT GENE 12/04 7:22 PM CDT [facility] Not Available Not Available 04/15/2024 04:24:10 12/06/19 24 12/05/2023 Urina lysis dipst ick W Refle x Micro scopi c panel - Urine mucus [#/area] in urine sediment by microscopy low power field MANY text: /lpf MUCUS MANY /LPF 12/04 7:22 PM CDT [facility] Not Available Not Available 04/15/2024 04:24:10 12/06/19 24 12/05/2023 Urina lysis dipst ick W Refle x Micro scopi c panel - Urine leukocytes [#/area] in urine sediment by microscopy high power field 3 text: <6 /hpf WBC/H PF 3 <6 /HPF 12/04 7:22 PM CDT [facility] Not Available Not Available 04/15/2024 04:24:10 12/06/19 24 12/05/2023 Urina lysis dipst ick W Refle x Micro scopi c panel - Urine erythrocytes [#/area] in urine sediment by microscopy high power field 4 text: <6 /hpf RBC/H PF 4 <6 /HPF 12/04 7:22 PM CDT [facility] Not Available Not Available 04/15/2024 04:24:10 12/06/19 24 12/05/2023 Urina lysis dipst ick W Refle x Micro scopi c panel - Urine epithelial cells.squamo us [#/area] in urine sediment by microscopy high power field RARE text: /hpf SQUAM OUS EPITH ELIAL S RARE /HPF 12/04 7:22 PM CDT [facility] Not Available Not Available 04/15/2024 04:24:10 12/06/19 24 12/05/2023 Urina lysis dipst ick W Refle x Micro scopi c panel - Urine interpretati on and review of laboratory results Abnorm al Not Available Not Available 04:24:10 12/25/19 24 12/26/2023 ALBUM IN/CR EATIN INE RATIO ,URIN E creatinine, urine 364.1 mg/dL notest ab. Not Available [facility] ([facility]) [address] [facility] [place], [place], [address], 12/26/2023 06:22:05 12/25/19 24 12/26/2023 ALBUM IN/CR EATIN INE RATIO ,URIN E albumin, urine 49.6 ug/mL notest ab. Not Available [facility] ([facility]) [address] [facility] [place], [place], [address], 12/26/2023 06:22:05 12/25/1912/26/2023 ALBUM IN/CR EATIN INE RATIO ,URIN E alb/creat ratio 14 mg/g_ creat 0-29 Rosemary l: 0 - 29 Moder ately incre ased: 30 - 300 Sever tricia incre ased: >300 Not Available [facility] ([facility]) [address] [facility] [place], [place], [address], 12/26/2023 06:22:05 12/25/19 24 12/26/2023 TSH+F REE T4 TSH 0.714 uIU/m L 0.450- 4.500 Not Available [facility] ([facility]) [address] [place], [address], 12/26/2023 06:22:05 12/25/1912/26/2023 TSH+F REE T4 T4,free(dire ct) 1.07 NG/dL 0.82-1 .77 Not Available [facility] ([facility]) [address] [place], [address], 12/26/2023 06:22:05 12/25/19 24 12/26/2023 LIPID PANEL cholesterol, total 225 mg/dL 100-19 9 above high normal Not Available [facility] ([facility]) [address] [facility] [place], [address], 12/26/2023 06:22:06 12/25/1912/26/2023 LIPID PANEL triglyceride s 144 mg/dL 0-149 Not Available [facility] ([facility]) [address] [facility] [place], [address], 12/26/2023 06:22:06 12/25/1912/26/2023 LIPID PANEL HDL cholesterol 55 mg/dL >39 Not Available [facility]) [address] [facility] [place], [address], 12/26/2023 06:22:06 12/25/1912/26/2023 LIPID PANEL VLDL cholesterol elizabeth 26 mg/dL 5-40 Not Available [facility] ([facility]) [address] [place], [address], 12/26/2023 06:22:06 12/25/19 24 12/26/2023 LIPID PANEL LDL chol calc ([facility]) 144 mg/dL 0-99 above high normal Not Available [facility] ([facility]) [address] [place], [address], 12/26/2023 06:22:06 12/25/19 24 12/25/2023 COMP. METAB OLIC PANEL (14) glucose 110 mg/dL 70-99 above high normal Not Available [facility] ([facility]) [address] [place], [address], 12/26/2023 06:22:07 12/25/19 24 12/25/2023 COMP. METAB OLIC PANEL (14) BUN 6 mg/dL 6-20 Not Available [facility] ([facility]) [address] [place], [address], 12/26/2023 06:22:07 12/25/19 24 12/25/2023 COMP. METAB OLIC PANEL (14) creatinine 0.90 mg/dL 0.57-1 .00 Not Available [facility] ([facility]) [address] [facility] [place], [address], 12/26/2023 06:22:07 12/25/19 24 12/25/2023 COMP. METAB OLIC PANEL (14) eGFR 84 mL/mi n/1.7 3 >59 Not Available [facility] ([facility]) [address] [facility] [place], [address], 12/26/2023 06:22:07 12/25/19 24 12/25/2023 COMP. METAB OLIC PANEL (14) BUN/creatini ne ratio 7 9-23 below low normal Not Available [facility] ([facility]) [address] [facility] [place], [address], 12/26/2023 06:22:07 12/25/19 24 12/25/2023 COMP. METAB OLIC PANEL (14) sodium 136 mmol/ L 134-14 4 Not Available [facility] ([facility]) [address] [facility] [place], [address], 12/26/2023 06:22:07 12/25/19 24 12/25/2023 COMP. METAB OLIC PANEL (14) potassium 4.2 mmol/ L 3.5-5. 2 Not Available [facility] ([facility]) [address] [facility] [place], [address], 12/26/2023 06:22:07 12/25/19 24 12/25/2023 COMP. METAB OLIC PANEL (14) chloride 103 mmol/ L 96-106 Not Available [facility] ([facility]) [address] [facility] [place], [address], 12/26/2023 06:22:07 12/25/19 24 12/25/2023 COMP. METAB OLIC PANEL (14) carbon dioxide, total 20 mmol/ L 20-29 Not Available [facility] ([facility]) [address] [facility] [place], [address], 12/26/2023 06:22:07 12/25/19 24 12/25/2023 COMP. METAB OLIC PANEL (14) calcium 8.9 mg/dL 8.7-10 .2 Not Available [facility] ([facility]) [address], [place], [address], 12/26/2023 06:22:07 12/25/19 24 12/25/2023 COMP. METAB OLIC PANEL (14) protein, total 7.5 g/dL 6.0-8. 5 Not Available [facility] ([facility]) [address] [place], [address], 12/26/2023 06:22:07 12/25/19 24 12/25/2023 COMP. METAB OLIC PANEL (14) albumin 4.3 g/dL 3.9-4. 9 Not Available [facility] ([facility]) [address] [place], [address], 12/26/2023 06:22:07 12/25/1912/25/2023 COMP. METAB OLIC PANEL (14) globulin, total 3.2 g/dL 1.5-4. 5 Not Available [facility] ([facility]) [address] [place], [address], 12/26/2023 06:22:07 12/25/19 24 12/25/2023 COMP. METAB OLIC PANEL (14) bilirubin, total 0.4 mg/dL 0.0-1. 2 Not Available [facility] ([facility]) [address] [place], [address], 12/26/2023 06:22:07 12/25/19 24 12/25/2023 COMP. METAB OLIC PANEL (14) alkaline phosphatase 76 IU/L 44-121 Not Available [facility] ([facility]) [address] [place], [address], 12/26/2023 06:22:07 12/25/19 24 12/25/2023 COMP. METAB OLIC PANEL (14) AST (SGOT) 19 IU/L 0-40 Not Available [facility] ([facility]) [address] [facility] [place], [place], [address], 12/26/2023 06:22:07 12/25/19 24 12/25/2023 COMP. METAB OLIC PANEL (14) ALT (SGPT) 19 IU/L 0-32 Not Available [facility] ([facility]) [address] [facility] [place], [place], [address], 12/26/2023 06:22:07 12/25/1912/25/2023 HEMOG LOBIN A1C hemoglobin A1C 6.3 % 4.8-5. 6 above high normal Predi abete s: 5.7 - 6.4 Diabe john: >6.4 Glyce seth contr ol for adult s with diabe john: <7.0 Not Available [facility] ([facility]) [address] [place], [address], 12/26/2023 06:22:09 12/25/1912/25/2023 CBC WITH DIFFE RENTI AL/PL ATELE T WBC 6.6 x10e3 /uL 3.4-10 .8 Not Available [facility] ([facility]) [address] [place], [address], 12/26/2023 06:22:10 12/25/19 24 12/25/2023 CBC WITH DIFFE RENTI AL/PL ATELE T RBC 4.79 x10e6 /uL 3.77-5 .28 Not Available [facility] ([facility]) [address] [place], [address], 12/26/2023 06:22:10 12/25/19 24 12/25/2023 CBC WITH DIFFE RENTI AL/PL ATELE T hemoglobin 14.5 g/dL 11.1-1 5.9 Not Available [facility] ([facility]) [address] [facility] [place], [place], [address], 12/26/2023 06:22:10 12/25/1912/25/2023 CBC WITH DIFFE RENTI AL/PL ATELE T hematocrit 44.3 % 34.0-4 6.6 Not Available [facility] ([facility]) [address] [facility] [place], [place], [address], 12/26/2023 06:22:10 12/25/19 24 12/25/2023 CBC WITH DIFFE RENTI AL/PL ATELE T MCV 93 fL 79-97 Not Available [facility] ([facility]) [address] [facility] [place], [place], [address], 12/26/2023 06:22:10 12/25/19 24 12/25/2023 CBC WITH DIFFE RENTI AL/PL ATELE T MCH 30.3 pg 26.6-3 3.0 Not Available [facility] ([facility]) [address] [facility] [place], [place], [address], 12/26/2023 06:22:10 12/25/19 24 12/25/2023 CBC WITH DIFFE RENTI AL/PL ATELE T MCHC 32.7 g/dL 31.5-3 5.7 Not Available [facility] ([facility]) [address] [facility] [place], [place], [address], 12/26/2023 06:22:10 12/25/19 24 12/25/2023 CBC WITH DIFFE RENTI AL/PL ATELE T RDW 13.2 % 11.7-1 5.4 Not Available [facility] ([facility]) [address] [facility] [place], [place], [address], 12/26/2023 06:22:10 12/25/19 24 12/25/2023 CBC WITH DIFFE RENTI AL/PL ATELE T platelets 191 x10e3 /uL 150-45 0 Not Available [facility] ([facility]) [address] [facility] [place], [place], [address], 12/26/2023 06:22:10 12/25/1912/25/2023 CBC WITH DIFFE RENTI AL/PL ATELE T neutrophils 54 % notest ab. Not Available [facility] ([facility]) [address] [facility] [place], [place], [address], 12/26/2023 06:22:10 12/25/1912/25/2023 CBC WITH DIFFE RENTI AL/PL ATELE T lymphs 32 % notest ab. Not Available [facility] ([facility]) [address] [facility] [place], [place], [address], 12/26/2023 06:22:10 12/25/19 24 12/25/2023 CBC WITH DIFFE RENTI AL/PL ATELE T monocytes 11 % notest ab. Not Available [facility] ([facility]) [address] [facility] [place], [place], [address], 12/26/2023 06:22:10 12/25/1912/25/2023 CBC WITH DIFFE RENTI AL/PL ATELE T eos 2 % notest ab. Not Available [facility] ([facility]) [address] [facility] [place], [place], [address], 12/26/2023 06:22:10 12/25/1912/25/2023 CBC WITH DIFFE RENTI AL/PL ATELE T basos 1 % notest ab. Not Available [facility] ([facility]) [address] [facility] [place], [place], [address], 12/26/2023 06:22:10 12/25/1912/25/2023 CBC WITH DIFFE RENTI AL/PL ATELE T neutrophils (absolute) 3.6 x10e3 /uL 1.4-7. 0 Not Available [facility] ([facility]) [address] [facility] [place], [place], [address], 12/26/2023 06:22:10 12/25/19 24 12/25/2023 CBC WITH DIFFE RENTI AL/PL ATELE T lymphs (absolute) 2.1 x10e3 /uL 0.7-3. 1 Not Available [facility] ([facility]) [address] [facility] [place], [place], [address], 12/26/2023 06:22:10 12/25/19 24 12/25/2023 CBC WITH DIFFE RENTI AL/PL ATELE T monocytes(ab solute) 0.8 x10e3 /uL 0.1-0. 9 Not Available [facility] ([facility]) [address] [facility] [place], [place], [address], 12/26/2023 06:22:10 12/25/19 24 12/25/2023 CBC WITH DIFFE RENTI AL/PL ATELE T eos (absolute) 0.1 x10e3 /uL 0.0-0. 4 Not Available [facility] ([facility]) [address] [facility] [place], [place], [address], 12/26/2023 06:22:10 12/25/19 24 12/25/2023 CBC WITH DIFFE RENTI AL/PL ATELE T baso (absolute) 0.0 x10e3 /uL 0.0-0. 2 Not Available [facility] ([facility]) [address] [facility] [place], [place], [address], 12/26/2023 06:22:10 12/25/19 24 12/25/2023 CBC WITH DIFFE RENTI AL/PL ATELE T immature granulocytes 0 % notest ab. Not Available [facility] ([facility]) [address] [facility] [place], [place], [address], 12/26/2023 06:22:10 12/25/19 24 12/25/2023 CBC WITH DIFFE RENTI AL/PL ATELE T immature grans (abs) 0.0 x10e3 /uL 0.0-0. 1 Not Available [facility] ([facility]) [address] [facility] [place], [place], [address], 12/26/2023 06:22:10 12/25/19 24 12/26/2023 TRIIO DOTHY SARI E (T3), FREE triiodothyro nine (T3), free 2.7 pg/mL 2.0-4. 4 Not Available [facility] ([facility]) [address] [facility] [place], [place], [address], 12/26/2023 06:22:11 12/25/19 24 12/26/2023 HIV AB/P2 4 AG WITH REFLE X HIV Ab/P24 Ag screen NON REACTI VE nonrea ctive HIV-1 /HIV- 2 antib odies and HIV-1 p24 antig en were NOT detec compa. There is no labor atory evide nce of HIV infec tion. HIV Negat gene Not Available [facility] ([facility]) [address] [facility] [place], [place], [address], 12/26/2023 06:22:12 05/29/19 25 05/28/2024 HbA1c (hemo globi n A1c), blood HbA1c 6.1 Not Available In-Office Order Internal Use Only DO Not Attach Compendium DO Not Attach Compendium, Do Not Delete/merge, [id number] 05/28/2024 17:48:26 12/14/19 24 12/14/2023 US, kidne y No observ ation record ed. [facility] [address] [place], [address], 01/03/2024 12:50:08 12/14/19 24 12/14/2023 US, thyro id No observ ation record ed. [facility] [address] [place], [address], 01/01/2024 15:34:25 09/30/19 25 09/28/2024 CT, abdom en + pelvi s, w/wo contr ast No observ ation record ed. [facility] [address], [place], [address], 09/29/2024 13:46:17 Result Notes None recorded. Problems Name Problem SNOMED Code Status Onset Date Resolution Date Notes Provider Name and Address Organization Details Recorded Time Bacterial vaginosis 766736689 Active Desiree [place] [facility] 2 15:09:03 Bacterial vaginosis 091095607 Completed Desiree [place] [facility] 2 15:09:03 Candidiasis of vagina 78875513 Active Desiree [place] [facility] 2 15:09:03 Candidiasis of vagina 22350220 Completed Des[place]e [place] [facility] 2 15:09:03 state 08096893 Completed 06/26/2018 Desiree [place] [facility] 2 15:09:03 state 85369110 Completed Desiree [place] [facility] 2 15:09:03 97867968 Completed 201806/26/2018 Des[place]e [place] [facility] 15:09:03 Deliveries by Active 2018 Desiree [place] [facility] 15:09:03 Deliveries by Completed 2018 Desiree [place] [facility] 15:09:03 Hyperemesis gravidarum 52795717 Completed 2018 Des[place]e [place] [facility] 15:09:03 Hyperemesis gravidarum 61131752 Active 2018 Desiree [place] [facility] 2 15:09:03 Gestational proteinuria 09666653 Completed 2018 Des[place]e [place] [facility] 2 15:09:03 Gestational proteinuria 84946026 Active 2018 Des[place]e [place] [facility] 15:09:03 Small for gestational age fetus 509412955 Completed 2018 Desiree [place] [facility] 2 15:09:03 Small for gestational age fetus 674768199 Active 2018 Des[place]e [place] [facility] 15:09:03 Headache 55473792 Active 2021 Des[place]e [place] [facility] 15:09:03 Dizziness 931437381 Active 2021 Des[place] [facility] 2 15:09:03 Mixed anxiety and depressive disorder 485175285 Active 2024 FERMÍN ARCHIBALD PA-C Attn: Rodolfo moura,[address] [facility], [place], [address], [place] [facility] 5 16:30:04 Essential hypertensio n 08608622 Active 2024 FERMÍN ARCHIBALD PA-C Attn: Rodolfo moura,[address] [facility], [place], [address], [place] [facility] 5 17:46:44 Notes:Some problems listed i n Documents: #[id number], #[id number], #[id number] could not be added to this patient's chart. Please review these documents and add these problems to the patient's chart manually as needed. Problem Notes None recorded. Procedures Surgical History Date Name Laterality Status Provider Name and Address Organization Details Recorded Time 1 Control Implant Removal completed WILMAR SAM Attn: Accounting,[address] [facility], [place], [address], [place] [facility] 12/02/2020 15:37:31 9 Control Implant Insertion completed Yuniel Shelton [place] [facility] 02/20/2019 15:07:17 9 SECTION (SURG) completed Desiree Wallace [place] - [facility] 09/26/2021 15:09:08 9 Date of Last Pap Smear completed Desiree [place] [facility] 09/26/2021 15:09:03 6 Caesarean Section completed Des[place]e [place] [facility] 09/26/2021 15:09:09 9 Caesarean Section completed Desiree [place] [facility] 09/26/2021 15:09:09 Imaging Results [...] Updated DateTime 5 162.56 cm 39.8 kg/m2 335808. 79 g 98 % 98 % 66 /min 130/88 mm[Hg] Zenobia Wright [place] [facility] 5 16:02:19 Date Recorded Body height Body mass index (BMI) Body weight Body temperature Oxygen saturation Oxygen saturation in Arterial blood by Pulse oximetry Heart rate Systolic And Diastolic Provider Name and Address Organization Details Last Updated DateTime 5 162.56 cm 41.9 kg/m2 252092. 59 g 97.9 [degF] 98 % 98 % 76 /min 128/82 mm[Hg] Pao Almanzar [facility] 5 16:50:28 Date Recorded Systolic And Diastolic Provider Name and Address Organization Details Last Updated DateTime 11/26/2023 138/94 mm[Hg] SURAJ CHANG Attn: Accounting,[address] [place], [address], [place] - [facility] 11/26/2023 10:27:44 Date Recorded Body height Body mass index (BMI) Body weight Oxygen saturation Oxygen saturation in Arterial blood by Pulse oximetry Heart rate Systolic And Diastolic Provider Name and Address Organization Details Last Updated DateTime 4 162.56 cm 40 kg/m2 432988. 3 g 96 % 96 % 80 /min 148/100 mm[Hg] Zenobia Wright MA [facility] 4 09:58:02 Date Recorded Body height Body mass index (BMI) Body weight Systolic And Diastolic Provider Name and Address Organization Details Last Updated DateTime 12/12/2023 162.56 cm 39.1 kg/m2 321466.34 g 134/82 mm[Hg] Zenobia Wright MA [facility] 12/12/2023 10:52:11 Date Recorded Body height Body mass index (BMI) Body weight Body temperature Oxygen saturation Oxygen saturation in Arterial blood by Pulse oximetry Heart rate Systolic And Diastolic Provider Name and Address Organization Details Last Updated DateTime 4 162.56 cm 38.8 kg/m2 799808. 28 g 97.6 [degF] 98 % 98 % 78 /min 132/80 mm[Hg] EMMY Enamorado [facility] 4 16:34:39 Social History Question Answer Notes LastModified by Organizat ion Details LastModified Time Tobacco Smoking Status Former Smoker Zenobia Wright MA null, [facility] 11/26/2023 09:56:33 Do You Have An Advance [...] Illicit Or Recreational Drugs Have You Used? Denies [email or web address] Information not available 07/12/2018 Education 11 Information no t available 12/09/2014 Have There Been Any Changes To Your Family Or Social Situation? No Information not available 12/09/2014 Frequent Air Travel No Information not available 12/09/2014 Illicit Drugs Pre- Denies Pt States No Illegal Drugs [email or web address] Information not available 07/12/2018 How Many Years Have You Used Illicit Or Recreational Drugs? 0 Information not available 11/19/2018 Live Alone Or With Others? With Others And Children [email or web address] Information not available 07/12/2018 Marital Status Informatio n not available 12/09/2014 What Was The Date Of Your Most Recent Tobacco Screening? 05/28/2024 [email or web address] Information not available 05/28/2024 How Many Children Do You Have? 5 [email or web address] Information not available 07/12/2018 Performs Monthly Self-breast [...] Date Was Tobacco Cessation Counseling Provided? 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 Never used electronic cigarettes Information not available 11/19/2018 What is your exercise level? Occasional [email or web address] Information not available 07/12/2018 Mental Status None recorded. Family History Relationship Description Onset Age of this Age Resolved Age Notes LastModified by Organization Details LastModified Time Father No current problems or disability [email or web address] Not available 09/26 15:09:03 Mother No current problems or disability [email or web address] Not available 09/26 15:09:03 Medical History Condition Response Coronary Artery Disease N Kidney Cyst N Blood Diseases N Hyperthyroidism N Blood Transfusion N MRSA N Blood disorders N Emphysema N Blood Clots N COPD N Depression N Pneumonia N Premature N Peripheral Arterial Disease N Edema N TIA N Headaches/Migraines N [...] Hospitalizations N Brain Tumors N Acne N Skin Problems N Eating Disorder N Meningitis N Constipation N Tuberculosis N Cerebral Palsy N Myocardial Infarction N Asthma Y Substance Abuse N Peripheral Vascular Disease N Vertigo N Sleep Disorder N Cirrhosis N Pulmonary Embolism N Chicken Pox N Hematologic Disease N Flomax Use Past or Present N Anxiety/Depression N Thyroid Disease N Colon Cancer N Lung Disease N Glaucoma N Developmental or Behavioral Disorders N Bipolar N Pacemaker N Diverticulitis/Diverticulosis N Orthopedic Problems N Anesthesia Complications N Orthotics N Head Injury/Concussion N Congenital Anomalies N Germain Bite N Chronic Kidney Disease N Endometriosis N Liver Disease N Schizophrenia N Dialysis N Speech Delay N Chronic Obstructive Pulmonary Disease N Parkinson's Disease N Thyroid Problems N GI Problems N Developmental Delay N Anemia N Multiple Sclerosis N Immune System Disorder N Colon Polyps N Heart Attack ([place]) N Diabetes N Cardiomyopathy N Blood Transfusions N Heart Problems/Murmur N Eye Trauma N Congestive Heart Failure (CHF) N Valvular Heart Disease N Hyperlipidemia N Double Vision N Abuse/Domestic Violence N Hepatitis B N Lupus N Epilepsy/Seizures N Reflux/GERD N Aneurysm N Heart Disease N Bronchitis N Pre-Eclampsia N Hypertension N Heart Failure N Other N Gout [...] N Kidney Failure N Ocular trauma N Diverticulitis N Dementia N Sleep Apnea N Mental Problems N [...] Hib, unspecified formulation 3 completed Not Available [facility] 2022 01:23:51 MMR 0 completed Not Available [facility] 2022 01:23:51 MMR 1 completed Not Available [facility] 2022 01:23:51 DTP 3 completed Not Available [facility] 2022 01:23:51 DTP 3 completed Not Available [facility] 2022 01:23:51 DTP 9 completed Not Available [facility] 2022 01:23:51 DTP 1 completed Not Available [facility] 2022 01:23:51 OPV, trivalent 0 completed Not Available [facility] 2022 01:23:51 OPV, trivalent 3 completed Not Available [facility] 2022 01:23:51 OPV, trivalent 3 completed Not Available [facility] 2022 01:23:51 OPV, trivalent 9 completed Not Available [facility] 2022 01:23:51 OPV, trivalent 1 completed Not Available [facility] 2022 01:23:51 Influenza, split virus, trivalent, PF 7 completed Not Available [facility] 2022 01:23:51 Td (adult), 2 Lf tetanus toxoid, preservative free, adsorbed 4 completed Not Available [facility] 2022 01:23:51 Hep B, adolescent or pediatric 8 completed Not Available [facility] 2022 01:23:51 Hep B, adolescent or pediatric 8 completed Not Available [facility] 2022 01:23:51 Hep B, adolescent or pediatric 7 completed Not Available [facility] 2022 01:23:51 Tdap 9 completed Not Available [facility] 03/22/2019 02:38:12 Influenza, split virus, quadrivalent, PF 0 completed Karissa De La Vega MA [facility], [facility] 04/25/2019 09:21:24 Past Encounters Encounter ID Performer Location Encounter Start Date Encounter Closed Date Diagnosis/Indication Diagnosis SNOMED-CT Code Diagnosis ICD10 Code Diagnosis Note [id number] Rajat Frank MD [facility] ([facility]) [address] [place] [id number] 12/09/2014 11:50:28 12/09/2014 13:36:45 Second trimester 47170674 Z3A.25 [id number] Rajat Frank MD [facility] ([facility]) [address] [place] [address] [id number] 12/25/2014 09:55:45 12/25/2014 11:39:49 Second trimester 76533136 Z3A.25 [id number] Rajat Frank MD [facility] (PLATE CLEANER) [address] [place] [address] [id number] 0 03/01/2015 11:10:30 03/01/2015 11:51:50 Third trimester 50448529 [id number] Rajat Frank MD [facility] (PLATE CLEANER) [address] [place] [address] [id number] 0 03/09/2015 11:25:23 03/09/2015 13:39:19 Third trimester 87200551 Z33.1 [id number] Rajat Frank MD [facility] ([facility]) [address] [place] [address] [id number] 03/18/2015 09:55:36 03/18/2015 13:14:17 Third trimester 71506083 Z33.1 03/18/15 Will schedule for repeat at 41 weeks on 03/24/15. [id number] [facility] [address] [place] [address] [id number] 0 04/01/2015 10:22:27 04/01/2015 11:34:56 state 87082940 Z39.2 [id number] [facility] [address] [place] [address] [id number] 0 04/29/2015 10:25:42 04/29/2015 15:26:57 state 74321434 Z39.2 Subcutaneo us contraceptive implant present 162293183 Z30.743 [id number] [facility] [address] [place] [address] [id number] 0 06/26/2018 15:41:41 06/26/2018 17:47:45 Routine care 459676380 Z34.91 Bacterial vaginosis 4197 15239 N76.0 Candidiasis of vagina 72 150582 B37.3 Asthma 424094909 J45.90 9 Deliveries by [id number] O82 [id number] [facility] [address] [place] [address] [id number] 0 07/12/2018 12:10:34 07/12/2018 12:34:33 Routine care 921483349 Z34.91 [id number] [facility] [address] [place] [address] [id number] 08/01/2018 15:52:10 08/20/2018 10:18:20 Routine care 855667496 Z34.91 Deliveries by [id number] O82 Alpha-feto protein test - 532397124 Z36.1 [id number] [facility] [address] [place] [address] [id number] 0 09/04/2018 12:56:50 09/06/2018 14:19:53 Routine care 499769493 Z34.91 Deliveries by [id number] O82 Generalize d anxiety disorder 70058503 F41.1 [id number] MD Tl Alcantar (PLATE CLE[employer]ER) [address] [place] [address] [id number] 0 10/03/2018 15:52:10 10/04/2018 13:52:02 Routine care 221901723 Z34.91 Deliveries by [id number] O82 [id number] [facility] [address] [place] [address] [id number] 0 11/19/2018 15:49:44 11/20/2018 14:03:02 Routine care 834694815 Z34.91 Deliveries by [id number] O82 - induced hypertension 23541732 O13.9 Streptococ elizabeth sore throat 94678231 J02.0 Nausea and vomiting 1693 2000 R11.2 [id number] [facility] [address] [place] [address] [id number] 0 11/26/2018 12:34:04 2018 15:55:56 Routine care 924264949 Z34.91 screening 2437 33718 Z36.9 [id number] [facility] [address] [place] [address] [id number] 0 12/10/2018 11:52:31 12/11/2018 12:14:18 Routine care 387106640 Z34.91 Deliveries by [id number] O82 Vomiting of 90 710612 O21.9 Gestationa l proteinuria 79374540 O12.13 [id number] WILMAR SAM (PLATE CLE[employer]ER) [address] [place] [address] [id number] 12/19/2018 11:57:09 12/23/2018 10:13:18 Routine care 379548346 Z34.83 Deliveries by [id number] O82 Acid reflux 238959025 K2 1.9 Gestationa l proteinuria 97651304 O12.13 24 hour urine wnl. BP stable today. Vomiting of 90 467251 O21.9 [id number] MD [facility] (PLATE CLEANER) [address] [place] [address] [id number] 0 01/15/2019 12:50:08 01/15/2019 13:28:07 Routine care 930378451 Z34.91 Deliveries by [id number] O82 - induced hypertension 17118452 O13.9 BP 140/100 in office; sent to labor and delivery with PIH orders; see if patient needs to be delivered sooner than scheduled c/s sunday [id number] MD Tl Alcantar (PLATE CLEANER) [address] [place] [address] [id number] 02/20/2019 14:26:21 02/20/2019 15:32:55 Deliveries by [id number] O82 care 80784297 8 Z39.2 Implantati on of subcutaneous contraceptive 847092178 Z30.9 At increas ed risk of sexually transmitted infection 643253733 Z20.2 [id number] MD [facility] ([facility]ER) [address] [place] [address] [id number] 0 04/23/2019 10:14:38 04/24/2019 14:09:22 Subcutaneous contraceptive implant palpable 042906234 Z30.46 Family sadaf nning surveillance 548455136 Z30.09 At increas ed risk of sexually transmitted infection 756078808 Z20.2 Administra tion of influenza vaccine 10096684 Z23 Heavy epis ode of vaginal bleeding 768207784 N93.9 Abdominal pain 46187931 R10.9 [id number] WILMAR SAM (PLATE CLE[employer]ER) [address] [place] [address] [id number] 0 02/09/2020 10:22:35 02/10/2020 08:20:48 Venereal disease screening 617272998 Z11.3 Partner tested positive for trichomona s, pt requests full STD/STI testing. Safe sex practices discussed, condoms provided. Urogenital infection by Trichomonas vaginalis 83100438 A59.00 Vaginal irritation and burning x 3-4 days. PE with green frothy discharge. Start Flagyl as prescribed . Advised abstinence until at least 1 week after both partners completed treatment. RTC in 2-3 months for retesting. [id number] WILMAR SAM ([employer]ER) [address] [place] [address] [id number] 0 08/11/2020 11:06:27 08/28/2020 19:33:24 Surveillance of subcutaneous contraceptive implant 069671127 Z30.46 Nexplanon inserted 2019, pt reports prolonged [...] from . History of sexually transmitted disease 288849912 Z86.19 Positive trich 02/2020. Asymptomat ic. Safe sex practices discussed. Abnormal u terine bleeding 7627697767 9100 N93.9 Nexplanon induced. Check for anemia due to prolonged menses. [id number] WILMAR SAM (PLATE CLE[employer]ER) [address] [place] [address] [id number] 12/02/2020 10:23:20 12/03/2020 07:08:47 Removal of subcutaneous contraceptive 962641580 Z30.46 Nexplanon removed from LUE w/o issue as detailed in procedure note. Contracept ion care management 591960385 Z30.9 Discussed different control options with patient such as OCPs, ring, Depo Provera shot, and IUDs. Pt interested in annual vaginal ring. Counseled her on use, SE and RF. RTC in 3 months. Acute stress disorder 67 611467 F43.0 Pt states the police just took her son and she would like referral to . Declines medication s today. Venereal d isease screening 316131273 Z11.3 Pt requests STD/STI testing. Asymptomat ic. Safe sex practices discussed. [id number] MD Tl Julio (Adult Med) [address] [place] [address] [id number] 0 09/23/2021 14:09:09 09/26/2021 09:12:15 Mixed anxiety and depressive disorder 405509192 F41.8 !6 Y/O sone had OD, on medication s, mother od 6 kids, head ache, nauseated, no photosensi tivity,. [id number] MD Tl Julio (Adult Med) [address] [place] [address] [id number] 10/07/2021 12:37:17 10/10/2021 10:29:12 Mixed anxiety and depressive disorder 330818437 F41.8 !6 Y/O sone had OD, on medication s, mother of 6 kids, head ache, nauseated, no photosensi tivity,. May return to work as she requested, and F/U with [facility] as scheduled. She agreed. [id number] MD Tl Julio (Adult Med) [address] [place] [address] [id number] 0 10/24/2021 15:48:45 11/02/2021 07:48:12 Chronic headache disorder 786804320 G44.89 Seems controlled symptomes with keppra. No dizzy spell today. Has enough med . [id number] WILMAR SAM (Adult Med) [address] [place] [address] [id number] 0 11/17/2022 14:21:20 12/04/2022 12:01:15 Adult health examination 392973043 Z00.00 37yo F with no significan t medical history presenting as new patient, taiwo drake from Dr. Cummings. Annual labs ordered. A&P as below. Obesity 986538524 E66.9 BMI 39.5. Recommende d daily exercise with a goal of 150 min/week of moderate-s trenuous activity and a balanced diet with an emphasis on fruits, vegetables , whole grains, legumes, lean protein, and mono/polyu nsaturated fats. Elevated blood-pressure reading without diagnosis of hypertension 657584894 R03.0 BP 130s/90s today. Will continue to monitor. Discussed DASH diet, regular exercise, weight reduction, and smoking cessation. Headache 13816217 R51.9 Likely tension headaches. Discussed headache hygiene. Rx for IBU prn. RTC if symptoms do not improve. Smoker 44150706 F17.200 Smokes cigars (Black and Milds). Counseled on smoking cessation. [id number] MD Tl Lorenzana (Adult Med) [address] [place] [address] 11/26/2023 09:34:58 2023 12:30:39 Essential hypertension 53280283 I10 BP today: 148/100 and 138/94 BP [...] contact patient with results Left flank pain 33693623 9 R10.9 CVA tenderness to L side on PE todayUA dipUrine Cx sent todayUS kidney- bilateral- r/o hydronephr osis/stone s Mixed anxi ety and depressive disorder 537248636 F41.8 Be physically active. Doing 30 minutes [...] the numbers for these national suicide hotlines: 8-883-151- TALK (8-506-922 -5613) and 0-834-SUIC [place] (6-694-823 -1033). If you or someone you know talks about suicide or feels hopeless, seek help immediatel y. Start sertraline 25mg daily Adult heal th examination 521647983 Z00.00 Routine labs ordered- will contact pt with results Morbid obesity 811729312 E66.01 BMI 40 Advised decreased portion sizes, good food choices, limited eating out or fast food and eliminate soda and juice from diet. Advised physical activity daily and offered encouragem ent to continue with positive changes. Depression screening 171 693251 Z13.31 PHQ9- Mild (8 out of 27) Mental hea lth screening 850271258 Z13.39 GAD7- Mild (9 out of 21) Influenza vaccination declined 494018346 Z28.21 Nodular goiter 662604482 E04.9 Bilateral swelling L>R noted on PE todayU/S thyroid orderedLab s orderedWil l contact pt with results [id number] Mallory Peterson MD [facility] (Adult Med) [address] [place] [address] 12/12/2023 10:32:10 12/17/2023 12:55:01 Mixed anxiety and depressive disorder 257442061 F41.8 Be physically active. Doing 30 minutes [...] the numbers for these national suicide hotlines: 8-464-273- TALK (9-429-816 -2400) and 4-666-SUIC [place] (8-657-103 -6128). If you or someone you know talks about suicide or feels hopeless, seek help immediatel y. Increase sertraline from 25mg to 50mg dailyRTC 6 weeks Essential hypertension 13129712 I10 BP today: 134/82 BP Goal: Less [...] dailyStart Losartan 25mg daily Tension-type headache 39 7074814 G44.209 Start acetaminop hen 500mg 2 tabs q6h PRN pain Obesity 766313064 E66.81 2 BMI 39.1 Advised decreased portion sizes, good food choices, limited eating out or fast food and eliminate soda and juice from diet. Advised physical activity daily and offered encouragem ent to continue with positive changes. [id number] Mallory Peterson MD [facility] (Adult Med) [address] [place] [address] 01/07/2024 16:28:14 01/07/2024 17:22:04 Mixed anxiety and depressive disorder 256235724 F41.8 Be physically active. Doing 30 minutes [...] the numbers for these national suicide hotlines: 5-588-637- TALK (4-612-745 -9148) and 7-848-SUIC [place] (4-046-404 -7807). If you or someone you know talks about suicide or feels hopeless, seek help immediatel y. Increase sertraline from 25mg to 50mg dailyRTC 2 months Tension-type headache 39 3978216 G44.209 C/W acetaminop hen 500mg 2 tabs q6h PRN pain Obesity 088692585 E66.81 2 BMI 38.8Advise d decreased portion sizes, good food choices, limited eating out or fast food and eliminate soda and juice from diet. Advised physical activity daily and offered encouragem ent to continue with positive changes. Depression screening 171 893834 Z13.31 PHQ9- Negative (0 out of 27) Mental hea [facility] screening [id number] Z13.39 GAD7- Negative (0 out of 21) [id number] MD Tl Lorenzana (Adult Med) [address] [place] [address] 04/15/2024 15:33:34 04/16/2024 13:01:55 Essential hypertension 87972166 I10 BP today: 130/88 BP Goal: Less [...] daily Mixed anxi ety and depressive disorder 095258778 F41.8 Be physically active. Doing 30 minutes [...] the numbers for these national suicide hotlines: 3-075-551- TALK (6-453-454 -6673) and 2-315-SUIC [place] ([phone] -0470). If you or someone you know talks about suicide or feels hopeless, seek help immediatel y. C/W sertraline 50mg dailyRTC 6 weeks Obesity 428355770 E66.81 2 BMI 39.8 Advised decreased portion sizes, good food choices, limited eating out or fast food and eliminate soda and juice from diet. Advised physical activity daily and offered encouragem ent to continue with positive changes. Depression screening 171 585882 Z13.31 PHQ9- Moderate (00 out of 27) Mental hea [facility] screening [id number] Z13.39 GAD7- Negative (4 out of 21) [id number] Mallory Peterson MD [facility] (Adult Med) [facility] [place] [address] 05/28/2024 16:37:02 05/29/2024 14:13:04 Essential hypertension 31261452 I10 BP today: 130/88 BP Goal: Less [...] dailyIncre ase Losartan to 100mg daily Prediabetes 175955867 R7 3.03 A1C today 6.1C/w metformin ER 500mg daily Mixed anxi ety and depressive disorder 342916655 F41.8 Be physically active. Doing 30 minutes [...] the numbers for these national suicide hotlines: -197-397- TALK (8-573-643 -0004) and 6-023-SUIC [place] (3-425-068 -2824). If you or someone you know talks about suicide or feels hopeless, seek help immediatel y. C/W sertraline 50mg dailyc/w hydroxizin eRTC 3 months Constipation 16966320 K5 9.00 Start MiraLax daily Increase water intake, increase fiber intake. Thyroid nodule 382245123 E04.1 R thyroid gland measures 6a5d1hbM thyroid gland measures 6g8m2kaRgd hmus measures 0.3cm 3u8p6ba L superior and inferior thyroid nodules, which represent TI Rads 4 nodules Dysphagia 44401159 R13.1 0 Morbid obesity 832223941 E66.01 BMI 40 Advised decreased portion sizes, good food choices, limited eating out or fast food and eliminate soda and juice from diet. Advised physical activity daily and offered encouragem ent to continue with positive changes. Depression screening 171 142575 Z13.31 PHQ9- Mild (7 out of 27) Mental hea lth screening 598665446 Z13.39 GAD7- Negative (1 out of 21) Health Concerns Section Related Observation LastModified by Organization Detai ls LastModified Time None Recorded Concern Status LastModified by Organization Details LastModified Time None Recorded Advance Directives Directive N: Payers Insurance Date Sequence Insurance Name Policy Number Policy Fry Covered Member ID Fry Member ID Guarantor Name 11/26/2023 1 [facility] [id number] Beth L Prowell [id number] Beth Prowell 08/25/2024 1 [employer] [id number] Beth L Prowell [id number] Beth Prowell 09/26/2021 1 *SELF PAY* ameka Prowell 12/12/2023 2 [place] [facility] [place] Beth Prowell [id number] Beth Prowell 11/26/2023 1 [facility] - DOS PRIOR TO 2020 (MEDICAID REPLACEMENT - HMO) Beth Prowell [id number] Beth Prowell 11/26/2023 1 [place] [facility] [place] Beth Prowell [id number] Beth Prowell 11/26/2023 1 [employer] (POS) [id number] Beth L Prowell [id number] Beth Prowell 11/26/2023 2 [place] [facility] [place] Beth Prowell [id number] Beth Prowell 11/26/2023 2 [facility] (MEDICARE REPLACEMENT/A DVANTAGE - HMO) Beth Probernard [id number] Beth Connellybernard 11/26/2023 1 [facility] (MEDICAID HMO) Beth Connellybernard [id number] Beth Jade OBGyn Episode Ob Episode Information Episode Created Date Number of Fetuses Patient Bloodtype Patient rh Status Prepregnancy Weight lbs Domestic Partner Domestic Partner Phone Father Name Database Administrator Status 06/27/19 19 1 A Positive 230 CLOSED Fetus Data First Name Last Name Admitted to NICU Weight (g) Sex Living Outcome Pediatric Complications Fetus ID Race Codes Race Delivery Type Journe y Prowe ll false 2834.95 F Full Term 56284 2058-6 Afric an Ameri can Repeat Problems 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 Repeat c/s. Baby girl per ultrasound, no name yet, Breast feeding going to try to breastfeed. [facility] Nexplanon. having a baby girl no name yet blanca rice 09/04/201812/10 still no name yet. blanca rice 12/10/2018 [facility] MR# [id number] Problem Name Start Date End Date Resolution Snomed Code Not e Deliveries by 06/26/2018 268202 004 Small for gestational age fetus 12/20/2018 430154503 Hyperemesis gravidarum 12/10/2018 155131 01 Gestational proteinuria 12/19/2018 63501 000 Michael Calculation Initial Michael Date Initial Exam Date Initial Exam Provider Initial Ultrasound Date Last Menstrual Period Date Ultra Sound Weeks Gestation 01/19/2019 06/26/2018 [email or web address] 07/08/2018 04/12/2018 12 Eighteen To Twenty Week Michael Update Ultra Sound Date Fundal Height At Umbil Quickening Date Ultra Sound Latest Weeks Gestation Final Michael Confirmed By Final Michael Confirmed Date Final Michael Date Ultra Sound Latest Days Gestation 0 [email or web address] 08/01/2018 01/20/20 19 0 Pre-makenna Flowsheet Flowsheet Date 06/26/2018 Marte Score Blood Edema Fundus Height Fundus Units Glucose Ketones Leukocytes Nitrite Labor Signs Protein Cervic Dilation Cervic Effacement Cervic Station neg none none negative neg Type Weight in lbs Pre/Post Dialysis Refused Weight 230.045146941927 BP Diastolic BP Location Tested BP Systolic [...] Weight in lbs Pre/Post Dialysis Refused Weight 236.278530859602 BP Diastolic BP Location Tested BP Systolic BP Type Fetus Heart Rate Present A 150 Present Fetus Movement A No Comments Flowsheet Date 09/04/2018 Marte Score Blood Edema Fundus Height Fundus Units Glucose Ketones Leukocytes Nitrite Labor Signs Protein Cervic Dilation Cervic Effacement Cervic Station neg none negative 1+ Type Weight in lbs Pre/Post Dialysis Refused Weight 236.128889593151 BP Diastolic BP Location Tested BP Systolic [...] Weight in lbs Pre/Post Dialysis Refused Weight 237.611195269911 BP Diastolic BP Location Tested BP Systolic [...] in lbs Pre/Post Dialysis Refused With clothes 223.409650056280 BP Diastolic BP Location Tested BP Systolic BP Type 90 140 sitting Fetus Heart Rate Present A 142 Present Fetus Movement A Yes Comments send over for SHYLA hilliard [facility] Flowsheet Date 11/26/2018 Marte Score Blood Edema Fundus Height Fundus Units Glucose Ketones Leukocytes Nitrite Labor Signs Protein Cervic Dilation Cervic Effacement Cervic Station neg none 35 cm none negative none trace Type Weight in lbs Pre/Post Dialysis Refused Weight 230.418266724799 BP Diastolic BP Location Tested BP Systolic [...] in lbs Pre/Post Dialysis Refused With clothes 220.712090666795 BP Diastolic BP Location Tested BP Systolic BP Type 64 110 sitting 64 132 sitting Fetus Heart Rate Present A 145 Present Fetus Movement A Yes Comments [facility] and [facility] + [...] in lbs Pre/Post Dialysis Refused With clothes 218.446705774045 BP Diastolic BP Location Tested BP Systolic [...] in lbs Pre/Post Dialysis Refused With clothes 217.540234263392 BP Diastolic BP Location Tested BP Systolic BP Type 100 140 sitting Fetus Heart Rate Present A 160 Present Fetus Movement A Yes Comments Flowsheet Date 02/20/2019 Marte Score Blood Edema Fundus Height Fundus Units Glucose Ketones Leukocytes Nitrite Labor Signs Protein Cervic Dilation Cervic Effacement Cervic Station Type Weight in lbs Pre/Post Dialysis Refused With clothes 204.399572561211 BP Diastolic BP Location Tested BP Systolic BP Type Fetus Heart Rate Present Fetus Movement Comments Menstrual History Last Menstrual Date Menses Monthly On Bcp Conception Prior Menses Frequency Hcg Plus Date Menarche Onset Age 0204/12/2018 true 28 13 Genetic Screening And Infection History Question Response Note Patient's Age Will Be 35 Years Or Older At Estim ated Date of Delivery false Thalassemia (Bangladeshi, Finnish, Mediterranean, Or Background): MCV < 80 false Neural Tube Defect (Meningomyelocele, Spina Bifi da, Or Anencephaly) false Congenital Heart Defect false Down Syndrome false Renny-Sachs (eg, Orthodox, Cajun, Indian-Burleigh) f alse Emily Disease false Sickle Cell Disease Or Trait () false Hemophilia Or Other Blood Disorders false Muscular Dystrophy false Cystic Fibrosis false Wibaux's Chorea false Mental Retardation/Autism false If Yes, [...] Anticipated course of care Discu ssed at [facility] [place] [place]. [email or web address] 07/12/2018 Alcohol Discussed at [facility] [place] [place]. 07/12/2018 Intimate partner violence Denies. ap amanda 07/12/2018 Environmental/work hazards Discussed at [facility] [place]. [email or web address] 07/12/2018 Screening for aneuploidy apa heavenly 07/12/2018 Nutrition counseling ; special diet; dietary precautions (mercury, listeriosis) Discussed at [facility] [place] [place]. 07/12/2018 Childbirth classes/hospital facilities Di scussed at [facility] [place] [place]. [email or web address] 07/12/2018 HIV and other routine tests Disc ussed at [facility] [place] [place]. [email or web address] 07/12/2018 Risk factors identif ied by history Discussed at [facility] [place] [place]. 07/12/2018 Weight gain counseling Discussed at [facility] [place] [place]. [email or web address] 07/12/2018 Exercise Discussed at [facility] [place] [place]. [email or web address] 07/12/2018 Teratogens [email or web address] 07/12/2018 Use of any medicatio ns (including supplements, vitamins, herbs, or OTC drugs) [email or web address] 07/12/2018 Discussed at [facility] [place] [place]. apaer5 7 07/12/2018 Sexual activity [email or web address] 07/12/2018 Tobacco/smoking cess ation counseling (ask, advise, assess, assist, and arrange) Discussed at [facility] [place] [place]. [email or web address] 07/12/2018 Illicit/recreational drugs Discussed at [facility] [place]. [email or web address] 07/12/2018 Dental care Discussed at [facility] [place] [place]. [email or web address] 07/12/2018 Travel Discussed at [facility] [place] [place]. [email or web address] 07/12/2018 Seat belt use Discussed at [facility] [place] [place]. apaer5 7 07/12/2018 Indications for ultrasonography Discussed at [facility] [place] [place]. 07/12/2018 Avoidance of saunas or hot tubs Discussed at [facility] [place] [place]. [email or web address] 07/12/2018 Toxoplasmosis precau tions (cats/raw meat) No cats in home. [email or web address] Second Trimester Discussed Date Discussion Item Discussion Note Discuss ed By 12/19/2018 Selecting a care provider orly amos 12/19/[address] anning/tubal sterilization nexplanon 12/19/2018 Depression screening (when indicated) [email or web address] 12/19/2018 [facility] 12/19/2018 Signs and symptoms of labor [email or web address] 12/19/2018 Intimate partner violence ms [email or web address] 12/19/2018 Tobacco/smoking cess ation counseling (ask, advise, assess, assist, and arrange) [email or web address] Third Trimester Discussed Date Discussion Item Discussion Note Discuss ed By 12/19/2018 Anesthesia plans spinal repeat [email or web address] Circumcision baby girl 12/19/2018 yes [email or web address] 12/19/2018 Labor signs wtc/wlb given [email or web address] 12/19/2018 Family medical leave or disability forms Gave to Mackenzie YAP paperwork to be filled out. 12/19/2018 mds [email or web address] 12/19/2018 Trial of labor after (TOLAC) counseling n/a [email or web address] Delivery Information Delivery Date Delivery Type Labor [...] Domestic Partner Domestic Partner Phone Father Name Database Administrator Status 12/10/19 15 1 CLOSED Fetus Data First Name Last Name Admitted to NICU Weight (g) Sex Living Outcome Pediatric Complications Fetus ID Race Codes Race Delivery Type , Spontane ous 43829 Michael Calculation Initial Michael Date Initial Exam [...] Domestic Partner Domestic Partner Phone Father Name Database Administrator Status 12/10/19 15 1 CLOSED Fetus Data First Name Last Name Admitted to NICU Weight (g) Sex Living Outcome Pediatric Complications Fetus ID Race Codes Race Delivery Type 3203.49 35 M Full Term 17818 Primary Michael Calculation Initial Michael Date Initial [...] Domestic Partner Domestic Partner Phone Father Name Database Administrator Status 12/10/19 15 1 A Positive 202 Ramírez Jade Khalil [employer] CLOSED Fetus Data First Name Last Name Admitted to NICU Weight (g) Sex Living Outcome Pediatric Complications Fetus ID Race Codes Race Delivery Type Julia Calero PROSADIA LL false 3090.09 56 F Full Term Simran Cat 84604 4-5 Black or Afric an Ameri can Problems Problem Notes Problem Name Start Date End Date Resolution Snomed Code Not e Bacterial vaginosis 515114074 Candidiasis of vagina 97571623 state 09879635 Michael Calculation Initial Michael Date Initial Exam [...] Type Weight in lbs Pre/Post Dialysis Refused 202.568252355274 BP Diastolic BP Location Tested BP Systolic BP Type 74 122 sitting Fetus Heart Rate Present Fetus Movement A Yes Comments Flowsheet Date 12/25/2014 Marte Score Blood Edema Fundus Height Fundus Units Glucose Ketones Leukocytes Nitrite Labor Signs Protein Cervic Dilation Cervic Effacement Cervic Station neg none 28 cm none negative neg Type Weight in lbs Pre/Post Dialysis Refused 202.200890856807 BP Diastolic BP Location Tested BP Systolic [...] Type Weight in lbs Pre/Post Dialysis Refused 202.497902948715 BP Diastolic BP Location Tested BP Systolic [...] Type Weight in lbs Pre/Post Dialysis Refused 204.948366498778 BP Diastolic BP Location Tested BP Systolic [...] Type Weight in lbs Pre/Post Dialysis Refused 203.85702138537 BP Diastolic BP Location Tested BP Systolic BP Type 88 140 sitting Fetus Heart Rate Present A 144 Present Fetus Movement A Yes Comments Flowsheet Date 04/01/2015 Marte Score Blood Edema Fundus Height Fundus Units Glucose Ketones Leukocytes Nitrite Labor Signs Protein Cervic Dilation Cervic Effacement Cervic Station Type Weight in lbs Pre/Post Dialysis Refused 186.670490746275 BP Diastolic BP Location Tested BP Systolic BP Type 104 158 sitting Fetus Heart Rate Present Fetus Movement Comments Flowsheet Date 04/29/2015 Marte Score Blood Edema Fundus Height Fundus Units Glucose Ketones Leukocytes Nitrite Labor Signs Protein Cervic Dilation Cervic Effacement Cervic Station trace none none negative neg Type Weight in lbs Pre/Post Dialysis Refused 182.931799491426 BP Diastolic BP Location Tested BP Systolic BP Type 104 148 sitting Fetus Heart Rate Present Fetus Movement Comments Menstrual History Last Menstrual Date Menses Monthly On Bcp Conception Prior Menses Frequency Hcg Plus Date Menarche Onset Age 0406/10/2014 Genetic Screening And Infection History Question Response Note Patient's Age Will Be 35 Yea rs Or Older At Estimated Date of Delivery false Thalassemia (Bangladeshi, Finnish, Mediterranean, Or Background): MCV < 80 false Neural Tube Defect (Meningom yelocele, Spina Bifida, Or Anencephaly) false Congenital Heart Defect false Down Syndrome false Renny-Sachs (eg, Orthodox, Cajun, Indian-[place]) f alse Emily Disease false Sickle Cell Disease Or Trait () false Hemophilia Or Other Blood Disorders false Muscular Dystrophy false Cystic Fibrosis false Wibaux's Chorea false Mental Retardation/Autism false If Yes, [...] Domestic Partner Domestic Partner Phone Father Name Database Administrator Status 12/10/19 15 1 CLOSED Fetus Data First Name Last Name Admitted to NICU Weight (g) Sex Living Outcome Pediatric Complications Fetus ID Race Codes Race Delivery Type 2919.99 85 M Full Term 11960 Vaginal Michael Calculation Initial Michael Date Initial [...] Domestic Partner Domestic Partner Phone Father Name Database Administrator Status 12/10/19 15 1 CLOSED Fetus Data First Name Last Name Admitted to NICU Weight (g) Sex Living Outcome Pediatric Complications Fetus ID Race Codes Race Delivery Type 2381.35 8 F Full Term 92149 Vaginal Michael Calculation Initial Michael Date Initial [...] Domestic Partner Domestic Partner Phone Father Name Database Administrator Status 12/10/19 15 1 CLOSED Fetus Data First Name Last Name Admitted to NICU Weight (g) Sex Living Outcome Pediatric Complications Fetus ID Race Codes Race Delivery Type 2948.34 8 M Full Term 66268 Vaginal Michael Calculation Initial Michael Date Initial [...]
--- NOTE | 2024-09-30 13:32 | CY_PTH ---
PATIENT: Beth Hansen LOC: [facility]G #:[id number] AGE/SX: 38/F ROOM: RE09/30/[address]: Cameron Ayala, WILMAR : 1985 BED: DIS: 09/30/2024 SPEC #: [id number] RECD: 09/30/24 13:41 STATUS: GARRET REQ #: [id number] ARACELIS: 09/30/24 13:[address]: Jamie,Cameron Gilbert DEPT: [facility] Cytology RECD BY: Luisana Doherty MLT, ([facility]) Tissues: A - FNA Thyroid Procedures: Hematoxylin and Eosin Stain Cell Block Fine Needle Aspiration Evaluation Fine Needle Aspiration Pathologist
== END 2024-09-30 12:41 | disposition home or self-care (01) ==
PROVIDERS: PCP Physician Assistant Medical; Visit Provider Physician Assistant Medical
DX: E04.1 Nontoxic single thyroid nodule (principal)
CPT/HCPCS: 10005; 88172; 88173; 88305